=== PATIENT | male | born 1970 | race Caucasian/White ===

== ENCOUNTER 2017-01-27 09:44 | Emergency (ER) | payer SELFPAY ==
[2017-01-27] MEDS ORDERED: NORMAL SALINE 1000 ML 1,000 ML IV ONE (10:25)
[2017-01-27 10:26] LABS: ABSOLUTE EOSINOPHILS # (AUTO) 0.2 10^3/uL (0.0-0.6); ABSOLUTE LYMPHOCYTES (AUTO) 1.7 10^3/uL (0.5-4.7); ABSOLUTE MONOCYTES (AUTO) 0.5 10^3/uL (0.1-1.4); ABSOLUTE NEUT (AUTO) 4.3 10^3/uL (1.7-8.2); BASOPHILS % (AUTO) 0.5 % (0-2); EOSINOPHILS % (AUTO) 2.8 % (0-6); HEMATOCRIT 45.9 % (37.9-51.0); HGB HCT DIFFERENCE 2.1; LYMPHOCYTES % (AUTO) 25.1 % (13-45); MEAN CORPUSCULAR HGB CONC 34.9 g/dL (32.0-36.0); MEAN CORPUSCULAR VOLUME 86 fl (80-97); MONOCYTES % (AUTO) 7.5 % (3-13); RED BLOOD COUNT 5.34 10^6/uL (4.35-5.55); RED CELL DISTRIBUTION WIDTH 13.7 % (11.5-14.0); SEGMENTED NEUTROPHILS % (AUTO) 64.1 % (42-78); WHITE BLOOD COUNT 6.6 10^3/uL (4.0-10.5)
[2017-01-27 10:30] LABS: APPEARANCE,URINE CLEAR; BILIRUBIN,URINE NEGATIVE (NEGATIVE); GLUCOSE, URINE >=500 mg/dL (NEGATIVE); KETONES,URINE NEGATIVE (NEGATIVE); LEUKOCYTE ESTERASE,URINE NEGATIVE (NEGATIVE); NITRITE,URINE NEGATIVE (NEGATIVE); PROTEIN,URINE NEGATIVE (NEGATIVE); URINE SPECIFIC GRAVITY 1.032; UROBILINOGEN,URINE NEGATIVE mg/dL (<2.0)
--- NOTE | 2017-01-27 10:31 | ER Document Report ---
ED Blood Sugar Problem - General Chief Complaint: High Blood Sugar Stated Complaint: BLOOD SUGAR PROBLEM Mode of Arrival: Ambulatory Information source: Patient TRAVEL OUTSIDE OF THE [place] IN LAST 30 DAYS: No - HPI Onset: This morning Onset/Duration: Gradual, Persistent Quality of pain: No pain - FEELS ODD Severity: Mild Insulin taken: No Glucose taken: No Associated symptoms: Dry mucous membranes, Increased thirst, Frequent urination , Weakness Similar symptoms previously: Yes Recently seen / treated by doctor: No - RECENTLY BECAME EMPLOYED, NO LONGER ELIGIBLE FOR [facility]. - Related Data Allergies/Adverse Reactions: No Known Allergies Allergy (Verified 01/27/17 09:59) Past Medical History - General Information source: Patient - Social History Smoking Status: Current Every Day Smoker Cigarette use (# per day): Yes Chew tobacco use (# tins/day): No Smoking Education Provided: No Frequency of alcohol use: None Drug Abuse: None Lives with: Spouse/Significant other Family History: DM Patient has suicidal ideation: No Patient has homicidal ideation: No - Past Medical History Cardiac Medical History: Reports: Hx Congestive Heart Failure Pulmonary Medical History: Reports: Hx COPD EENT Medical History: Reports: None Neurological Medical History: Reports: None Endocrine Medical History: Reports: Hx Diabetes Mellitus Type 2 Renal/ Medical History: Reports: None. Denies: Hx Peritoneal Dialysis Malignancy Medical History: Reports None Musculoskeltal Medical History: Reports None Psychiatric Medical History: Reports: None Past Surgical History: Reports: Hx Appendectomy, Hx Orthopedic Surgery, Hx Tonsillectomy - Immunizations Hx Diphtheria, Pertussis, Tetanus Vaccination: Yes Review of Systems - Review of Systems Constitutional: Weakness EENT: See HPI Cardiovascular: No symptoms reported Respiratory: No symptoms reported Gastrointestinal: No symptoms reported Genitourinary: No symptoms reported Musculoskeletal: No symptoms reported Skin: No symptoms reported Neurological/Psychological: No symptoms reported Physical Exam - Vital signs Vitals: Temp Pulse Resp BP Pulse Ox 98.2 F 73 18 112/71 93 01/27/17 09:51 01/27/17 09:51 01/27/17 09:51 01/27/17 09:51 01/27/17 09:51 Interpretation: Normal - General General appearance: Appears well, Alert In distress: None - HEENT Head: Normocephalic Eyes: Normal Conjunctiva: Normal Ears: Normal Nasal: Normal Mouth/Lips: Normal Mucous membranes: Dry Pharynx: Normal Neck: Normal - Respiratory Respiratory status: No respiratory distress Chest status: Nontender - Cardiovascular Rhythm: Regular Heart sounds: Normal auscultation Murmur: No - Abdominal Inspection: Obese - Extremities General upper extremity: Normal inspection General lower extremity: Normal inspection - Neurological Neuro grossly intact: Yes Cognition: Normal Orientation: AAOx4 - Psychological Associated symptoms: Normal affect, Normal mood - Skin Skin Temperature: Warm Skin Moisture: Dry Skin Color: Normal Skin Turgor: Elastic Course - Vital Signs Vital signs: Temp Pulse Resp BP Pulse Ox 98.2 F 73 18 112/71 99 01/27/17 09:51 01/27/17 09:51 01/27/17 09:51 01/27/17 09:51 01/27/17 13:00 - Laboratory Result Diagrams: 01/27/17 10:15 01/27/17 10:15 Laboratory results interpreted by me: 01/27/17 01/27/17 01/27/17 10:15 10:15 10:41 Sodium 136.6 L Glucose 434 H* POC Glucose 446 H* Urine Glucose (UA) >=500 H 01/27/17 01/27/17 01/27/17 11:36 12:32 13:37 Sodium Glucose POC Glucose 400 H 319 H 282 H Urine Glucose (UA) Discharge - Discharge Clinical Impression: Hyperglycemia without ketosis Diabetes type 2, uncontrolled Qualifiers: Diabetes mellitus complication status: without complication Diabetes mellitus care home insulin use: unspecified buttermaker insulin use status Qualified Code(s ): E11.65 - Type 2 diabetes mellitus with hyperglycemia Condition: Stable Disposition: HOME, SELF-CARE Instructions: Diabetes ([facility]), Glucophage (OM), Oral Hypoglycemic Medication ( OM) Additional Instructions: REDUCE YOUR METFORMIN TO 1000 mg TWICE A DAY. BEGIN TAKING GLIPIZIDE, 10 mg EACH MORNING. TAKE INSULIN 70/30, 20 UNITS EACH MORNING AND 20 UNITS EACH EVENING. FOLLOW THE RECOMMENDED DIABETIC DIET. [facility]LLOW UP WITH [facility], OR WITH THE [facility] CLINIC AT [facility]. Prescriptions: Glipizide [Glucotrol 10 mg Tablet] 10 mg PO QAM #30 tablet Forms: Smoking Cessation Education
[2017-01-27 10:51] LABS: ALANINE AMINOTRANSFERASE 40 U/L (21-72); ALKALINE PHOSPHATASE 103 U/L (38-126); ANION GAP 13 (5-19); ASPARTATE AMINO TRANSFERASE 20 U/L (17-59); BILIRUBIN,DIRECT 0.3 mg/dL (0.0-0.4); BLOOD UREA NITROGEN 12 mg/dL (7-20); CALCIUM 9.3 mg/dL (8.4-10.2); CARBON DIOXIDE 26 mmol/L (22-30); CHLORIDE 98 mmol/L (98-107); CREATININE RESULT 0.76 mg/dL (0.52-1.25); POTASSIUM 4.6 mmol/L (3.6-5.0); SODIUM 136.6 mmol/L (137-145); TOTAL PROTEIN 6.8 g/dL (6.3-8.2)
[2017-01-27] MEDS ORDERED: INSULIN REG, HUMAN 100 UNIT/ML 3 ML VIAL (PYX) IV ONE (11:04)
[2017-01-27] MEDS ORDERED: NORMAL SALINE 100 ML with INSULIN REGULAR, HUMAN 100 UNIT IV PRN ×2 (11:05)
[2017-01-27] MEDS ORDERED: NORMAL SALINE 1000 ML 1,000 ML IV PRN (11:05)
[2017-01-27 11:14] LABS: GLUCOSE 434 mg/dL (75-110)
[2017-01-27] MEDS ORDERED: INSULIN REG, HUMAN 100 UNIT/ML 3 ML VIAL (PYX) ONE (11:34)
[2017-01-27 14:39] VITALS: BP 116/79
--- NOTE | 2017-01-27 15:07 | EKG REPORT ---
SEVERITY:- BORDERLINE ECG - SINUS RHYTHM PROBABLE LEFT ATRIAL ABNORMALITY : Confirmed by: Dustin Pantoja 27-Jan-2017 15:05:49
== END 2017-01-27 14:38 | disposition home or self-care (01) ==
LOC: ER 09:44
DX: E11.65 Type 2 diabetes mellitus with hyperglycemia (principal); J44.9 Chronic obstructive pulmonary disease, unspecified; R53.1 Weakness; R35.0 Frequency of micturition; R63.1 Polydipsia; F17.210 Nicotine dependence, cigarettes, uncomplicated; Z83.3 Family history of diabetes mellitus
CPT/HCPCS: 93005; 99285; 96360; 36415; 82962; 85025; 80053; 81001; 93010; J1815; J7030

== ENCOUNTER 2017-01-28 10:57 | Emergency (ER) | payer SELFPAY ==
--- NOTE | 2017-01-28 11:13 | ER Document Report ---
ED Medical Screen (RME) - General Stated Complaint: BLOOD SUGAR PROBLEM Time seen by provider: 11:12 Mode of Arrival: Ambulatory Information source: Patient Notes: 47-year-old male presents to ED for lightheadedness slightly dizzy blood sugar of 328 before he ate and 358 and hour ago. He states he is a type II diabetic. He states he uses metformin and insulin. States his normal blood sugar is around 200. I have greeted and performed a rapid initial assessment of this patient. A comprehensive ED assessment and evaluation of the patient, analysis of test results and completion of medical decision making process will be conducted by an additional ED providers. TRAVEL OUTSIDE OF THE [place] IN LAST 30 DAYS: No - Related Data Allergies/Adverse Reactions: No Known Allergies Allergy (Verified 01/28/17 11:11) Past Medical History - Past Medical History Cardiac Medical History: Reports: Hx Congestive Heart Failure Pulmonary Medical History: Reports: Hx COPD Endocrine Medical History: Reports: Hx Diabetes Mellitus Type 2 Renal/ Medical History: Denies: Hx Peritoneal Dialysis Past Surgical History: Reports: Hx Appendectomy, Hx Orthopedic Surgery, Hx Tonsillectomy - Immunizations Hx Diphtheria, Pertussis, Tetanus Vaccination: Yes Physical Exam - Vital signs Vitals: Temp Pulse Resp BP Pulse Ox 98.2 F 71 17 125/69 98 01/28/17 11:09 01/28/17 11:01/28/17 11:01/28/17 11:09 01/28/17 11:09 Course - Vital Signs Vital signs: Temp Pulse Resp BP Pulse Ox 98.2 F 71 17 125/69 98 01/28/17 11:09 01/28/17 11:09 01/28/17 11:09 01/28/17 11:09 01/28/17 11:09
[2017-01-28 11:58] LABS: ABSOLUTE EOSINOPHILS # (AUTO) 0.1 10^3/uL (0.0-0.6); ABSOLUTE LYMPHOCYTES (AUTO) 1.8 10^3/uL (0.5-4.7); ABSOLUTE MONOCYTES (AUTO) 0.4 10^3/uL (0.1-1.4); ABSOLUTE NEUT (AUTO) 3.6 10^3/uL (1.7-8.2); BASOPHILS % (AUTO) 0.5 % (0-2); EOSINOPHILS % (AUTO) 2.5 % (0-6); HEMATOCRIT 42.3 % (37.9-51.0); HEMOGLOBIN 14.7 g/dL (13.5-17.0); HGB HCT DIFFERENCE 1.8; LYMPHOCYTES % (AUTO) 29.7 % (13-45); MEAN CORPUSCULAR HGB CONC 34.9 g/dL (32.0-36.0); MEAN CORPUSCULAR VOLUME 86 fl (80-97); MONOCYTES % (AUTO) 7.3 % (3-13); RED BLOOD COUNT 4.92 10^6/uL (4.35-5.55); RED CELL DISTRIBUTION WIDTH 13.5 % (11.5-14.0)
[2017-01-28 12:05] LABS: APPEARANCE,URINE CLEAR; BILIRUBIN,URINE NEGATIVE (NEGATIVE); GLUCOSE, URINE >=500 mg/dL (NEGATIVE); KETONES,URINE NEGATIVE (NEGATIVE); LEUKOCYTE ESTERASE,URINE NEGATIVE (NEGATIVE); NITRITE,URINE NEGATIVE (NEGATIVE); PROTEIN,URINE NEGATIVE (NEGATIVE); URINE SPECIFIC GRAVITY 1.032; UROBILINOGEN,URINE NEGATIVE mg/dL (<2.0)
[2017-01-28 12:25] LABS: ALANINE AMINOTRANSFERASE 39 U/L (21-72); ALBUMIN 3.7 g/dL (3.5-5.0); ALKALINE PHOSPHATASE 102 U/L (38-126); ANION GAP 9 (5-19); ASPARTATE AMINO TRANSFERASE 20 U/L (17-59); BILIRUBIN,DIRECT 0.3 mg/dL (0.0-0.4); BILIRUBIN,TOTAL 0.7 mg/dL (0.2-1.3); BLOOD UREA NITROGEN 9 mg/dL (7-20); CALCIUM 9.2 mg/dL (8.4-10.2); CARBON DIOXIDE 26 mmol/L (22-30); CHLORIDE 103 mmol/L (98-107); CREATININE RESULT 0.72 mg/dL (0.52-1.25); GLUCOSE 327 mg/dL (75-110); POTASSIUM 4.3 mmol/L (3.6-5.0); SODIUM 138.3 mmol/L (137-145); TOTAL PROTEIN 6.5 g/dL (6.3-8.2)
--- NOTE | 2017-01-28 13:49 | ER Document Report ---
ED Blood Sugar Problem - General Mode of Arrival: Ambulatory Information source: Patient TRAVEL OUTSIDE OF THE [place] IN LAST 30 DAYS: No - HPI Patient complains to provider of: Hyperglycemia Onset: This morning Associated symptoms: Other - see notes above <BECKY MAC - Last Filed: 01/28/17 13:42> <BENY ALVAREZ - Last Filed: 02/02/17 21:16> - General Chief Complaint: High Blood Sugar Stated Complaint: BLOOD SUGAR PROBLEM Notes: 47 year old male with history of diabetes (insulin dependent) presents to the ED complaining of dizziness and hyperglycemia that started this morning. Patient states that his blood sugar was 328 this morning and medicated with 70/ 30 insulin. Patient states that he isn't prescribed the insulin, but is approved by the [facility] to use his friend's insulin. Patient additionally takes metformin that is prescribed by the [facility]. Patient explains that he went a period of time in between jobs without insurance , but will reestablish insurance in 45 days. Patient was recently seen in the ED with similar complaints and states he was given a prescription for Glucotrol. Patient last saw the [facility] over 3 months ago. ( BECKY MAC) - Related Data Allergies/Adverse Reactions: No Known Allergies Allergy (Verified 01/28/17 11:11) Past Medical History - General Information source: Patient - Social History Smoking Status: Current Every Day Smoker Chew tobacco use (# tins/day): No Frequency of alcohol use: None Drug Abuse: None Family History: DM Patient has suicidal ideation: No Patient has homicidal ideation: No - Past Medical History Cardiac Medical History: Reports: Hx Congestive Heart Failure Pulmonary Medical History: Reports: Hx COPD Endocrine Medical History: Reports: Hx Diabetes Mellitus Type 2 Renal/ Medical History: Denies: Hx Peritoneal Dialysis Past Surgical History: Reports: Hx Appendectomy, Hx Orthopedic Surgery, Hx Tonsillectomy - Immunizations Hx Diphtheria, Pertussis, Tetanus Vaccination: Yes <BECKY MAC - Last Filed: 01/28/17 13:42> Review of Systems - Review of Systems Constitutional: No symptoms reported EENT: No symptoms reported Cardiovascular: See HPI, Dizziness, Other - hyperglycemia Respiratory: No symptoms reported Gastrointestinal: No symptoms reported Genitourinary: No symptoms reported Male Genitourinary: No symptoms reported Musculoskeletal: No symptoms reported Skin: No symptoms reported Hematologic/Lymphatic: No symptoms reported Neurological/Psychological: No symptoms reported -: Yes All other systems reviewed and negative <BECKY MAC - Last Filed: 01/28/17 13:42> Physical Exam - General General appearance: Alert In distress: None - HEENT Head: Normocephalic, Atraumatic Eyes: Normal Extraocular movements intact: Yes Pupils: PERRL - Respiratory Respiratory status: No respiratory distress Breath sounds: Normal - Cardiovascular Rhythm: Regular Heart sounds: Normal auscultation - Abdominal Inspection: Normal Distension: No distension Tenderness: Nontender - Back Back: Normal - Extremities General upper extremity: Normal inspection, Normal ROM General lower extremity: Normal inspection, Normal ROM - Neurological Neuro grossly intact: Yes Cognition: Normal Orientation: AAOx4 [place] Coma Scale Eye Opening: Spontaneous [place] Coma Scale Verbal: Oriented [place] Coma Scale Motor: Obeys Commands [place] Coma Scale Total: 15 Speech: Normal - Psychological Associated symptoms: Normal affect, Normal mood - Skin Skin Temperature: Warm Skin Moisture: Dry Skin Color: Normal <MAC,BECKY - Last Filed: 01/28/17 13:42> Course - Laboratory Result Diagrams: 01/28/17 11:25 01/28/17 11:25 <BECKY MAC - Last Filed: 01/28/17 13:42> - Laboratory Result Diagrams: 01/28/17 11:25 01/28/17 11:25 <BENY ALVAREZ - Last Filed: 02/02/17 21:16> - Re-evaluation Re-evalutation: 01/28/17 14:07 I personally performed the services described in the documentation, reviewed and edited the documentation which was dictated to my scribe in my presence, and it accurately records my words and actions. Patient presents emergency Department with elevated blood sugar it's been elevated for quite some time they're unable to afford it. He is not in DKA as an appointment has meds but he can't afford them. He is not symptomatic no chest pain or shortness of breath. Talked to the major case detective she actually is aware of a free clinic for diabetes in [facility] he's been given the information says is going to follow up with her tomorrow discussed follow-up locally and help with prescription medications and reasons for ED return sooner (BENY ALVAREZ) - Vital Signs Vital signs: Temp Pulse Resp BP Pulse Ox 98.2 F 69 17 128/69 H 96 01/28/17 11:09 01/28/17 14:30 01/28/17 11:09 01/28/17 14:30 01/28/17 14:30 - Laboratory Laboratory results interpreted by me: 01/28/17 01/28/17 01/28/17 11:17 11:25 11:25 Glucose 327 H POC Glucose 321 H Urine Glucose (UA) >=500 H Discharge <BECKY MAC - Last Filed: 01/28/17 13:42> <BENY ALVAREZ - Last Filed: 02/02/17 21:16> - Discharge Clinical Impression: Hyperglycemia Condition: Stable Disposition: HOME, SELF-CARE Additional Instructions: Hyperglycemia (High Blood Sugar) You have an abnormally high blood sugar. Not all high blood sugar requires long-term treatment. High blood sugar can be due to medications, , or the stress of illness. (These cases are "borderline diabetes.") If the doctor feels your high blood sugar might resolve with time, you may not require treatment now. You will be scheduled for further evaluation. It's very important that you follow through, to see if the blood sugar returns to normal levels. Uncontrolled high blood sugar leads to early heart disease, strokes, nerve damage, eye damage, and kidney damage. Call the physician if there is faintness, excess sleepiness, or very rapid breathing. You have been given information for the diabetic clinic in [facility] follow -up with them in 1-2 days and discussed reasons Fredia return sooner Forms: Return to Work Scribe Documentation - Scribe Written by Hector:: Hector Steve, 01/28/2017 1351 acting as scribe for :: Jeet <BECKY MAC - Last Filed: 01/28/17 13:42>
[2017-01-28 20:21] VITALS: BP 128/69
== END 2017-01-28 14:30 | disposition home or self-care (01) ==
LOC: ER 10:57
DX: E11.65 Type 2 diabetes mellitus with hyperglycemia (principal); F17.200 Nicotine dependence, unspecified, uncomplicated
CPT/HCPCS: 36415; 80053; 81001; 82962; 85025; 99284

== ENCOUNTER 2017-06-28 19:08 | Emergency (ER) | payer SELFPAY ==
[2017-06-28] MEDS ORDERED: LIDOCAINE 1% INJ-PF (10 MG/ML) 30 ML SDV INJ ONE (19:58)
[2017-06-28] MEDS ORDERED: OXYCODONE-ACETAMINOPHEN 5-325 MG TABLET PO ONE (19:58)
[2017-06-28] MEDS ORDERED: SULFAMETHOXAZOLE/TRIMETHOPRIM 800-160 MG TABLET PO ONE (19:58)
--- NOTE | 2017-06-28 20:00 | ER Document Report ---
ED Skin Rash/Insect Bite/Abscs - General Chief Complaint: Abscess Stated Complaint: ABSCESS Time Seen by Provider: 06/28/17 19:43 TRAVEL OUTSIDE OF THE [place] IN LAST 30 DAYS: No - HPI Patient complains to provider of: Tender/swollen area Onset: Other - 4-5 days ago Onset/Duration: Gradual, Worse Quality of pain: Achy, Pressure Severity: Severe Pain Level: 5 Skin Character: Abscess - left side of the gluteal fold below the anus Skin Temperature: Hot Quality of rash: Painful Identify cause: No Similar symptoms previously: Yes - h/o abscess and MRSA Notes: Denies any fevers, chills, active drainage from the site. Patient with a history of diabetes, high blood pressure and congestive heart failure. [facility] - Related Data Allergies/Adverse Reactions: No Known Allergies Allergy (Verified 06/28/17 19:12) Past Medical History - Social History Smoking Status: Current Every Day Smoker Family History: DM - Past Medical History Cardiac Medical History: Reports: Hx Congestive Heart Failure Pulmonary Medical History: Reports: Hx COPD Endocrine Medical History: Reports: Hx Diabetes Mellitus Type 2 Renal/ Medical History: Reports: Hx Kidney Stones. Denies: Hx Peritoneal Dialysis Past Surgical History: Reports: Hx Appendectomy, Hx Orthopedic Surgery, Hx Tonsillectomy - Immunizations Hx Diphtheria, Pertussis, Tetanus Vaccination: Yes Review of Systems - Review of Systems Constitutional: No symptoms reported Skin: See HPI -: Yes All other systems reviewed and negative Physical Exam - Vital signs Vitals: Temp Pulse Resp BP Pulse Ox 99.3 F 99 20 121/67 97 06/28/17 19:13 06/28/17 19:13 06/28/17 19:13 06/28/17 19:13 06/28/17 19:13 - General General appearance: Appears well, Alert In distress: Mild - Respiratory Respiratory status: No respiratory distress Chest status: Nontender Breath sounds: Normal Chest palpation: Normal - Cardiovascular Rhythm: Regular Heart sounds: Normal auscultation, S1 appreciated, S2 appreciated Murmur: No Pulses: Normal: Radial Normal capillary refill: Yes - Rectal Tenderness: Yes Hemorrhoids: None - Neurological Neuro grossly intact: Yes Cognition: Normal Orientation: AAOx4 [place] Coma Scale Eye Opening: Spontaneous [place] Coma Scale Verbal: Oriented [place] Coma Scale Motor: Obeys Commands [place] Coma Scale Total: 15 - Skin Notes: Abscess within the gluteal fold on the left side measuring approximately 10 cm of indurated tissue with an abscess pocket of approximately 4 cm in diameter. Erythema approximately 5 cm in diameter. Tender to touch with central fluctuance. No active drainage. Course - Re-evaluation Re-evalutation: 06/28/17 21:50 Patient is a 47-year-old male who is hemodynamic stable, no acute distress afebrile. I&D performed at the bedside for approximately 12-15 cc of purulent material. Site was irrigated and packed using iodoform gauze. Patient to follow-up in 2-3 days for wound check. Patient initiated on Bactrim given history of MRSA. Wound culture sent. Patient given strict return precautions otherwise stable for discharge home can follow-up with us as scheduled. - Vital Signs Vital signs: Temp Pulse Resp BP Pulse Ox 98.2 F 98 18 113/68 99 06/28/17 21:35 06/28/17 21:35 06/28/17 21:35 06/28/17 21:35 06/28/17 21:35 Procedures - Incision and Drainage Left Buttock Type: Simple Anesthetic type: 1% Lidocaine mL's of anesthetic: 15 Blade size: 11 I&D procedure: Betadine prep applied, Iodoform packing placed Incision Method: Incision made by scalpel Amount/type of drainage: 15cc purulent material Discharge - Discharge Clinical Impression: Abscess Condition: Good Disposition: HOME, SELF-CARE Additional Instructions: Please return for a wound check in 2-3 days ABSCESS: You have an abscess (boil). This a pus-forming infection, usually due to staph. Some boils may be left to drain on their own, but most require lancing. From the time the tender lump first appears, it may be three or four days before the abscess is ready to wendy. Local heat and rest help at this stage of treatment. An antibiotic may prevent spread of the infection. Once the abscess is opened, packing may be placed into it. This is done so pus is not sealed inside by premature closure of the cavity. The packing will be removed at your follow-up visit or you may be advised to remove it yourself at home. Sometimes this packing must be replaced a few times during healing. The wound will heal with surprisingly little scar. Depending on the size and location of an abscess, healing can take one to four weeks. You may shower and wash the area around the incision site two or three times a day. Antibiotics may be prescribed, but are usually not necessary after an abscess has been drained. If you develop fever, chills, worsening pain, or increasing swelling in the area, call the doctor or return immediately. POST INCISION AND DRAINAGE: You have had an incision made to allow drainage of an abscess. The incision must remain open so that pus and debris can drain from the wound. If the abscess cavity is large, packing is placed. This keeps the tissues from collapsing and trapping pus inside, while the body shrinks the cavity. The packing may need to be replaced every day or two. The physician will instruct you on the packing. Keep a bulky dressing over the area. Replace it if it becomes saturated with blood or pus. Do not disturb the packing (if present). You may shower and cleanse the area with gentle soap and warm water two or three times a day. Local warmth may be soothing, and may promote faster healing. Return if you develop high fever or chills, or if you note spreading redness, increasing swelling, or increasing tenderness. MRSA CELLULITIS: You have an infection of your skin and underlying soft tissues called cellulitis. This is due to bacteria, which can enter through any break in the skin, or even through an irritated hair follicle. Untreated, cellulitis will usually worsen and may form an abscess which requires draining. Although many bacterial organisms can cause cellulitis and abscess formations, the most likely bacteria is Methicillin-Resistant Staph Aureus, or MRSA for short. Antibiotics are required. Usually, warm packs or warm soaks, and elevation of the infected area are recommended. You should start getting better within 24 to 36 hours. Most infections respond quickly to the right medication. Follow-up care is important, however, to check for abscess (boil) formation, unsuspected foreign body, or resistant infection. If you develop fever, chills, or if the area of infection is becoming rapidly more swollen or painful, call the doctor at once. ORAL NARCOTIC MEDICATION: You have been given a prescription for pain control. This medication is a narcotic. It's best taken with food, as nausea can result if taken on an empty stomach. Don't operate machinery or drive within six hours of taking this medication. Do not combine this medicine with alcohol, or with any medication which can cause sedation (such as cold tablets or sleeping pills) unless you get permission from the physician. Narcotics tend to cause constipation. If possible, drink plenty of fluids and eat a diet high in fiber and fruits. TRIMETHOPRIM-SULFA: You have been given a prescription for trimethoprim-sulfa (TMS, Septra, Bactrim). This is a combination antibiotic of the sulfa class, often used for urinary tract infections, middle ear infections, bronchitis, shigella intestinal infection, and Pneumocystis pneumonia. TMS is usually well-tolerated. Occasional side effects include nausea and decreased appetite. Septra is not recommended for infants less than two months of age. Do not take this medication if you have experienced severe side effects or allergy to sulfa medicine. You should stop this medicine at once and contact your physician if you develop any rash, joint pain, shortness of breath, bruising, or jaundice ( yellow color in the skin), or if you develop any other new or unusual symptoms. FOLLOW-UP CARE: Most simple abscesses will not require a follow up visit. If you had packing placed in the abscess, remove it as instructed by the physician. If you have been referred to a physician for follow-up care, call the physicians office for an appointment as you were instructed or within the next two days. If you experience worsening or a significant change in your symptoms, return to the Emergency Department at any time for re-evaluation. Prescriptions: Oxycodone HCl/Acetaminophen [Percocet 5-325 mg Tablet] 1 tab PO ASDIR PRN #15 tab PRN Reason: Sulfamethoxazole/Trimethoprim [Bactrim Ds Tablet] 2 each PO BID 7 Days tablet Referrals: [facility] [Primary [facility] Provider] - Follow up as needed
[2017-06-28 21:37] VITALS: BP 113/68
== END 2017-06-28 21:35 | disposition home or self-care (01) ==
LOC: ER 19:08
PROC: 0H98XZZ Drainage of Buttock Skin, External Approach (ICD-10-PCS; principal; 2017-06-28)
DX: L02.31 Cutaneous abscess of buttock (principal); E11.9 Type 2 diabetes mellitus without complications; I10 Essential (primary) hypertension; J44.9 Chronic obstructive pulmonary disease, unspecified; F17.200 Nicotine dependence, unspecified, uncomplicated; Z86.14 Personal history of Methicillin resistant Staphylococcus aureus infection
CPT/HCPCS: 99283; 87070; 87205; 87075; 87077; 87186; 10060; A6266; J3490

== ENCOUNTER 2017-07-03 16:43 | Inpatient (IN) | payer SELFPAY ==
[~2017-07-03 16:43] MED LIST: DEXAMETHASONE SOD PHOSPHATE INJ 4 MG/1 ML VIAL ONE; SUCCINYLCHOLINE CHLORIDE INJ 200 MG/10 ML VIAL ONE
[2017-07-03] MEDS ORDERED: CLINDAMYCIN 300 MG/D5W RTU 300 MG/50 ML RTUPB IV ONE (17:42)
--- NOTE | 2017-07-03 17:42 | ER Document Report ---
ED Medical Screen (RME) - General Chief Complaint: Abscess Stated Complaint: POST SURGICAL PAIN Time Seen by Provider: 07/03/17 17:35 Mode of Arrival: Ambulatory Information source: Patient Notes: 47-year-old male who had an abscess drained 2 days prior placed on Bactrim presents with worsening symptoms I have greeted and performed a rapid initial assessment of this patient. A comprehensive ED assessment and evaluation of the patient, analysis of test results and completion of the medical decision making process will be conducted by additional ED providers. PHYSICAL EXAMINATION: GENERAL: Well-appearing, well-nourished and in no acute distress. HEAD: Atraumatic, normocephalic. EYES: Pupils equal round extraocular movements intact, conjunctiva are normal. ENT: Nares patent NECK: Normal range of motion LUNGS: No respiratory distress Musculoskeletal: Normal range of motion NEUROLOGICAL: Normal speech, normal gait. PSYCH: Normal mood, normal affect. SKIN: Extensive abscess of the buttocks TRAVEL OUTSIDE OF THE [place] IN LAST 30 DAYS: No - Related Data Allergies/Adverse Reactions: No Known Allergies Allergy (Verified 07/03/17 17:35) Past Medical History - Social History Chew tobacco use (# tins/day): No Frequency of alcohol use: Occasional Drug Abuse: None - Past Medical History Cardiac Medical History: Reports: Hx Congestive Heart Failure Pulmonary Medical History: Reports: Hx COPD Endocrine Medical History: Reports: Hx Diabetes Mellitus Type 2 Renal/ Medical History: Reports: Hx Kidney Stones. Denies: Hx Peritoneal Dialysis Past Surgical History: Reports: Hx Appendectomy, Hx Orthopedic Surgery, Hx Tonsillectomy - Immunizations Hx Diphtheria, Pertussis, Tetanus Vaccination: Yes Physical Exam - Vital signs Vitals: Temp Pulse Resp BP Pulse Ox 99.7 F 95 23 H 140/67 H 97 07/03/17 16:51 07/03/17 16:51 07/03/17 16:51 07/03/17 16:51 07/03/17 16:51 Course - Vital Signs Vital signs: Temp Pulse Resp BP Pulse Ox 99.7 F 95 23 H 140/67 H 97 07/03/17 16:51 07/03/17 16:51 07/03/17 16:51 07/03/17 16:51 07/03/17 16:51
[2017-07-03] MEDS ORDERED: HYDROMORPHONE HCL INJ/PF 2 MG/ML AMPULE IV ONE (17:44)
[2017-07-03 18:41] LABS: ABSOLUTE BASOPHILS # (AUTO) 0.1 10^3/uL (0.0-0.2); ABSOLUTE EOSINOPHILS # (AUTO) 0.3 10^3/uL (0.0-0.6); ABSOLUTE LYMPHOCYTES (AUTO) 1.6 10^3/uL (0.5-4.7); ABSOLUTE MONOCYTES (AUTO) 0.9 10^3/uL (0.1-1.4); ABSOLUTE NEUT (AUTO) 10.7 10^3/uL (1.7-8.2); BASOPHILS % (AUTO) 0.4 % (0-2); EOSINOPHILS % (AUTO) 2.1 % (0-6); HEMOGLOBIN 14.2 g/dL (13.5-17.0); HGB HCT DIFFERENCE -0.4; MEAN CORPUSCULAR HEMOGLOBIN 28.7 pg (27.0-33.4); MEAN CORPUSCULAR HGB CONC 33.1 g/dL (32.0-36.0); MEAN CORPUSCULAR VOLUME 87 fl (80-97); MONOCYTES % (AUTO) 6.7 % (3-13); RED BLOOD COUNT 4.96 10^6/uL (4.35-5.55); RED CELL DISTRIBUTION WIDTH 13.2 % (11.5-14.0); SEGMENTED NEUTROPHILS % (AUTO) 78.8 % (42-78); WHITE BLOOD COUNT 13.6 10^3/uL (4.0-10.5)
[2017-07-03] MEDS ORDERED: HYDROMORPHONE HCL INJ/PF 2 MG/ML AMPULE IV PRN (18:53)
[2017-07-03] MEDS ORDERED: VANCOMYCIN HCL INJ 1000 MG VIAL IV ONE (18:54)
[2017-07-03] MEDS ORDERED: CEFTRIAXONE 1 GM/D5W RTU 1 GM/50 ML RTUPB IV ONE (18:56)
[2017-07-03] MEDS ORDERED: NORMAL SALINE 1000 ML 1,000 ML IV ONE (18:57)
--- NOTE | 2017-07-03 18:58 | ER Document Report ---
ED General - General Chief Complaint: Abscess Stated Complaint: POST SURGICAL PAIN Time Seen by Provider: 07/03/17 17:35 Mode of Arrival: Ambulatory Notes: Patient is a 47-year-old male with past medical history of insulin-dependent diabetes, morbid obesity, hypertension who presents with worsening of a left gluteal abscess. Patient did have an incision and drainage performed at the bedside 3 days prior and was placed on TMP-SMX at that time. He states that his symptoms however have not improved and actually of dramatically worsened. He describes spreading of the area of induration and erythema. He also notes a dramatically worsening pain that he does describe as a severe, constant, throbbing pain to the left buttock radiating into his groin. He has been taking Percocet without any improvement of the pain. Touching area worsens the pain. He has had fever at home up to 101.1. He denies any vomiting or constitutional symptoms. No history of similar symptoms in the past. TRAVEL OUTSIDE OF THE [place] IN LAST 30 DAYS: No - Related Data Allergies/Adverse Reactions: No Known Allergies Allergy (Verified 07/03/17 17:35) Past Medical History - General Information source: Patient - Social History Smoking Status: Current Every Day Smoker Chew tobacco use (# tins/day): No Frequency of alcohol use: Occasional Drug Abuse: None Lives with: Spouse/Significant other Family History: Reviewed & Not Pertinent, DM - Past Medical History Cardiac Medical History: Reports: Hx Congestive Heart Failure Pulmonary Medical History: Reports: Hx COPD Endocrine Medical History: Reports: Hx Diabetes Mellitus Type 2 Renal/ Medical History: Reports: Hx Kidney Stones. Denies: Hx Peritoneal Dialysis Past Surgical History: Reports: Hx Appendectomy, Hx Orthopedic Surgery, Hx Tonsillectomy - Immunizations Hx Diphtheria, Pertussis, Tetanus Vaccination: Yes Review of Systems - Review of Systems Notes: Constitutional: Positive for fever. HENT: Negative for sore throat. Eyes: Negative for visual changes. Cardiovascular: Negative for chest pain. Respiratory: Negative for shortness of breath. Gastrointestinal: Negative for abdominal pain, vomiting or diarrhea. Genitourinary: Negative for dysuria. Musculoskeletal: Positive for buttock pain Skin: Positive for rash. Neurological: Negative for headaches, weakness or numbness. 10 point ROS negative except as marked above and in HPI. Physical Exam - Vital signs Vitals: Temp Pulse Resp BP Pulse Ox 99.7 F 95 23 H 140/67 H 97 07/03/17 16:51 07/03/17 16:51 07/03/17 16:51 07/03/17 16:51 07/03/17 16:51 Interpretation: Hypertensive Notes: PHYSICAL EXAMINATION: GENERAL: Appears uncomfortable but in no acute distress HEAD: Atraumatic, normocephalic. EYES: Pupils equal round and reactive to light, extraocular movements intact, sclera anicteric, conjunctiva are normal. ENT: nares patent, oropharynx clear without exudates. Moist mucous membranes. NECK: Normal range of motion, supple without lymphadenopathy LUNGS: Breath sounds clear to auscultation bilaterally and equal. No wheezes rales or rhonchi. HEART: Regular rate and rhythm without murmurs ABDOMEN: Soft, nontender, normoactive bowel sounds. No guarding, no rebound. No masses appreciated. : There is a 7 x 5 cm abscess on the left buttock extending from the most medial alvina-anal area toward most the entire area of the left buttock. There is extensive surrounding erythema on the buttock extending to the perineal region. EXTREMITIES: Normal range of motion, no pitting or edema. No cyanosis. NEUROLOGICAL: No focal neurological deficits. Moves all extremities spontaneously and on command. PSYCH: Normal mood, normal affect. SKIN: Warm, Dry, normal turgor, see above Course - Re-evaluation Re-evalutation: 07/03/17 18:56 Patient presents with a very large left buttock abscess with surrounding erythema, significant worsened since he was seen here the for incision and drainage. Rectal examination does not show any evidence of an acute rectal abscess. However given the overall appearance on examination this appears to be at least a 7 x 5 cm area of an abscess I do not believe this would be appropriate for a bedside incision and drainage. I have contacted our surgeon immigration services officer for assessment as I believe patient should go to the operating room for definitive surgical management. He was started on vancomycin and ceftriaxone. IV fluids have been initiated. 07/03/17 19:42 I have discussed this case with Dr. Mistry who has accepted for admission. - Vital Signs Vital signs: Temp Pulse Resp BP Pulse Ox 99.2 F 91 18 136/61 H 94 07/03/17 20:55 07/03/17 20:55 07/03/17 20:55 07/03/17 20:55 07/03/17 20:55 - Laboratory Result Diagrams: 07/03/17 18:10 07/03/17 18:10 Laboratory results interpreted by me: 07/03/17 18:10 WBC 13.6 H Seg Neutrophils % 78.8 H Lymphocytes % 12.0 L Absolute Neutrophils 10.7 H Discharge - Discharge Clinical Impression: Abscess, gluteal, left, Cellulitis, perineum Sepsis Qualifiers: Sepsis type: sepsis due to unspecified organism Qualified Code(s): A41.9 - Sepsis, unspecified organism Condition: Fair Disposition: ADMITTED INPATIENT Admitting Provider: Surgicalist - [facility] Admitted: Surgical Floor
[2017-07-03] MEDS ORDERED: MIDAZOLAM 2 MG/2 ML INJ ONE (21:08)
[2017-07-03] MEDS ORDERED: PROPOFOL INJ 200 MG/20 ML VIAL IV ONE (21:08)
[2017-07-03] MEDS ORDERED: FENTANYL CITRATE INJ/PF 100 MCG/2 ML AMPUL ONE (21:08)
[2017-07-03] MEDS ORDERED: ONDANSETRON HCL INJ/PF 4 MG/2 ML SDV ONE (21:08)
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
[2017-07-03] MEDS ORDERED: IPRATROPIUM/ALBUTEROL 0.5-2.5 MG/3 ML AMPUL NEB ONE (22:16)
[2017-07-03] MEDS ORDERED: MORPHINE SULFATE 10 MG/ML INJ ONE (22:16)
[2017-07-03 22:21] LABS: ALANINE AMINOTRANSFERASE 25 U/L (21-72); ALBUMIN 3.1 g/dL (3.5-5.0); ALKALINE PHOSPHATASE 139 U/L (38-126); ANION GAP 10 (5-19); ASPARTATE AMINO TRANSFERASE 16 U/L (17-59); BILIRUBIN,DIRECT 0.5 mg/dL (0.0-0.4); BILIRUBIN,TOTAL 0.5 mg/dL (0.2-1.3); BLOOD UREA NITROGEN 10 mg/dL (7-20); CALCIUM 9.1 mg/dL (8.4-10.2); CARBON DIOXIDE 27 mmol/L (22-30); CHLORIDE 96 mmol/L (98-107); CREATININE RESULT 0.73 mg/dL (0.52-1.25); GLUCOSE 346 mg/dL (75-110); POTASSIUM 4.4 mmol/L (3.6-5.0); SODIUM 133.3 mmol/L (137-145); TOTAL PROTEIN 6.3 g/dL (6.3-8.2)
[2017-07-03] MEDS ORDERED: DIPHENHYDRAMINE HCL 50 MG/ML VIAL IV PRN (23:02)
[2017-07-03] MEDS ORDERED: MEPERIDINE HCL/PF INJ 25 MG/1 ML DISP.SYRIN IV PRN (23:02)
[2017-07-03] MEDS ORDERED: PROMETHAZINE HCL INJ 25 MG/1 ML VIAL IV PRN ×2 (23:02)
[2017-07-03] MEDS ORDERED: MORPHINE SULFATE 10 MG/ML INJ IV PRN (23:02)
[2017-07-03] MEDS ORDERED: FENTANYL CITRATE INJ/PF 100 MCG/2 ML AMPUL IV PRN ×3 (23:02)
[2017-07-03] MEDS ORDERED: HYDROMORPHONE HCL INJ/PF 2 MG/ML AMPULE ONE (23:04)
--- NOTE | 2017-07-03 23:17 | EKG REPORT ---
SEVERITY:- NORMAL ECG - SINUS RHYTHM : Confirmed by: Dustin Pantoja 03-Jul-2017 23:17:41
[2017-07-04] MEDS ORDERED: PIPERACILLIN/TAZOBACTAM 3.375 GM VIAL IV PRN (00:02)
[2017-07-04] MEDS ORDERED: HYDROMORPHONE HCL INJ/PF 2 MG/ML AMPULE INJ PRN ×2 (00:03)
[2017-07-04] MEDS ORDERED: NORMAL SALINE 1000 ML 1,000 ML IV PRN ×2 (00:09→08:53)
[2017-07-04] MEDS ORDERED: HYDROMORPHONE HCL INJ/PF 2 MG/ML AMPULE ONE (00:14)
--- NOTE | 2017-07-04 00:18 | OPERATIVE REPORT E ---
Operative Report NAME: GARY JARAMILLO : 1970 AGE: 47Y DATE OF SURGERY: 07/03/2017 ROOM: ED70 PREOPERATIVE DIAGNOSIS: ABSCESS OF THE LEFT PERIANAL AREA WITH CELLULITIS OF THE PERINEAL AREA. POSTOPERATIVE DIAGNOSIS: ABSCESS OF PERIANAL AREA WITH STARTING RONNIE ABSCESS/GANGRENE. OPERATION: Incision and drainage and debridement of left perianal abscess and starting Ronnie gangrene. SURGEON: VELIA TROY M.D. ANESTHESIA: General. INDICATION: This is a 47-year-old male who had an abscess, left perineal area, for the past 6 days. About 4 days ago he came to the emergency room, where it was drained in the ER. However, patient continued to have increasing pains on the left perianal area and came back to the emergency room today. DESCRIPTION OF PROCEDURE: After adequate general anesthesia, the patient was placed in the prone position in a ekoh-yvvl-[id number] position. Perianal area was then prepped 1.5 cm in diameter was subsequently probed and a lot of pus extruded out. Cultures were then obtained. This incision was then extended proximally with the use of cautery. It was extended just enough to be able to put my finger in the digital palpation of at least 2 areas of tunneling, one going to the area close to the rectum, and the other one a little bit more lateral. The excision was then extended laterally. Next, the incision was then extended distally towards the area of the perineum. There was a lot of pus extruded out, and there was a lot of necrotic tissue around the perianal area that was debrided, and also towards the area of the perineum. The necrotic area in the perineal area appears to have stopped between the area of the anus and the scrotal area. The blood supply appears to be reasonable in this site. There was some necrotic tissue that was excised. The length of the incision about 6.5 cm long and about 4 cm deep. The right gluteal muscle was partially exposed, since the abscess cavity was quite deep. The abscess cavity was subsequently pulse irrigated with 4 liters of saline. Hemostasis was then obtained with the use of cautery. It appears the patient may be starting Ronnie gangrene. He will most likely need a reevaluation of the abscess cavity in 24-48 hours, and I will ask the urologist to be with us also. In the meantime, after adequate hemostasis noted, the area was then packed with 2 bottles of half-inch iodoform gauze and another bottle of quarter-inch gauze. Sterile dressings placed over the operative site. Needle, instrument, and sponge count were all correct. The patient tolerated the procedure well. Estimated blood loss about 150 mL. Patient then brought to the recovery room in satisfactory condition. DICTATING PHYSICIAN: VELIA TROY M.D. [id number] PHY#: [id number] ID: [id number] JOB#: [id number] ACCT: [id number] cc:VELIA TROY M.D. >
[2017-07-04] MEDS: HYDROMORPHONE HCL INJ/PF 2 MG/ML AMPULE IV PRN ×8 (00:39→23:31)
--- NOTE | 2017-07-04 00:52 | RADIOLOGY REPORT (SQ) ---
EXAM DESCRIPTION: CHEST SINGLE VIEW COMPLETED DATE/TIME: 07/04/2017 12:36 am REASON FOR STUDY: pre-op history copd COMPARISON: None. EXAM PARAMETERS: NUMBER OF VIEWS: One view. TECHNIQUE: Single frontal radiographic view of the chest acquired. RADIATION DOSE: NA LIMITATIONS: None. FINDINGS: LUNGS AND PLEURA: No consolidation, pneumothorax or pleural effusion. MEDIASTINUM AND HILAR STRUCTURES: No masses. Contour normal. HEART AND VASCULAR STRUCTURES: Heart normal in size. No overt vascular congestion. BONES: No acute findings. HARDWARE: None in the chest. IMPRESSION: No acute radiographic finding in the chest. TECHNICAL DOCUMENTATION: JOB ID: [id number]
[2017-07-04] MEDS ORDERED: PIPERACILLIN/TAZOBACTAM 3.375 GM VIAL IV ONE (04:35)
[2017-07-04 05:07] LABS: ABSOLUTE LYMPHOCYTES (AUTO) 0.8 10^3/uL (0.5-4.7); ABSOLUTE MONOCYTES (AUTO) 0.6 10^3/uL (0.1-1.4); ABSOLUTE NEUT (AUTO) 11.6 10^3/uL (1.7-8.2); BASOPHILS % (AUTO) 0.2 % (0-2); EOSINOPHILS % (AUTO) 0.2 % (0-6); HEMATOCRIT 38.3 % (37.9-51.0); HEMOGLOBIN 13.1 g/dL (13.5-17.0); LYMPHOCYTES % (AUTO) 6.3 % (13-45); MEAN CORPUSCULAR HEMOGLOBIN 29.7 pg (27.0-33.4); MEAN CORPUSCULAR HGB CONC 34.2 g/dL (32.0-36.0); MEAN CORPUSCULAR VOLUME 87 fl (80-97); MONOCYTES % (AUTO) 4.9 % (3-13); RED BLOOD COUNT 4.42 10^6/uL (4.35-5.55); RED CELL DISTRIBUTION WIDTH 13.2 % (11.5-14.0); SEGMENTED NEUTROPHILS % (AUTO) 88.4 % (42-78); WHITE BLOOD COUNT 13.1 10^3/uL (4.0-10.5)
[2017-07-04 05:25] LABS: ANION GAP 9 (5-19); BLOOD UREA NITROGEN 10 mg/dL (7-20); CALCIUM 8.8 mg/dL (8.4-10.2); CARBON DIOXIDE 25 mmol/L (22-30); CHLORIDE 99 mmol/L (98-107); CREATININE RESULT 0.74 mg/dL (0.52-1.25); POTASSIUM 5.2 mmol/L (3.6-5.0); SODIUM 133.2 mmol/L (137-145)
[2017-07-04 05:33] LABS: GLUCOSE 602 mg/dL (75-110)
[2017-07-04] MEDS ORDERED: DEXTROSE 50%-WATER SYRINGE 25 GM/50 ML DOSE IV PRN (05:48)
[2017-07-04] MEDS ORDERED: DEXTROSE 40% GEL 15 GM TUBE X 2 PO PRN (05:48)
[2017-07-04] MEDS ORDERED: GLUCAGON,HUMAN RECOMB 1 MG INJ IM PRN (05:48)
[2017-07-04] MEDS ORDERED: DEXTROSE 40% GEL 15 GM TUBE PO PRN (05:48)
[2017-07-04] MEDS ORDERED: DEXTROSE 50%-WATER SYRINGE 12.5 GM/25 ML DOSE IV PRN (05:48)
[2017-07-04] MEDS: INSULIN LISPRO 100 UNIT/ML 3 ML VIAL SUBCUT PRN ×3 (06:28→21:54)
[2017-07-04] MEDS: PIPERACILLIN SODIUM/TAZOBACTAM 3.375 GM in NORMAL SALINE 100 ML IV SCH ×4 (06:28→23:32)
[2017-07-04] MEDS ORDERED: ENOXAPARIN SODIUM INJ 40 MG/0.4 ML DISP.SYRIN SUBCUT SCH (08:00)
[2017-07-04] MEDS ORDERED: INSULIN REG, HUMAN 100 UNIT/ML 3 ML VIAL (PYX) ONE (08:00)
--- NOTE | 2017-07-04 09:11 | PDOC CONSULTATION ---
Consultation Consult Date: 07/04/17 Consult reason:: abscess History of Present Illness Admission Date/PCP: 07/03/17 23:55 [facility] History of Present Illness: GARY JARAMILLO JR is a 47 year old male Past Medical History Cardiac Medical History: Reports: Congestive Heart Failure Pulmonary Medical History: Reports: Chronic Obstructive Pulmonary Disease (COPD) Endocrine Medical History: Reports: Diabetes Mellitus Type 2 Renal/ Medical History: Reports: Nephrolithiasis Psychiatric Medical History: Denies: Depression Past Surgical History Past Surgical History: Reports: Appendectomy, Orthopedic Surgery, Tonsillectomy Social History Lives with: Spouse/Significant other Smoking Status: Current Every Day Smoker Cigarettes Packs Per Day: 1 Frequency of Alcohol Use: Rare Hx Recreational Drug Use: No Drugs: None Hx Prescription Drug Abuse: No - Advance Directive Resuscitation Status: Full Code Family History Family History: Reviewed & Not Pertinent, DM Parental Family History Reviewed: No Children Family History Reviewed: NA Sibling(s) Family History Reviewed.: NA Medication/Allergy Home Medications: Metformin HCl [Glucophage] 1,000 mg PO BID 09/29/16 Sulfamethoxazole/Trimethoprim [Bactrim Ds Tablet] 1 each PO BID #20 tablet 09/29 Insulin Glargine,Hum.rec.anlog [Lantus] 60 units SQ QHS 07/03/17 Allergies/Adverse Reactions: No Known Allergies Allergy (Verified 07/03/17 17:35) Review of Systems Constitutional: ABSENT: chills, fever(s), headache(s), weight gain, weight loss Eyes: ABSENT: visual disturbances Ears: ABSENT: hearing changes Cardiovascular: ABSENT: chest pain, dyspnea on exertion, edema, orthropnea, palpitations Respiratory: ABSENT: cough, hemoptysis Gastrointestinal: ABSENT: abdominal pain, constipation, diarrhea, hematemesis, hematochezia, nausea, vomiting Genitourinary: ABSENT: dysuria, hematuria Musculoskeletal: ABSENT: joint swelling Integumentary: ABSENT: rash, wounds Neurological: ABSENT: abnormal gait, abnormal speech, confusion, dizziness, focal weakness, syncope Psychiatric: ABSENT: anxiety, depression, homidical ideation, suicidal ideation Endocrine: ABSENT: cold intolerance, heat intolerance, polydipsia, polyuria Hematologic/Lymphatic: ABSENT: easy bleeding, easy bruising Physical Exam Vital Signs: Temp Pulse Resp BP Pulse Ox 98.3 F 93 18 130/79 H 91 L 07/04/17 07:09 07/04/17 07:09 07/04/17 07:09 07/04/17 07:09 07/04/17 07:09 Intake & Output 07/03/17 07/04/17 07/05/17 06:59 06:59 06:59 Intake Total 1400 Balance 1400 Weight 123.3 kg General appearance: PRESENT: no acute distress, well-developed, well-nourished Head exam: PRESENT: atraumatic, normocephalic Eye exam: PRESENT: conjunctiva pink, EOMI, PERRLA. ABSENT: scleral icterus Ear exam: PRESENT: normal external ear exam Mouth exam: PRESENT: moist, tongue midline Neck exam: ABSENT: carotid bruit, JVD, lymphadenopathy, thyromegaly Respiratory exam: PRESENT: clear to auscultation juancho. ABSENT: rales, rhonchi, wheezes Cardiovascular exam: PRESENT: RRR. ABSENT: diastolic murmur, rubs, systolic murmur Pulses: PRESENT: normal dorsalis pedis pul Vascular exam: PRESENT: normal capillary refill GI/Abdominal exam: PRESENT: normal bowel sounds, soft. ABSENT: distended, guarding, mass, organolmegaly, rebound, tenderness Rectal exam: PRESENT: deferred Gentrourinary exam: PRESENT: testicular tenderness. ABSENT: scrotal swelling Extremities exam: PRESENT: full ROM. ABSENT: calf tenderness, clubbing, pedal edema Neurological exam: PRESENT: alert, awake, oriented to person, oriented to place , oriented to time, oriented to situation, CN II-XII grossly intact. ABSENT: motor sensory deficit Psychiatric exam: PRESENT: appropriate affect, normal mood. ABSENT: homicidal ideation, suicidal ideation Skin exam: PRESENT: dry, intact, warm. ABSENT: cyanosis, rash Additional comments: Examination of the perineum reveals some induration present. This induration is present for approximately 2 cm anterior to the surgical drainage incision. It stops before the base of the scrotum. The scrotum is not involved at this time. I see no necrotic tissue or ischemic areas presently. The surgical site and areas of induration are mildly tender but these have markedly improved since prior to surgery according to the patient. Results Laboratory Results: 07/04/17 04:55 07/04/17 04:55 07/04/17 07/04/17 07/04/17 04:55 04:55 04:55 WBC 13.1 H RBC 4.42 Hgb 13.1 L Hct 38.3 MCV 87 MCH 29.7 MCHC 34.2 RDW 13.2 Plt Count 308 Seg Neutrophils % 88.4 H Lymphocytes % 6.3 L Monocytes % 4.9 Eosinophils % 0.2 Basophils % 0.2 Absolute Neutrophils 11.6 H Absolute Lymphocytes 0.8 Absolute Monocytes 0.6 Absolute Eosinophils 0.0 Absolute Basophils 0.0 Sodium 133.2 L Potassium 5.2 H Chloride 99 Carbon Dioxide 25 Anion Gap 9 BUN 10 Creatinine 0.74 Est GFR ( Amer) > 60 Est GFR (Non-Af Amer) > 60 Glucose 602 H* Lactic Acid 1.0 Calcium 8.8 Impressions: Chest X-Ray 07/03/17 00:00 IMPRESSION: No acute radiographic finding in the chest. Assessment & Plan - Plan Summary Plan Summary: Plan: I will continue to monitor this patient's progress with Dr. Mistry. Reexploration or a dressing change in the operating room may be necessary in the future.
[2017-07-04] MEDS ORDERED: NORMAL SALINE 1000 ML 1,000 ML IV ONE ×2 (09:15→13:15)
[2017-07-04] MEDS ORDERED: INSULIN LISPRO 100 UNIT/ML 3 ML VIAL ONE (09:52)
[2017-07-04] MEDS: LACTOBACILLUS ACIDOPHILUS 250 MG TAB PO SCH ×2 (09:53→17:11)
[2017-07-04] MEDS: METFORMIN HCL 500 MG TABLET PO SCH ×2 (09:53→17:11)
[2017-07-04] MEDS: INSULIN GLARGINE,HUM.REC.ANLOG 1,000 UNIT/10 ML UNIT SUBCUT SCH ×2 (09:54→17:11)
[2017-07-04] MEDS: ENOXAPARIN SODIUM INJ 40 MG/0.4 ML DISP.SYRIN SUBCUT SCH (10:05)
[2017-07-04] MEDS: NICOTINE 21 MG/24 HR PATCH.TD24 TD SCH (12:45)
--- NOTE | 2017-07-04 15:10 | PDOC CONSULTATION ---
Consultation Consult Date: 07/04/17 Attending physician:: VELIA TROY Consult reason:: Diabetes History of Present Illness Admission Date/PCP: 07/03/17 23:55 CARING COUNTS INCLUDE 234 BEDS AT THE [facility] History of Present Illness: GARY JARAMILLO JR is a 47 year old male with a past medical history of COPD, diabetes mellitus, congestive heart failure, obstructive sleep apnea who presented to the hospital with an approximate week of left perianal pain. Patient apparently presented to the ED approximately 4 days ago and had a perianal abscess drained in the emergency department. Patient began having fever at home and increasing pain. Patient was found to have a worsening abscess and was seen by surgery. This apparently has already undergone I&D. According to nursing staff, when found to be n.p.o. patient apparently requested his to bring him breakfast. And when I examined patient he has brought a second breakfast. Patient tells me that his sugars have been poorly controlled because his family brings sweets and bread into the home. We are asked to see this patient for diabetic management. Past Medical History Cardiac Medical History: Reports: Congestive Heart Failure Pulmonary Medical History: Reports: Chronic Obstructive Pulmonary Disease (COPD) Endocrine Medical History: Reports: Diabetes Mellitus Type 2 Renal/ Medical History: Reports: Nephrolithiasis Psychiatric Medical History: Reports: Tobacco Dependency Denies: Depression Past Surgical History Past Surgical History: Reports: Appendectomy, Orthopedic Surgery, Tonsillectomy Social History Lives with: Spouse/Significant other Smoking Status: Current Every Day Smoker Cigarettes Packs Per Day: 1 Frequency of Alcohol Use: Rare Hx Recreational Drug Use: No Drugs: None Hx Prescription Drug Abuse: No - Advance Directive Resuscitation Status: Full Code Surrogate healthcare decision maker:: , Family History Family History: CAD, CVA, DM, Other - bright's disease (mom)--eventually on HD for this Parental Family History Reviewed: Yes Children Family History Reviewed: Yes Sibling(s) Family History Reviewed.: Yes Medication/Allergy Home Medications: Metformin HCl [Glucophage] 1,000 mg PO BID 09/29/16 Sulfamethoxazole/Trimethoprim [Bactrim Ds Tablet] 1 each PO BID #20 tablet 09/29 Insulin Glargine,Hum.rec.anlog [Lantus] 60 units SQ QHS 07/03/17 Allergies/Adverse Reactions: No Known Allergies Allergy (Verified 07/03/17 17:35) Review of Systems Constitutional: PRESENT: chills, fatigue, fever(s). ABSENT: headache(s), weight gain, weight loss Eyes: ABSENT: visual disturbances Ears: ABSENT: hearing changes Nose, Mouth, and Throat: PRESENT: headache(s) Cardiovascular: ABSENT: chest pain, dyspnea on exertion, edema, orthropnea, palpitations Respiratory: ABSENT: cough, dyspnea, hemoptysis, sputum Gastrointestinal: PRESENT: abdominal pain, nausea. ABSENT: constipation, diarrhea, hematemesis, hematochezia, melena, vomiting Genitourinary: PRESENT: other - perianal pain. ABSENT: dysuria, hematuria Musculoskeletal: ABSENT: joint swelling Integumentary: ABSENT: rash, wounds Neurological: ABSENT: abnormal gait, abnormal speech, confusion, dizziness, focal weakness, syncope Psychiatric: ABSENT: anxiety, depression, homidical ideation, suicidal ideation Endocrine: ABSENT: cold intolerance, heat intolerance, polydipsia, polyuria Hematologic/Lymphatic: ABSENT: easy bleeding, easy bruising Physical Exam Vital Signs: Temp Pulse Resp BP Pulse Ox 98.3 F 69 18 96/63 L 97 07/04/17 11:00 07/04/17 11:00 07/04/17 11:00 07/04/17 11:00 07/04/17 11:00 Intake & Output 07/03/17 07/04/17 07/05/17 06:59 06:59 06:59 Intake Total 1400 733 Balance 1400 733 Weight 123.3 kg General appearance: PRESENT: morbidly obese, well-developed, well-nourished Head exam: PRESENT: atraumatic, normocephalic Eye exam: PRESENT: conjunctiva pink, EOMI, PERRLA. ABSENT: scleral icterus Ear exam: PRESENT: normal external ear exam Mouth exam: PRESENT: dry mucosa, tongue midline Neck exam: ABSENT: JVD, lymphadenopathy, thyromegaly, tracheal deviation Respiratory exam: PRESENT: clear to auscultation juancho, prolonged expiratory phas , symmetrical. ABSENT: accessory muscle use, crackles, rales, rhonchi, wheezes Cardiovascular exam: PRESENT: RRR, +S1, +S2. ABSENT: diastolic murmur, gallop, rubs, systolic murmur Pulses: PRESENT: normal dorsalis pedis pul Vascular exam: PRESENT: normal capillary refill GI/Abdominal exam: PRESENT: hypoactive bowel sounds, soft. ABSENT: distended, guarding, mass, Swain's sign, organolmegaly, rebound, rigid, tenderness Rectal exam: PRESENT: deferred Gentrourinary exam: PRESENT: other - deferred Extremities exam: PRESENT: full ROM. ABSENT: calf tenderness, clubbing, pedal edema Neurological exam: PRESENT: alert, awake, oriented to person, oriented to place , oriented to time, oriented to situation, CN II-XII grossly intact. ABSENT: motor sensory deficit Psychiatric exam: PRESENT: appropriate affect, normal mood. ABSENT: homicidal ideation, suicidal ideation Skin exam: PRESENT: dry, intact, warm. ABSENT: cyanosis, rash Results Laboratory Results: 07/04/17 04:55 07/04/17 04:55 07/04/17 07/04/17 07/04/17 04:55 04:55 04:55 WBC 13.1 H RBC 4.42 Hgb 13.1 L Hct 38.3 MCV 87 MCH 29.7 MCHC 34.2 RDW 13.2 Plt Count 308 Seg Neutrophils % 88.4 H Lymphocytes % 6.3 L Monocytes % 4.9 Eosinophils % 0.2 Basophils % 0.2 Absolute Neutrophils 11.6 H Absolute Lymphocytes 0.8 Absolute Monocytes 0.6 Absolute Eosinophils 0.0 Absolute Basophils 0.0 Sodium 133.2 L Potassium 5.2 H Chloride 99 Carbon Dioxide 25 Anion Gap 9 BUN 10 Creatinine 0.74 Est GFR ( Amer) > 60 Est GFR (Non-Af Amer) > 60 Glucose 602 H* Lactic Acid 1.0 Calcium 8.8 Free T4 07/04/17 04:55 WBC RBC Hgb Hct MCV MCH MCHC RDW Plt Count Seg Neutrophils % Lymphocytes % Monocytes % Eosinophils % Basophils % Absolute Neutrophils Absolute Lymphocytes Absolute Monocytes Absolute Eosinophils Absolute Basophils Sodium Potassium Chloride Carbon Dioxide Anion Gap BUN Creatinine Est GFR ( Amer) Est GFR (Non-Af Amer) Glucose Lactic Acid Calcium Free T4 1.21 Impressions: Chest X-Ray 07/03/17 00:00 IMPRESSION: No acute radiographic finding in the chest. Status: Imported from PACS Assessment & Plan - Diagnosis (1) Diabetes 1.5, managed as type 1 Is this a current diagnosis for this admission?: Yes Plan: We will resume patient's home Lantus as a divided dose. Continue before meals insulin. Continue metformin Anticipate that this will improve as his infection is under better control. 07/04/17 07/04/17 07/04/17 04:55 07:18 09:40 Glucose 602 H* POC Glucose 506 H* 318 H 07/04/17 11:09 Glucose POC Glucose 197 H 10/07/16 09:40 Hemoglobin A1c % 12.9 H Last A1c was 12.9. Patient reports that his family does not provide diabetic friendly foods for the home. I have encouraged him to be compliant with this and will consult the certified executive chef and dietitian for him. Follow along with patient's blood sugar (2) Sepsis Qualifiers: Sepsis type: sepsis due to unspecified organism Qualified Code(s): A41.9 - Sepsis, unspecified organism Is this a current diagnosis for this admission?: Yes Plan: Patient with sepsis secondary to scrotal cellulitis/perianal abscess. 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 Defer to urology and surgical service for definitive management of this including antibiotic selection. Patient currently on Zosyn and has received 1 dose of vancomycin, 1 dose of Rocephin, and 1 dose of clindamycin. Would recommend ongoing coverage with vancomycin until culture results. (3) Umesh gangrene Is this a current diagnosis for this admission?: Yes Plan: Patient with sepsis secondary to scrotal cellulitis/perianal abscess. 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 Defer to urology and surgical service for definitive management of this including antibiotic selection. Patient currently on Zosyn and has received 1 dose of vancomycin, 1 dose of Rocephin, and 1 dose of clindamycin. Would recommend ongoing coverage with vancomycin until culture results. (4) THAD (obstructive sleep apnea) Is this a current diagnosis for this admission?: Yes Plan: Patient may use his home CPAP (5) Abscess, gluteal, left Is this a current diagnosis for this admission?: Yes (6) Cellulitis, perineum Is this a current diagnosis for this admission?: Yes (7) Tobacco abuse Is this a current diagnosis for this admission?: Yes Plan: Encourage cessation. Offered nicotine patch (8) Severe obesity (BMI 35.0-35.9 with comorbidity) Is this a current diagnosis for this admission?: Yes Plan: consult dietary - Time Time Spent: 30 to 50 Minutes Medications reviewed and adjusted accordingly: Yes
--- NOTE | 2017-07-04 18:02 | PROGRESS NOTE E ---
Progress Note NAME: GARY JARAMILLO : 1970 AGE: 47Y DATE: 07/04/2017 ROOM: 414 SUBJECTIVE: This is his first postop day post debridement and drainage of right perirectal abscess and starting Umesh gangrene. Patient was seen by urologist, Dr. Hein, and the plan is to hold off reexploration today since he is quite stable and there is no involvement of the scrotal area. However, patient may need reexploration or dressing change in the OR together with Dr. Hein. Patient feels a lot better today. He is able to sit down on his buttock this morning. LABORATORY DATA: His glucose was elevated to 602 this morning and given IV insulin by the hospitalist. His white count is 13.1. His hemoglobin is 13.1. OBJECTIVE: He has a little drainage on the dressing. PLAN: The plan is to continue IV antibiotics. To remove the packing tomorrow and reevaluate the wound. DICTATING PHYSICIAN: VELIA TROY M.D. [id number] PHY#: [id number] ID: [id number] JOB#: [id number] ACCT: [id number] cc: >
[2017-07-04] MEDS ORDERED: INSULIN GLARGINE,HUM.REC.ANLOG 1,000 UNIT/10 ML UNIT SUBCUT SCH (22:00)
[2017-07-05] MEDS: HYDROMORPHONE HCL INJ/PF 2 MG/ML AMPULE IV PRN ×3 (05:54→18:32)
[2017-07-05] MEDS: PIPERACILLIN SODIUM/TAZOBACTAM 3.375 GM in NORMAL SALINE 100 ML IV SCH ×3 (05:54→18:25)
[2017-07-05 07:07] LABS: ABSOLUTE BASOPHILS # (AUTO) 0.1 10^3/uL (0.0-0.2); ABSOLUTE EOSINOPHILS # (AUTO) 0.4 10^3/uL (0.0-0.6); ABSOLUTE LYMPHOCYTES (AUTO) 2.1 10^3/uL (0.5-4.7); ABSOLUTE MONOCYTES (AUTO) 0.7 10^3/uL (0.1-1.4); ABSOLUTE NEUT (AUTO) 5.9 10^3/uL (1.7-8.2); BASOPHILS % (AUTO) 0.9 % (0-2); EOSINOPHILS % (AUTO) 4.3 % (0-6); HEMATOCRIT 35.3 % (37.9-51.0); HEMOGLOBIN 12.2 g/dL (13.5-17.0); HGB HCT DIFFERENCE 1.3; LYMPHOCYTES % (AUTO) 22.9 % (13-45); MEAN CORPUSCULAR HEMOGLOBIN 29.7 pg (27.0-33.4); MEAN CORPUSCULAR HGB CONC 34.6 g/dL (32.0-36.0); MEAN CORPUSCULAR VOLUME 86 fl (80-97); MONOCYTES % (AUTO) 7.6 % (3-13); SEGMENTED NEUTROPHILS % (AUTO) 64.3 % (42-78); WHITE BLOOD COUNT 9.1 10^3/uL (4.0-10.5)
[2017-07-05] MEDS ORDERED: DEXTROSE 40% GEL 15 GM TUBE PO PRN ×2 (07:21)
[2017-07-05] MEDS ORDERED: GLUCAGON,HUMAN RECOMB 1 MG INJ SUBCUT PRN (07:21)
[2017-07-05] MEDS ORDERED: DEXTROSE 50%-WATER 25 GM/50 ML DISP.SYRIN IV PRN ×2 (07:21)
[2017-07-05 07:24] LABS: ANION GAP 7 (5-19); BLOOD UREA NITROGEN 10 mg/dL (7-20); CALCIUM 8.8 mg/dL (8.4-10.2); CARBON DIOXIDE 27 mmol/L (22-30); CHLORIDE 102 mmol/L (98-107); CREATININE RESULT 0.64 mg/dL (0.52-1.25); GLUCOSE 206 mg/dL (75-110); MAGNESIUM 1.7 mg/dL (1.6-2.3); SODIUM 135.8 mmol/L (137-145)
[2017-07-05] MEDS: INSULIN LISPRO 100 UNIT/ML 3 ML VIAL SUBCUT PRN ×2 (07:50→22:35)
[2017-07-05] MEDS ORDERED: INSULIN GLARGINE,HUM.REC.ANLOG 1,000 UNIT/10 ML UNIT SUBCUT SCH ×2 (08:00→18:00)
[2017-07-05] MEDS: MAGNESIUM SULFATE/D5W 1 GM/100 ML RTUPB IV SCH ×2 (08:03→13:10)
[2017-07-05] MEDS: ENOXAPARIN SODIUM INJ 40 MG/0.4 ML DISP.SYRIN SUBCUT SCH (09:40)
[2017-07-05] MEDS: METFORMIN HCL 500 MG TABLET PO SCH ×2 (09:40→17:17)
[2017-07-05] MEDS ORDERED: MIDAZOLAM 2 MG/2 ML INJ ONE (10:11)
[2017-07-05] MEDS ORDERED: HYDROMORPHONE HCL INJ/PF 2 MG/ML AMPULE ONE (10:11)
[2017-07-05] MEDS ORDERED: IBUPROFEN INJ 800 MG/8 ML VIAL IV ONE (10:12)
[2017-07-05] MEDS ORDERED: EPHEDRINE SULFATE INJ 50 MG/1 ML AMPULE ONE (10:12)
[2017-07-05] MEDS ORDERED: PROPOFOL INJ 200 MG/20 ML VIAL IV ONE (10:12)
[2017-07-05] MEDS ORDERED: ACETAMINOPHEN 100 ML IV ONE (10:12)
[2017-07-05] MEDS ORDERED: MORPHINE SULFATE 10 MG/ML INJ IV PRN (11:13)
[2017-07-05] MEDS ORDERED: FENTANYL CITRATE INJ/PF 100 MCG/2 ML AMPUL IV PRN ×3 (11:13)
[2017-07-05] MEDS ORDERED: MEPERIDINE HCL/PF INJ 25 MG/1 ML DISP.SYRIN IV PRN (11:13)
[2017-07-05] MEDS ORDERED: ONDANSETRON HCL INJ/PF 4 MG/2 ML SDV IV PRN (11:13)
[2017-07-05] MEDS ORDERED: DIPHENHYDRAMINE HCL 50 MG/ML VIAL IV PRN (11:13)
[2017-07-05] MEDS ORDERED: OXYCODONE-ACETAMINOPHEN 5-325 MG TABLET PO PRN ×2 (11:13)
[2017-07-05] MEDS ORDERED: PROMETHAZINE HCL INJ 25 MG/1 ML VIAL IV PRN ×2 (11:13)
--- NOTE | 2017-07-05 11:53 | Operative Report ---
Operative Report DATE OF SURGERY: 07/05/17 PREOPERATIVE DIAGNOSIS: Deep soft tissue infection of the perineum with persisting sepsis left base of scrotum POSTOPERATIVE DIAGNOSIS: Same with limited internal septic focus base of left scrotum; no evidence of fasciitis Mark no evidence of gangrene. OPERATION: 1. Baumann catheter insertion. 2. Left subclavian triple-lumen central venous access catheter insertion. 3. Irrigation washed out with Pulsavac previous perineal wound; additional excisional debridement of left base of scrotum wound, irrigation and packing of all wounds. SURGEON: DERRICK CORONEL 1ST PRINTED CIRCUIT BOARD DESIGNER: BOB DOWNEY II ANESTHESIA: GA TISSUE REMOVED OR ALTERED: see below COMPLICATIONS: none ESTIMATED BLOOD LOSS: minimal INTRAOPERATIVE FINDINGS: see below PROCEDURE: Patient was taken to the preop holding area the main operating room where general anesthesia was induced. Left neck chest wall were shaved of hair, prepped and draped sterile fashion. Surgical plan surgical timeout were conducted. Using Seldinger technique, a triple-lumen central venous access catheter study in the left subclavian vein without difficulty. There is excellent blood flow through all 3 lm. Catheter was flushed with heparinized saline secured to the skin with 2-0 silk suture Biopatch sterile dressing applied Patient was then placed in stirrups with a deep lithotomy. A Baumann catheter was inserted uneventfully. Clear yellow urine return. Previous packing from the large excisional debridement site from the perianal tissue to the lower perineal area was removed. The area was prepped and draped in a sterile fashion. Another timeout was conducted. Findings were significant for the previous open wound which is beginning to granulate in. There was no foul smell tissue gas or very much. Discharge. However cephalad to this area at the base of the left scrotum was an area of purulent discharge. This was opened in excisional fashion with #10 blade ellipsing a 2 x 2" section of tissue. It did not dissected very far under the skin flaps. This pocket of septic pus did not communicate with the large, initial operative site. We now pulse lavaged all this area with 4 L of saline. Present at this operation was Dr. Downey, urologist, who explore the areas digitally with Dr. Coronel and found no evidence of tracking of infection into the scrotum per se. Only minimal bogginess to the scrotum. No tracking traction into the thighs. Again there was no evidence of fasciitis so therefore this did not appear to be consistent with necrotizing fasciitis. Furthermore there was no evidence of young gangrene of the tissues and the fact that the tissue side of the initial debridement wound was starting to granulate so therefore the definition of Umesh's gangrene was not met. After irrigating of these 2 wounds out thoroughly, there are packed with iodoform soaked Kerlix, the patient was taken out of lithotomy position, extubated and taken to recovery room in stable condition. Plans would be for wound check tomorrow possible take back to the OR possible consideration for hyperbaric oxygen therapy. Portable upright chest x-ray pending time dictation.
[2017-07-05] MEDS: FENTANYL CITRATE INJ/PF 100 MCG/2 ML AMPUL ONE ×2 (12:00→12:05)
--- NOTE | 2017-07-05 12:36 | RADIOLOGY REPORT (SQ) ---
EXAM DESCRIPTION: CHEST SINGLE VIEW COMPLETED DATE/TIME: 07/05/2017 12:15 pm REASON FOR STUDY: s/p left SC line COMPARISON: 07/04/2017 EXAM PARAMETERS: NUMBER OF VIEWS: One view. TECHNIQUE: Single frontal radiographic view of the chest acquired. RADIATION DOSE: NA LIMITATIONS: None. FINDINGS: LUNGS AND PLEURA: No opacities, masses or pneumothorax. No pleural effusion. MEDIASTINUM AND HILAR STRUCTURES: No masses. Contour normal. HEART AND VASCULAR STRUCTURES: Heart normal in size. Normal vasculature. BONES: No acute findings. HARDWARE: Low central venous catheter terminates within the lower SVC. OTHER: No other significant finding. IMPRESSION: SATISFACTORY PLACEMENT LEFT CENTRAL VENOUS CATHETER WITHOUT COMPLICATION. OTHERWISE STA BLE APPEARANCE OF THE CHEST. TECHNICAL DOCUMENTATION: JOB ID: [id number]
[2017-07-05] MEDS ORDERED: SUCCINYLCHOLINE CHLORIDE INJ 200 MG/10 ML VIAL ONE (13:35)
[2017-07-05] MEDS ORDERED: ONDANSETRON HCL INJ/PF 4 MG/2 ML SDV ONE (13:35)
[2017-07-05] MEDS ORDERED: LIDOCAINE 2% INJ-PF (20 MG/ML) 10 ML AMPUL ONE (13:35)
[2017-07-05] MEDS ORDERED: METOCLOPRAMIDE HCL INJ/PF 10 MG/2 ML SDV ONE (13:35)
[2017-07-05] MEDS ORDERED: DEXAMETHASONE SOD PHOSPHATE INJ 4 MG/1 ML VIAL ONE (13:35)
[2017-07-05] MEDS: LACTOBACILLUS ACIDOPHILUS 250 MG TAB PO SCH ×2 (14:01→17:17)
[2017-07-05] MEDS: NICOTINE 21 MG/24 HR PATCH.TD24 TD SCH (14:02)
[2017-07-05] MEDS ORDERED: VANCOMYCIN HCL 0 MG in DEXTROSE 5%-WATER 250 ML IV NR (14:15)
[2017-07-05] MEDS ORDERED: VANCOMYCIN HCL 1,500 MG in DEXTROSE 5%-WATER 250 ML IV ONE (15:00)
--- NOTE | 2017-07-05 16:05 | PDOC PROGRESS REPORT ---
Subjective Progress Note for:: 07/05/17 Subjective:: Patient seen later today on rounds. present at bedside. Patient reports he is feeling improved from this morning, "like someone flipped a switch". Patient denies chest pain, shortness of breath, abdominal pain, nausea, vomiting , fevers, chills, diarrhea, constipation, headache, new onset weakness. Physical Exam Vital Signs: Temp Pulse Resp BP Pulse Ox 98.3 F 78 17 126/69 H 96 07/04/17 19:00 07/04/17 19:00 07/04/17 19:00 07/04/17 19:00 07/04/17 19:00 Intake & Output 07/04/17 07/05/17 07/06/17 06:59 06:59 06:59 Intake Total 1400 2713 Output Total 400 Balance 1400 2313 Weight 123.3 kg Exam: General: Awake alert and oriented x3, no acute respiratory distress HEENT: AT/NC, PERRL, EOMI, oropharynx is moist, pink, no scleral icterus, no conjunctival injection Neck: No JVD, trachea midline Chest: Clear to auscultation bilaterally, no wheezes rhonchi or rales CV: Regular rate and rhythm, normal S1 and S2, no murmur, rub, or gallop Abdomen: Soft, nontender to palpation, nondistended, active bowel sounds; no rebound, rigidity, or guarding ; deferred to primary team Extremities: No cyanosis, clubbing or edema Neuro: Cranial nerves II through XII are grossly intact without focal deficits; awake alert and oriented x3 Psych: Normal mood and affect Results Laboratory Results: 07/05/17 06:58 07/05/17 06:58 07/04/17 07/05/17 07/05/17 04:55 06:58 06:58 WBC 9.1 RBC 4.10 L Hgb 12.2 L Hct 35.3 L MCV 86 MCH 29.7 MCHC 34.6 RDW 13.0 Plt Count 310 Seg Neutrophils % 64.3 Lymphocytes % 22.9 Monocytes % 7.6 Eosinophils % 4.3 Basophils % 0.9 Absolute Neutrophils 5.9 Absolute Lymphocytes 2.1 Absolute Monocytes 0.7 Absolute Eosinophils 0.4 Absolute Basophils 0.1 Sodium 135.8 L Potassium 4.0 Chloride 102 Carbon Dioxide 27 Anion Gap 7 BUN 10 Creatinine 0.64 Est GFR ( Amer) > 60 Est GFR (Non-Af Amer) > 60 Glucose 206 H Calcium 8.8 Magnesium 1.7 Free T4 1.21 Impressions: Chest X-Ray 07/03/17 00:00 IMPRESSION: No acute radiographic finding in the chest. Assessment & Plan - Diagnosis (1) Diabetes 1.5, managed as type 1 Is this a current diagnosis for this admission?: Yes Plan: Increase lantus to 35units SQ bid. Continue before meals insulin. Continue metformin. Add glipizide bid. Anticipate that this will improve as his infection is under better control. 07/04/17 07/04/17 07/04/17 07:18 09:40 11:09 Glucose POC Glucose 506 H* 318 H 197 H 07/04/17 07/04/17 07/05/17 16:32 21:04 06:32 Glucose POC Glucose 124 H 225 H 223 H 07/05/17 06:58 Glucose 206 H POC Glucose 10/07/16 09:40 Hemoglobin A1c % 12.9 H Last A1c was 12.9. Patient reports that his family does not provide diabetic friendly foods for the home. I have discussed diet and risks with both him and his . I have encouraged him to be compliant with this and will consult the veneer sample maker and dietitian for him. Follow along with patient's blood sugar (2) Necrotizing fasciitis Is this a current diagnosis for this admission?: Yes Plan: Have added both vancomycin and clindamycin as patient is growing a gram- positive cocci in addition to group B Streptococcus. Continue with Zosyn. Patient is improved significantly after repeat debridement and surgery by the primary team. For this problem, we defer to the primary team and all aspects. (3) Sepsis Qualifiers: Sepsis type: Streptococcus group B Qualified Code(s): A40.1 - Sepsis due to streptococcus, group B Is this a current diagnosis for this admission?: Yes Plan: Secondary to above (4) THAD (obstructive sleep apnea) Is this a current diagnosis for this admission?: Yes Plan: Patient may use his home CPAP (5) Abscess, gluteal, left Is this a current diagnosis for this admission?: Yes (6) Cellulitis, perineum Is this a current diagnosis for this admission?: Yes (7) Tobacco abuse Is this a current diagnosis for this admission?: Yes Plan: Encourage cessation. Offered nicotine patch (8) Severe obesity (BMI 35.0-35.9 with comorbidity) Is this a current diagnosis for this admission?: Yes Plan: consult dietary - Time Time Spent with patient: 25-34 minutes Medications reviewed and adjusted accordingly: Yes
[2017-07-05] MEDS ORDERED: INSULIN LISPRO 100 UNIT/ML 3 ML VIAL SUBCUT ONE (17:00)
[2017-07-05] MEDS: INSULIN GLARGINE,HUM.REC.ANLOG 1,000 UNIT/10 ML UNIT SUBCUT SCH (17:14)
[2017-07-05] MEDS: DOCUSATE SODIUM 100 MG CAPSULE PO SCH (17:16)
[2017-07-05] MEDS: CLINDAMYCIN 900 MG/D5W RTU 50 ML IV SCH (17:19)
[2017-07-05] MEDS: OXYCODONE-ACETAMINOPHEN 5-325 MG TABLET PO PRN (19:33)
[2017-07-05] MEDS ORDERED: VANCOMYCIN HCL INJ 500 MG VIAL ONE (21:41)
[2017-07-05] MEDS ORDERED: VANCOMYCIN HCL INJ 1000 MG VIAL ONE (21:41)
[2017-07-05] MEDS ORDERED: VANCOMYCIN HCL INJ 1000 MG VIAL IV PRN (22:17)
[2017-07-05] MEDS: NORMAL SALINE INJ/PF 0.9% 10 ML SDV IV PRN (22:35)
[2017-07-05] MEDS: VANCOMYCIN HCL INJ 1000 MG VIAL IV PRN (22:35)
[2017-07-05] MEDS: VANCOMYCIN HCL 1,500 MG in DEXTROSE 5%-WATER 250 ML IV SCH (22:49)
[2017-07-06] MEDS: PIPERACILLIN SODIUM/TAZOBACTAM 3.375 GM in NORMAL SALINE 100 ML IV SCH ×5 (00:09→23:54)
[2017-07-06] MEDS: CLINDAMYCIN 900 MG/D5W RTU 50 ML IV SCH ×3 (01:31→17:34)
[2017-07-06] MEDS: VANCOMYCIN HCL INJ 1000 MG VIAL IV PRN (05:05)
[2017-07-06] MEDS: VANCOMYCIN HCL 1,500 MG in DEXTROSE 5%-WATER 250 ML IV SCH ×3 (05:06→22:16)
[2017-07-06] MEDS: HYDROMORPHONE HCL INJ/PF 2 MG/ML AMPULE IV PRN ×4 (05:07→20:10)
[2017-07-06] MEDS: NORMAL SALINE INJ/PF 0.9% 10 ML SDV IV PRN ×2 (06:27→22:16)
[2017-07-06] MEDS: METFORMIN HCL 500 MG TABLET PO SCH ×2 (09:13→17:35)
[2017-07-06] MEDS: LACTOBACILLUS ACIDOPHILUS 250 MG TAB PO SCH ×2 (09:13→17:35)
[2017-07-06] MEDS: INSULIN GLARGINE,HUM.REC.ANLOG 1,000 UNIT/10 ML UNIT SUBCUT SCH ×2 (09:13→22:16)
[2017-07-06] MEDS: DOCUSATE SODIUM 100 MG CAPSULE PO SCH ×2 (09:13→17:35)
[2017-07-06] MEDS: ENOXAPARIN SODIUM INJ 40 MG/0.4 ML DISP.SYRIN SUBCUT SCH (09:14)
--- NOTE | 2017-07-06 12:40 | PDOC PROGRESS REPORT ---
Subjective Progress Note for:: 07/06/17 Subjective:: Pt states that he is doing ok. Nursing states that pt did not get insulin prior to surgery and blood glucose was 400. Nursing states that pt is scheduled for surgery today. Physical Exam Vital Signs: Temp Pulse Resp BP Pulse Ox 98.3 F 83 18 132/67 H 98 07/06/17 10:45 07/06/17 10:45 07/06/17 10:45 07/06/17 10:45 07/06/17 10:45 Intake & Output 07/05/17 07/06/17 07/07/17 06:59 06:59 06:59 Intake Total 2713 27036 50 Output Total 400 6210 Balance 2313 4742 50 Weight 129.7 kg General appearance: PRESENT: no acute distress, well-developed, well-nourished Head exam: PRESENT: atraumatic, normocephalic Eye exam: PRESENT: conjunctiva pink, EOMI, PERRLA. ABSENT: scleral icterus Ear exam: PRESENT: normal external ear exam Mouth exam: PRESENT: moist, tongue midline Neck exam: ABSENT: carotid bruit, JVD, lymphadenopathy, thyromegaly Respiratory exam: PRESENT: clear to auscultation juancho. ABSENT: rales, rhonchi, wheezes Cardiovascular exam: PRESENT: RRR. ABSENT: diastolic murmur, rubs, systolic murmur Pulses: PRESENT: normal dorsalis pedis pul Vascular exam: PRESENT: normal capillary refill GI/Abdominal exam: PRESENT: normal bowel sounds, soft. ABSENT: distended, guarding, mass, organolmegaly, rebound, tenderness Rectal exam: PRESENT: deferred Extremities exam: PRESENT: full ROM. ABSENT: calf tenderness, clubbing, pedal edema Neurological exam: PRESENT: alert, awake, oriented to person, oriented to place , oriented to time, oriented to situation, CN II-XII grossly intact. ABSENT: motor sensory deficit Psychiatric exam: PRESENT: appropriate affect, normal mood. ABSENT: homicidal ideation, suicidal ideation Skin exam: PRESENT: dry, intact, warm. ABSENT: cyanosis, rash Results Laboratory Results: 07/05/17 06:58 07/05/17 06:58 Impressions: Chest X-Ray 07/05/17 11:33 IMPRESSION: SATISFACTORY PLACEMENT LEFT CENTRAL VENOUS CATHETER WITHOUT COMPLICATION. OTHERWISE STABLE APPEARANCE OF THE CHEST. Assessment & Plan - Diagnosis (1) DM type 2 (diabetes mellitus, type 2) Qualifiers: Diabetes mellitus complication status: with skin complications Diabetes mellitus complication detail: with other skin ulcer Diabetes mellitus intermediate frame tender insulin use: with assisted use Qualified Code(s): E11.622 - Type 2 diabetes mellitus with other skin ulcer; Z79.4 - rat exterminator (current) use of insulin Is this a current diagnosis for this admission?: Yes Plan: Will continue treatment. Will make adjustments tomorrow. (2) Abscess, gluteal, left Is this a current diagnosis for this admission?: Yes Plan: Surgery planning to do I and D today. Will continue antibiotic. (3) Sepsis Qualifiers: Sepsis type: Streptococcus group B Qualified Code(s): A40.1 - Sepsis due to streptococcus, group B Is this a current diagnosis for this admission?: Yes (4) Cellulitis, perineum Is this a current diagnosis for this admission?: Yes Plan: S/P Excisional Debridement of Left base of Scrotum: Wound cultures Group B Strep and Gram Positive Cocci in Clusters. Will continue current antibiotics. (5) Necrotizing fasciitis Is this a current diagnosis for this admission?: Yes Plan: Per Surgery. Will continue Antibiotics. (6) THAD (obstructive sleep apnea) Is this a current diagnosis for this admission?: Yes Plan: CPAP (7) Severe obesity (BMI 35.0-35.9 with comorbidity) Is this a current diagnosis for this admission?: Yes Plan: Encouraged dietary changes. (8) Tobacco abuse Is this a current diagnosis for this admission?: Yes Plan: Encouraged pt to stop smoking.
[2017-07-06] MEDS ORDERED: ONDANSETRON HCL INJ/PF 4 MG/2 ML SDV ONE (12:54)
[2017-07-06] MEDS ORDERED: FENTANYL CITRATE INJ/PF 250 MCG/5 ML AMPULE ONE (12:54)
[2017-07-06] MEDS ORDERED: MIDAZOLAM 2 MG/2 ML INJ ONE (12:54)
[2017-07-06] MEDS ORDERED: PROPOFOL INJ 200 MG/20 ML VIAL IV ONE (12:55)
[2017-07-06] MEDS ORDERED: DIPHENHYDRAMINE HCL 50 MG/ML VIAL IV PRN (13:31)
[2017-07-06] MEDS ORDERED: PROMETHAZINE HCL INJ 25 MG/1 ML VIAL IV PRN (13:31)
[2017-07-06] MEDS ORDERED: FENTANYL CITRATE INJ/PF 100 MCG/2 ML AMPUL IV PRN ×3 (13:31)
[2017-07-06] MEDS ORDERED: MEPERIDINE HCL/PF INJ 25 MG/1 ML DISP.SYRIN IV PRN (13:31)
[2017-07-06] MEDS ORDERED: MORPHINE SULFATE 10 MG/ML INJ IV PRN (13:31)
[2017-07-06] MEDS ORDERED: SUCCINYLCHOLINE CHLORIDE INJ 200 MG/10 ML VIAL ONE (13:39)
[2017-07-06] MEDS: FENTANYL CITRATE INJ/PF 100 MCG/2 ML AMPUL ONE ×2 (14:33→14:39)
[2017-07-06] MEDS ORDERED: MORPHINE SULFATE 10 MG/ML INJ ONE (14:49)
[2017-07-06] MEDS: NICOTINE 21 MG/24 HR PATCH.TD24 TD SCH (16:16)
[2017-07-06 16:27] LABS: CREATININE RESULT 0.68 mg/dL (0.52-1.25)
--- NOTE | 2017-07-06 18:22 | OPERATIVE REPORT E ---
Operative Report NAME: GARY JARAMILLO : 1970 AGE: 47Y DATE OF SURGERY: 07/06/2017 ROOM: 414 PREOPERATIVE DIAGNOSIS: POST INCISION AND DRAINAGE AND DEBRIDEMENT OF LEFT PERIANAL AND LEFT PERISCROTAL ABSCESSES. POSTOPERATIVE DIAGNOSES: 1. POST INCISION AND DRAINAGE AND DEBRIDEMENT OF LEFT PERIANAL AND LEFT PERISCROTAL ABSCESSES. 2. SOME NECROTIC TISSUE ON FOUR AREAS OF THE INCISION AND DRAINAGE SITE. OPERATION: Debridement of left perirectal ulcerations and left periscrotal areas. SURGEON: VELIA TROY MD and BOB DOWNEY MD. ANESTHESIA: General. TISSUE REMOVED OR ALTERED: INDICATIONS: This is a 47-year-old diabetic with an abscess initially drained in the emergency room about a week ago. Patient was then admitted four days ago and subsequently drained further in the OR. Third exploration and debridement and I and D done by Dr. Coronel on 07/05/17. Today, patient for second look and further debridement of necrotic areas. PROCEDURE: After adequate general anesthesia, patient was placed in lithotomy position and the perianal and perineal areas were then prepped and draped in the usual sterile fashion. An appropriate timeout was performed. Next, Dr. Downey palpated the two areas towards the scrotum and one from the left periscrotal area and noted them to be no pus. Following this, these areas were then pulse lavaged for at least a liter of saline. Following this, further evaluation of the areas was then performed with the help of Dr. Downey. There was some necrotic tissue in the two areas towards the left and right scrotum but did not really go up into the scrotal area. There was some necrotic tissue that was debrided sharply. Next, further exploration towards the left lateral side towards the gluteal areas was then performed with the use of [employer] retractors. Again, there was a considerable amount of necrotic tissue which was all sharply debrided. Next, a couple of bands were then divided with the use of electrocautery and this brought us further to sort of a tunneling towards the distal part and inferior to the initial incision. Again, there was a considerable amount of necrotic tissue that, again, was sharply debrided. Following this, the wounds were then irrigated with pulse lavage using 3 L of saline. Following this, all the areas were then packed with two bottles of half-inch Iodoform gauze and a half-bottle of 1/4-inch gauze on the left separate periscrotal incision. Sterile dressings placed over the operative site. Needle, instrument, and sponge counts were all correct and estimated blood loss about 20 mL. Patient tolerated the procedure well. Patient was then brought to the recovery room in satisfactory condition after Dr. Downey pulled out the Baumann catheter just before waking him up in the OR. DICTATING PHYSICIAN: VELIA TROY M.D. [id number] PHY#: [id number] ID: [id number] JOB#: [id number] ACCT: [id number] cc:VELIA TROY M.D. >
[2017-07-07] MEDS: CLINDAMYCIN 900 MG/D5W RTU 50 ML IV SCH ×3 (01:27→17:36)
[2017-07-07] MEDS: HYDROMORPHONE HCL INJ/PF 2 MG/ML AMPULE IV PRN ×6 (02:32→21:32)
[2017-07-07] MEDS: OXYCODONE-ACETAMINOPHEN 5-325 MG TABLET PO PRN (04:30)
[2017-07-07] MEDS: VANCOMYCIN HCL 1,500 MG in DEXTROSE 5%-WATER 250 ML IV SCH ×3 (05:08→21:32)
[2017-07-07] MEDS: NORMAL SALINE INJ/PF 0.9% 10 ML SDV IV PRN ×2 (06:31→17:37)
[2017-07-07] MEDS: PIPERACILLIN SODIUM/TAZOBACTAM 3.375 GM in NORMAL SALINE 100 ML IV SCH ×4 (06:31→23:21)
[2017-07-07] MEDS: INSULIN GLARGINE,HUM.REC.ANLOG 1,000 UNIT/10 ML UNIT SUBCUT SCH ×2 (10:34→23:21)
[2017-07-07] MEDS: ENOXAPARIN SODIUM INJ 40 MG/0.4 ML DISP.SYRIN SUBCUT SCH (10:38)
[2017-07-07] MEDS: INSULIN LISPRO 100 UNIT/ML 3 ML VIAL SUBCUT PRN ×3 (10:39→23:21)
[2017-07-07] MEDS: METFORMIN HCL 500 MG TABLET PO SCH ×2 (10:40→17:37)
[2017-07-07] MEDS: LACTOBACILLUS ACIDOPHILUS 250 MG TAB PO SCH ×2 (10:40→17:39)
[2017-07-07] MEDS: DOCUSATE SODIUM 100 MG CAPSULE PO SCH (10:48)
[2017-07-07] MEDS ORDERED: NICOTINE 21 MG/24 HR PATCH.TD24 TD SCH (12:00)
--- NOTE | 2017-07-07 12:17 | PROGRESS NOTE E ---
Progress Note NAME: GARY JARAMILLO : 1970 AGE: 47Y DATE: 07/07/2017 ROOM: 414 SUBJECTIVE: Patient has much less pains in the perirectal area. He had a good bowel movement. OBJECTIVE: He is afebrile with a blood pressure 113/57, heart rate of 82 per minute, respiratory rate of 18 per minute, and O2 saturation of 97% on room air. PLAN: He will probably need a final third look for his perianal and perineal abscesses tomorrow. If everything is okay by tomorrow, he could probably be discharged on Wednesday for [facility]up [facility] with possible hyperbaric treatments and also sitz baths. Arrangements will be made for hyperbaric treatment [facility]. Meantime, continue him on IV antibiotic therapy and hydration as he is going to be n.p.o. for midnight. DICTATING PHYSICIAN: VELIA TROY M.D. [id number] PHY#: [id number] ID: [id number] JOB#: [id number] ACCT: [id number] cc: >
--- NOTE | 2017-07-07 12:20 | PDOC PROGRESS REPORT ---
Subjective Progress Note for:: 07/07/17 Subjective:: Pt states that he is having diarrhea. Nursing states that he has scheduled colace. Pt states that he is going home tomorrow. Physical Exam Vital Signs: Temp Pulse Resp BP Pulse Ox 98.0 F 82 18 113/57 L 97 07/07/17 07:44 07/07/17 07:44 07/07/17 07:44 07/07/17 07:44 07/07/17 07:44 Intake & Output 07/06/17 07/07/17 07/08/17 06:59 06:59 06:59 Intake Total 24248 6290 Output Total 6210 4365 Balance 4742 1925 Weight 129.7 kg 129.8 kg General appearance: PRESENT: no acute distress, well-developed, well-nourished Head exam: PRESENT: atraumatic, normocephalic Eye exam: PRESENT: conjunctiva pink, EOMI. ABSENT: scleral icterus Ear exam: PRESENT: normal external ear exam Mouth exam: PRESENT: moist, tongue midline Neck exam: ABSENT: carotid bruit, JVD, lymphadenopathy, thyromegaly Respiratory exam: PRESENT: clear to auscultation juancho. ABSENT: rales, rhonchi, wheezes Cardiovascular exam: PRESENT: RRR. ABSENT: diastolic murmur, rubs, systolic murmur Pulses: PRESENT: normal dorsalis pedis pul Vascular exam: PRESENT: normal capillary refill GI/Abdominal exam: PRESENT: normal bowel sounds, soft. ABSENT: distended, guarding, mass, organolmegaly, rebound, tenderness Rectal exam: PRESENT: deferred Extremities exam: PRESENT: full ROM. ABSENT: calf tenderness, clubbing, pedal edema Musculoskeletal exam: PRESENT: full ROM Neurological exam: PRESENT: alert, awake, oriented to person, oriented to place , oriented to time, oriented to situation, CN II-XII grossly intact. ABSENT: motor sensory deficit Skin exam: PRESENT: dry, warm Results Laboratory Results: 07/05/17 06:58 07/06/17 15:27 07/06/17 15:27 Creatinine 0.68 Est GFR ( Amer) > 60 Est GFR (Non-Af Amer) > 60 Impressions: Chest X-Ray 07/05/17 11:33 IMPRESSION: SATISFACTORY PLACEMENT LEFT CENTRAL VENOUS CATHETER WITHOUT COMPLICATION. OTHERWISE STABLE APPEARANCE OF THE CHEST. Assessment & Plan - Diagnosis (1) DM type 2 (diabetes mellitus, type 2) Qualifiers: Diabetes mellitus complication status: with skin complications Diabetes mellitus complication detail: with other skin ulcer Diabetes mellitus penitentiary insulin use: with termination clerk use Qualified Code(s): E11.622 - Type 2 diabetes mellitus with other skin ulcer; Z79.4 - predatory animal exterminator (current) use of insulin Is this a current diagnosis for this admission?: Yes Plan: Will continue treatment. (2) Abscess, gluteal, left Is this a current diagnosis for this admission?: Yes Plan: Will continue current ABX. (3) Sepsis Qualifiers: Sepsis type: Streptococcus group B Qualified Code(s): A40.1 - Sepsis due to streptococcus, group B Is this a current diagnosis for this admission?: Yes Plan: Secondary to Persistent left base of Scrotum Cellulitis and Left Perianal Abscess S/P Incision and drainage: Will continue current abx. (4) Cellulitis, perineum Is this a current diagnosis for this admission?: Yes Plan: S/P Excisional Debridement of Left base of Scrotum and left Perianal Abscess : Wound cultures Group B Strep, Strep Anginosus, and Gram Positive Cocci in Clusters. Will continue current antibiotics. (5) Necrotizing fasciitis Is this a current diagnosis for this admission?: Yes Plan: Per Surgery. Will continue Antibiotics. (6) THAD (obstructive sleep apnea) Is this a current diagnosis for this admission?: Yes Plan: CPAP (7) Severe obesity (BMI 35.0-35.9 with comorbidity) Is this a current diagnosis for this admission?: Yes Plan: Recommend dietary changes. (8) Tobacco abuse Is this a current diagnosis for this admission?: Yes Plan: Encouraged pt to stop smoking. - Time Time Spent with patient: 15-24 minutes
[2017-07-07 16:07] LABS: CREATININE RESULT 1.22 mg/dL (0.52-1.25)
[2017-07-07] MEDS: NICOTINE 21 MG/24 HR PATCH.TD24 TD SCH (17:40)
[2017-07-08] MEDS: HYDROMORPHONE HCL INJ/PF 2 MG/ML AMPULE IV PRN ×6 (00:46→21:48)
[2017-07-08] MEDS: CLINDAMYCIN 900 MG/D5W RTU 50 ML IV SCH ×3 (00:46→17:35)
[2017-07-08] MEDS: PIPERACILLIN SODIUM/TAZOBACTAM 3.375 GM in NORMAL SALINE 100 ML IV SCH ×4 (05:22→23:44)
[2017-07-08] MEDS: VANCOMYCIN HCL 1,500 MG in DEXTROSE 5%-WATER 250 ML IV SCH (05:22)
[2017-07-08 06:05] LABS: ABSOLUTE EOSINOPHILS # (AUTO) 0.3 10^3/uL (0.0-0.6); ABSOLUTE LYMPHOCYTES (AUTO) 1.3 10^3/uL (0.5-4.7); ABSOLUTE MONOCYTES (AUTO) 0.8 10^3/uL (0.1-1.4); ABSOLUTE NEUT (AUTO) 5.6 10^3/uL (1.7-8.2); BASOPHILS % (AUTO) 0.4 % (0-2); EOSINOPHILS % (AUTO) 3.6 % (0-6); HEMATOCRIT 35.9 % (37.9-51.0); HEMOGLOBIN 12.1 g/dL (13.5-17.0); HGB HCT DIFFERENCE 0.4; LYMPHOCYTES % (AUTO) 16.6 % (13-45); MEAN CORPUSCULAR HEMOGLOBIN 29.2 pg (27.0-33.4); MEAN CORPUSCULAR HGB CONC 33.7 g/dL (32.0-36.0); MEAN CORPUSCULAR VOLUME 87 fl (80-97); MONOCYTES % (AUTO) 10.3 % (3-13); RED BLOOD COUNT 4.14 10^6/uL (4.35-5.55); SEGMENTED NEUTROPHILS % (AUTO) 69.1 % (42-78); WHITE BLOOD COUNT 8.1 10^3/uL (4.0-10.5)
[2017-07-08 06:13] LABS: ANION GAP 7 (5-19); BLOOD UREA NITROGEN 9 mg/dL (7-20); CALCIUM 9.5 mg/dL (8.4-10.2); CARBON DIOXIDE 30 mmol/L (22-30); CHLORIDE 106 mmol/L (98-107); CREATININE RESULT 1.32 mg/dL (0.52-1.25); GLUCOSE 100 mg/dL (75-110); POTASSIUM 4.3 mmol/L (3.6-5.0); SODIUM 143.2 mmol/L (137-145)
[2017-07-08] MEDS ORDERED: LIDOCAINE 0.5% INJ-PF (5 MG/ML) 50 ML SDV ONE (07:55)
[2017-07-08] MEDS ORDERED: MIDAZOLAM 2 MG/2 ML INJ ONE ×2 (10:47)
[2017-07-08] MEDS ORDERED: FENTANYL CITRATE INJ/PF 100 MCG/2 ML AMPUL ONE (10:47)
[2017-07-08] MEDS ORDERED: PROPOFOL INJ 200 MG/20 ML VIAL IV ONE (10:48)
--- NOTE | 2017-07-08 11:11 | PDOC PROGRESS REPORT ---
Subjective Progress Note for:: 07/08/17 Subjective:: Pt states that he is doing ok this morning. Pt states that he is having some pain but pain medication is helping. Physical Exam Vital Signs: Temp Pulse Resp BP Pulse Ox 97.9 F 83 18 123/75 97 07/08/17 08:56 07/08/17 08:56 07/08/17 08:56 07/08/17 08:56 07/08/17 08:56 Intake & Output 07/07/17 07/08/17 07/09/17 06:59 06:59 06:59 Intake Total 6290 3231 Output Total 4365 Balance 1925 3231 Weight 129.8 kg 129.8 kg General appearance: PRESENT: no acute distress, well-developed, well-nourished Head exam: PRESENT: atraumatic, normocephalic Eye exam: PRESENT: conjunctiva pink, EOMI, PERRLA. ABSENT: scleral icterus Ear exam: PRESENT: normal external ear exam Mouth exam: PRESENT: moist, tongue midline Neck exam: ABSENT: carotid bruit, JVD, lymphadenopathy, thyromegaly Respiratory exam: PRESENT: clear to auscultation juancho. ABSENT: rales, rhonchi, wheezes Cardiovascular exam: PRESENT: RRR. ABSENT: diastolic murmur, rubs, systolic murmur Pulses: PRESENT: normal dorsalis pedis pul GI/Abdominal exam: PRESENT: normal bowel sounds, soft, other - Obese. ABSENT: distended, guarding, mass, organolmegaly, rebound, tenderness Rectal exam: PRESENT: deferred Extremities exam: PRESENT: full ROM. ABSENT: calf tenderness, clubbing, pedal edema Neurological exam: PRESENT: alert, awake, oriented to person, oriented to place , oriented to time, oriented to situation, CN II-XII grossly intact. ABSENT: motor sensory deficit Psychiatric exam: PRESENT: appropriate affect, normal mood. ABSENT: homicidal ideation, suicidal ideation Skin exam: PRESENT: other - upper and lower ext warm and Results Laboratory Results: 07/08/17 05:15 07/08/17 05:15 07/07/17 07/08/17 07/08/17 14:55 05:15 05:15 WBC 8.1 RBC 4.14 L Hgb 12.1 L Hct 35.9 L MCV 87 MCH 29.2 MCHC 33.7 RDW 13.0 Plt Count 357 Seg Neutrophils % 69.1 Lymphocytes % 16.6 Monocytes % 10.3 Eosinophils % 3.6 Basophils % 0.4 Absolute Neutrophils 5.6 Absolute Lymphocytes 1.3 Absolute Monocytes 0.8 Absolute Eosinophils 0.3 Absolute Basophils 0.0 Sodium 143.2 Potassium 4.3 Chloride 106 Carbon Dioxide 30 Anion Gap 7 BUN 9 Creatinine 1.22 1.32 H Est GFR ( Amer) > 60 > 60 Est GFR (Non-Af Amer) > 60 58 L Glucose 100 Calcium 9.5 Impressions: Chest X-Ray 07/05/17 11:33 IMPRESSION: SATISFACTORY PLACEMENT LEFT CENTRAL VENOUS CATHETER WITHOUT COMPLICATION. OTHERWISE STABLE APPEARANCE OF THE CHEST. Assessment & Plan - Diagnosis (1) DM type 2 (diabetes mellitus, type 2) Qualifiers: Diabetes mellitus complication status: with skin complications Diabetes mellitus complication detail: with other skin ulcer Diabetes mellitus longitudinal float operator insulin use: with alf use Qualified Code(s): E11.622 - Type 2 diabetes mellitus with other skin ulcer; Z79.4 - exterminator helper termite (current) use of insulin Is this a current diagnosis for this admission?: Yes Plan: Will continue treatment. Will continue Zosyin and Clindamycin. (2) Acute renal injury Is this a current diagnosis for this admission?: Yes Plan: in setting of DM Type 2 Most likely Secondary to Medication: Will discontinue Vancomycin. Will continue Zosyn and Clindamycin. Will check labs in am. Will check Renal U/S. (3) Abscess, gluteal, left Is this a current diagnosis for this admission?: Yes Plan: Will continue current ABX. (4) Sepsis Qualifiers: Sepsis type: Streptococcus group B Qualified Code(s): A40.1 - Sepsis due to streptococcus, group B Is this a current diagnosis for this admission?: Yes Plan: Secondary to Persistent left base of Scrotum Cellulitis and Left Perianal Abscess S/P Incision and drainage: Will discontinue Vanco. Will continue Clindamycin and Zosyn. (5) Cellulitis, perineum Is this a current diagnosis for this admission?: Yes Plan: S/P Excisional Debridement of Left base of Scrotum and left Perianal Abscess : Wound cultures Group B Strep, Strep Anginosus, and Staphyloccus Lugdunensis. Will continue Zosyn and Clindamycin. (6) Necrotizing fasciitis Is this a current diagnosis for this admission?: Yes Plan: Per Surgery. Will continue Antibiotics. (7) THAD (obstructive sleep apnea) Is this a current diagnosis for this admission?: Yes Plan: CPAP (8) Severe obesity (BMI 35.0-35.9 with comorbidity) Is this a current diagnosis for this admission?: Yes Plan: Recommend dietary changes. (9) Tobacco abuse Is this a current diagnosis for this admission?: Yes Plan: Encouraged pt to stop smoking. - Time Time Spent with patient: 15-24 minutes
[2017-07-08] MEDS ORDERED: MEPERIDINE HCL/PF INJ 25 MG/1 ML DISP.SYRIN IV PRN (11:29)
[2017-07-08] MEDS ORDERED: PROMETHAZINE HCL INJ 25 MG/1 ML VIAL IV PRN (11:29)
[2017-07-08] MEDS ORDERED: FENTANYL CITRATE INJ/PF 100 MCG/2 ML AMPUL IV PRN ×3 (11:29)
[2017-07-08] MEDS ORDERED: MORPHINE SULFATE 10 MG/ML INJ IV PRN (11:29)
[2017-07-08] MEDS ORDERED: DIPHENHYDRAMINE HCL 50 MG/ML VIAL IV PRN (11:29)
[2017-07-08] MEDS ORDERED: HYDROMORPHONE HCL INJ/PF 2 MG/ML AMPULE ONE (11:50)
--- NOTE | 2017-07-08 12:12 | OPERATIVE REPORT E ---
Operative Report NAME: GARY JARAMILLO : 1970 AGE: 47Y DATE OF SURGERY: 07/08/2017 ROOM: 414 PREOPERATIVE DIAGNOSIS: Post I and D and debridement of left perirectal and perineal abscesses. POSTOPERATIVE DIAGNOSIS: Post I and D and debridement of left perirectal and perineal abscesses. PROCEDURE: Debridement and pulse lavage of large left perirectal and perineal abscess cavity sites, packing of abscess site with Iodoform gauze. SURGEON: VELIA TROY M.D. ANESTHESIA: General. INDICATIONS: This is the fourth trip for this patient to the OR for debridement and repacking. This is his fifth postop day from the original operation. DESCRIPTION OF PROCEDURE: After adequate IV sedation, patient was placed in lithotomy position. The perineal and perianal abscess sites were then prepped and draped in the usual sterile fashion. Exploration of the cavity abscess site showed some superficial necrosis of tissue. No definite area of collection of abscess or significant necrotic areas. The superficial necrotic or dried exudates were then shaved with scissors. The cavity was subsequently pulse irrigated with 3 L of saline solution. They were then packed with 2 bottles of half-inch Iodoform gauze and half a bottle of quarter-inch Iodoform gauze. The separate abscess cavity site in the left periscrotal area was then also packed with half a bottle of quarter-inch Iodoform gauze. Sterile dressings were then placed over the operative sites. The patient tolerated the procedure well. Estimated blood loss was about 10 mL. Patient was brought to the recovery room in satisfactory condition. DICTATING PHYSICIAN: VELIA TROY M.D. [id number] PHY#: [id number] ID: [id number] JOB#: [id number] ACCT: [id number] cc:VELIA TROY M.D. >
[2017-07-08] MEDS: ENOXAPARIN SODIUM INJ 40 MG/0.4 ML DISP.SYRIN SUBCUT SCH (12:53)
[2017-07-08] MEDS: INSULIN GLARGINE,HUM.REC.ANLOG 1,000 UNIT/10 ML UNIT SUBCUT SCH ×2 (12:53→22:46)
[2017-07-08] MEDS: LACTOBACILLUS ACIDOPHILUS 250 MG TAB PO SCH ×2 (12:53→17:37)
[2017-07-08] MEDS: METFORMIN HCL 500 MG TABLET PO SCH ×2 (12:53→17:37)
[2017-07-08] MEDS: NORMAL SALINE INJ/PF 0.9% 10 ML SDV IV PRN (14:29)
[2017-07-08] MEDS: INSULIN LISPRO 100 UNIT/ML 3 ML VIAL SUBCUT PRN (17:36)
[2017-07-08] MEDS: NICOTINE 21 MG/24 HR PATCH.TD24 TD SCH (17:36)
--- NOTE | 2017-07-09 01:09 | RADIOLOGY REPORT (SQ) ---
EXAM DESCRIPTION: U/S RETROPERITON LTD COMPLETED DATE/TIME: 07/09/2017 12:46 am REASON FOR STUDY: Acute Renal Injury COMPARISON: None. TECHNIQUE: Grayscale images acquired of the kidneys and bladder and recorded on PACS. Additional stormy ected color Doppler images recorded. LIMITATIONS: Portable technique. Patient's body habitus. FINDINGS: RIGHT KIDNEY: Measures 13.4 cm. Normal echogenicity. No hydronephrosis. No calcifica tions. LEFT KIDNEY: The left kidney was poorly visualized. Measures 12.7 cm. Normal echogenicity. No hyd ronephrosis. No calcifications. BLADDER: Distended urinary bladder. The left ureteral jet was visualized. IMPRESSION: No hydronephrosis. TECHNICAL DOCUMENTATION: JOB ID: [id number] [employer]- All Rights Reserved
[2017-07-09] MEDS: CLINDAMYCIN 900 MG/D5W RTU 50 ML IV SCH ×3 (01:23→17:37)
[2017-07-09] MEDS: HYDROMORPHONE HCL INJ/PF 2 MG/ML AMPULE IV PRN ×6 (02:11→22:49)
[2017-07-09] MEDS: PIPERACILLIN SODIUM/TAZOBACTAM 3.375 GM in NORMAL SALINE 100 ML IV SCH ×2 (05:36→13:12)
[2017-07-09 06:37] LABS: ABSOLUTE EOSINOPHILS # (AUTO) 0.3 10^3/uL (0.0-0.6); ABSOLUTE LYMPHOCYTES (AUTO) 1.1 10^3/uL (0.5-4.7); ABSOLUTE MONOCYTES (AUTO) 0.8 10^3/uL (0.1-1.4); ABSOLUTE NEUT (AUTO) 5.8 10^3/uL (1.7-8.2); BASOPHILS % (AUTO) 0.5 % (0-2); EOSINOPHILS % (AUTO) 3.7 % (0-6); HEMOGLOBIN 11.2 g/dL (13.5-17.0); HGB HCT DIFFERENCE 1.6; LYMPHOCYTES % (AUTO) 13.4 % (13-45); MEAN CORPUSCULAR HEMOGLOBIN 30.5 pg (27.0-33.4); MEAN CORPUSCULAR VOLUME 87 fl (80-97); MONOCYTES % (AUTO) 9.4 % (3-13); RED BLOOD COUNT 3.67 10^6/uL (4.35-5.55); RED CELL DISTRIBUTION WIDTH 13.1 % (11.5-14.0)
[2017-07-09 06:57] LABS: ALANINE AMINOTRANSFERASE 32 U/L (21-72); ALBUMIN 2.8 g/dL (3.5-5.0); ALKALINE PHOSPHATASE 153 U/L (38-126); ANION GAP 11 (5-19); ASPARTATE AMINO TRANSFERASE 17 U/L (17-59); BILIRUBIN,DIRECT 0.2 mg/dL (0.0-0.4); BILIRUBIN,TOTAL 0.2 mg/dL (0.2-1.3); BLOOD UREA NITROGEN 8 mg/dL (7-20); CALCIUM 9.1 mg/dL (8.4-10.2); CARBON DIOXIDE 28 mmol/L (22-30); CHLORIDE 104 mmol/L (98-107); GLUCOSE 166 mg/dL (75-110); POTASSIUM 4.1 mmol/L (3.6-5.0); SODIUM 142.6 mmol/L (137-145); TOTAL PROTEIN 5.5 g/dL (6.3-8.2)
--- NOTE | 2017-07-09 08:35 | PDOC PROGRESS REPORT ---
Subjective Progress Note for:: 07/09/17 Subjective:: Patient has no complaints other than his anxiety about going home with a large wound. Physical Exam Vital Signs: Temp Pulse Resp BP Pulse Ox 98.0 F 80 18 141/67 H 96 07/09/17 08:00 07/09/17 08:00 07/09/17 08:00 07/09/17 08:00 07/09/17 08:00 Intake & Output 07/08/17 07/09/17 07/10/17 06:59 06:59 06:59 Intake Total 3231 6170 Output Total 3010 Balance 3231 3160 Weight 129.8 kg General appearance: PRESENT: mild distress Gentrourinary exam: PRESENT: other - Patient examined while standing up. We approached the wound from the posterior side. All packing removed. No foul smell. Some seropurulent discharge minimal. There was no significant bleeding. This was poorly tolerated by the patient. Results Laboratory Results: 07/09/17 05:45 07/09/17 05:45 07/09/17 07/09/17 05:45 05:45 WBC 8.0 RBC 3.67 L Hgb 11.2 L Hct 32.0 L MCV 87 MCH 30.5 MCHC 35.0 RDW 13.1 Plt Count 334 Seg Neutrophils % 73.0 Lymphocytes % 13.4 Monocytes % 9.4 Eosinophils % 3.7 Basophils % 0.5 Absolute Neutrophils 5.8 Absolute Lymphocytes 1.1 Absolute Monocytes 0.8 Absolute Eosinophils 0.3 Absolute Basophils 0.0 Sodium 142.6 Potassium 4.1 Chloride 104 Carbon Dioxide 28 Anion Gap 11 BUN 8 Creatinine 1.30 H Est GFR ( Amer) > 60 Est GFR (Non-Af Amer) 59 L Glucose 166 H Calcium 9.1 Total Bilirubin 0.2 AST 17 ALT 32 Alkaline Phosphatase 153 H Total Protein 5.5 L Albumin 2.8 L Impressions: Chest X-Ray 07/05/17 11:33 IMPRESSION: SATISFACTORY PLACEMENT LEFT CENTRAL VENOUS CATHETER WITHOUT COMPLICATION. OTHERWISE STABLE APPEARANCE OF THE CHEST. Renal Ultrasound 07/08/17 00:00 IMPRESSION: No hydronephrosis. Assessment & Plan - Diagnosis (1) Abscess, gluteal, left Is this a current diagnosis for this admission?: Yes Plan: This is a large perineal wound now status post sequential debridements and packing with acceptable septic source control. Polymicrobial infection being treated with Zosyn and clindamycin with favorable improvement Plan: 1. Recognizing this is a large wound, with marginal pain control for the patient, I think he will need to stay with us a few more days. 2. We will get patient into the shower, washing with Hibiclens scrub brush and then repacking the wound with 1 inch iodoform packing. Orders written. 3. While hospitalized with central line, will continue IV antibiotics for another day or 2, then convert to p.o. antibiotics. 4. We will start stool softener. 5. Patient's home situation is optimal for the management of a large wound of this nature. None the less we will make sure we have discharge planning involved.
[2017-07-09] MEDS: METFORMIN HCL 500 MG TABLET PO SCH ×2 (10:20→17:30)
[2017-07-09] MEDS: DOCUSATE SODIUM 100 MG CAPSULE PO SCH ×2 (10:20→17:29)
[2017-07-09] MEDS: LACTOBACILLUS ACIDOPHILUS 250 MG TAB PO SCH ×2 (10:21→17:29)
[2017-07-09] MEDS: INSULIN GLARGINE,HUM.REC.ANLOG 1,000 UNIT/10 ML UNIT SUBCUT SCH ×2 (10:30→22:53)
[2017-07-09] MEDS: INSULIN LISPRO 100 UNIT/ML 3 ML VIAL SUBCUT PRN ×2 (13:14→17:17)
[2017-07-09] MEDS: NORMAL SALINE INJ/PF 0.9% 10 ML SDV IV PRN ×2 (13:14→14:28)
--- NOTE | 2017-07-09 15:27 | PDOC PROGRESS REPORT ---
Subjective Progress Note for:: 07/09/17 Subjective:: Pt states that he is concerned about going home. Pt states that he wound is very large. Nursing states that pt is otherwise doing well. Physical Exam Vital Signs: Temp Pulse Resp BP Pulse Ox 99.2 F 82 18 126/63 H 94 07/09/17 11:53 07/09/17 11:53 07/09/17 11:53 07/09/17 11:53 07/09/17 11:53 Intake & Output 07/08/17 07/09/17 07/10/17 06:59 06:59 06:59 Intake Total 3231 6170 Output Total 3010 Balance 3231 3160 Weight 129.8 kg General appearance: PRESENT: no acute distress, well-developed, well-nourished Head exam: PRESENT: atraumatic, normocephalic Eye exam: PRESENT: conjunctiva pink, EOMI, PERRLA. ABSENT: scleral icterus Ear exam: PRESENT: normal external ear exam Mouth exam: PRESENT: moist, tongue midline Neck exam: ABSENT: carotid bruit, JVD, lymphadenopathy, thyromegaly Respiratory exam: PRESENT: clear to auscultation juancho. ABSENT: rales, rhonchi, wheezes Cardiovascular exam: PRESENT: RRR. ABSENT: diastolic murmur, rubs, systolic murmur Pulses: PRESENT: normal dorsalis pedis pul Vascular exam: PRESENT: normal capillary refill GI/Abdominal exam: PRESENT: normal bowel sounds, soft. ABSENT: distended, guarding, mass, organolmegaly, rebound, tenderness Rectal exam: PRESENT: deferred Extremities exam: PRESENT: full ROM. ABSENT: calf tenderness, clubbing, pedal edema Neurological exam: PRESENT: alert, awake, oriented to person, oriented to place , oriented to time, oriented to situation, CN II-XII grossly intact. ABSENT: motor sensory deficit Psychiatric exam: PRESENT: appropriate affect, normal mood. ABSENT: homicidal ideation, suicidal ideation Results Laboratory Results: 07/09/17 05:45 07/09/17 05:45 07/09/17 07/09/17 05:45 05:45 WBC 8.0 RBC 3.67 L Hgb 11.2 L Hct 32.0 L MCV 87 MCH 30.5 MCHC 35.0 RDW 13.1 Plt Count 334 Seg Neutrophils % 73.0 Lymphocytes % 13.4 Monocytes % 9.4 Eosinophils % 3.7 Basophils % 0.5 Absolute Neutrophils 5.8 Absolute Lymphocytes 1.1 Absolute Monocytes 0.8 Absolute Eosinophils 0.3 Absolute Basophils 0.0 Sodium 142.6 Potassium 4.1 Chloride 104 Carbon Dioxide 28 Anion Gap 11 BUN 8 Creatinine 1.30 H Est GFR ( Amer) > 60 Est GFR (Non-Af Amer) 59 L Glucose 166 H Calcium 9.1 Total Bilirubin 0.2 AST 17 ALT 32 Alkaline Phosphatase 153 H Total Protein 5.5 L Albumin 2.8 L Impressions: Chest X-Ray 07/05/17 11:33 IMPRESSION: SATISFACTORY PLACEMENT LEFT CENTRAL VENOUS CATHETER WITHOUT COMPLICATION. OTHERWISE STABLE APPEARANCE OF THE CHEST. Renal Ultrasound 07/08/17 00:00 IMPRESSION: No hydronephrosis. Assessment & Plan - Diagnosis (1) DM type 2 (diabetes mellitus, type 2) Qualifiers: Diabetes mellitus complication status: with skin complications Diabetes mellitus complication detail: with other skin ulcer Diabetes mellitus senior living insulin use: with senior living use Qualified Code(s): E11.622 - Type 2 diabetes mellitus with other skin ulcer; Z79.4 - residential (current) use of insulin Is this a current diagnosis for this admission?: Yes Plan: Will continue treatment. Will continue Zosyin and Clindamycin. (2) Acute renal injury Is this a current diagnosis for this admission?: Yes Plan: in setting of DM Type 2 Most likely Secondary to Medication: Vancomycin discontinued. Will continue Zosyn and Clindamycin. . Renal U/S within normal limits. Will continue to monitor. (3) Abscess, gluteal, left Is this a current diagnosis for this admission?: Yes Plan: Will continue current ABX. (4) Sepsis Qualifiers: Sepsis type: Streptococcus group B Qualified Code(s): A40.1 - Sepsis due to streptococcus, group B Is this a current diagnosis for this admission?: Yes Plan: Secondary to Persistent left base of Scrotum Cellulitis and Left Perianal Abscess S/P Incision and drainage: Vanco discontinued. Will continue Clindamycin and Zosyn. (5) Cellulitis, perineum Is this a current diagnosis for this admission?: Yes Plan: S/P Excisional Debridement of Left base of Scrotum and left Perianal Abscess : Wound cultures Group B Strep, Strep Anginosus, and Staphyloccus Lugdunensis. Will continue Zosyn and Clindamycin. (6) Necrotizing fasciitis Is this a current diagnosis for this admission?: Yes Plan: Per Surgery. Will continue Antibiotics. (7) THAD (obstructive sleep apnea) Is this a current diagnosis for this admission?: Yes Plan: CPAP (8) Severe obesity (BMI 35.0-35.9 with comorbidity) Is this a current diagnosis for this admission?: Yes Plan: Recommend dietary changes. (9) Tobacco abuse Is this a current diagnosis for this admission?: Yes Plan: Encouraged pt to stop smoking. - Time Time Spent with patient: 15-24 minutes - No new changes.
[2017-07-09] MEDS: PIPERACILLIN SODIUM/TAZOBACTAM 3.375 GM in DEXTROSE 5%-WATER 100 ML IV SCH ×2 (17:28→23:51)
[2017-07-09] MEDS: NICOTINE 21 MG/24 HR PATCH.TD24 TD SCH (17:36)
[2017-07-09] MEDS: ONDANSETRON HCL INJ/PF 4 MG/2 ML SDV IV PRN (23:50)
[2017-07-10] MEDS: CLINDAMYCIN 900 MG/D5W RTU 50 ML IV SCH ×3 (03:06→18:06)
[2017-07-10] MEDS: HYDROMORPHONE HCL INJ/PF 2 MG/ML AMPULE IV PRN ×3 (03:10→15:24)
[2017-07-10] MEDS: OXYCODONE-ACETAMINOPHEN 5-325 MG TABLET PO PRN ×3 (05:08→13:22)
[2017-07-10] MEDS: PIPERACILLIN SODIUM/TAZOBACTAM 3.375 GM in DEXTROSE 5%-WATER 100 ML IV SCH (05:09)
[2017-07-10 05:50] LABS: ANION GAP 10 (5-19); BLOOD UREA NITROGEN 10 mg/dL (7-20); CALCIUM 10.1 mg/dL (8.4-10.2); CARBON DIOXIDE 29 mmol/L (22-30); CHLORIDE 103 mmol/L (98-107); CREATININE RESULT 1.43 mg/dL (0.52-1.25); GLUCOSE 182 mg/dL (75-110); POTASSIUM 4.3 mmol/L (3.6-5.0)
[2017-07-10] MEDS: METFORMIN HCL 500 MG TABLET PO SCH ×2 (09:00→18:06)
[2017-07-10] MEDS: LACTOBACILLUS ACIDOPHILUS 250 MG TAB PO SCH ×2 (09:00→18:05)
[2017-07-10] MEDS: DOCUSATE SODIUM 100 MG CAPSULE PO SCH ×2 (09:02→18:07)
[2017-07-10] MEDS: INSULIN GLARGINE,HUM.REC.ANLOG 1,000 UNIT/10 ML UNIT SUBCUT SCH (09:04)
[2017-07-10] MEDS: INSULIN LISPRO 100 UNIT/ML 3 ML VIAL SUBCUT PRN ×2 (09:05→13:26)
--- NOTE | 2017-07-10 11:33 | PDOC PROGRESS REPORT ---
Subjective Progress Note for:: 07/10/17 Subjective:: Pt states that he is doing ok today. Physical Exam Vital Signs: Temp Pulse Resp BP Pulse Ox 98.5 F 70 12 105/61 97 07/10/17 07:33 07/10/17 07:33 07/10/17 07:33 07/10/17 07:33 07/10/17 07:33 Intake & Output 07/09/17 07/10/17 07/11/17 06:59 06:59 06:59 Intake Total 6170 3000 Output Total 3010 1600 Balance 3160 1400 Weight 129.9 kg General appearance: PRESENT: no acute distress, well-developed, well-nourished, other - obese Head exam: PRESENT: atraumatic Eye exam: PRESENT: conjunctiva pink, EOMI, PERRLA. ABSENT: scleral icterus Ear exam: PRESENT: normal external ear exam Mouth exam: PRESENT: moist, tongue midline Neck exam: ABSENT: carotid bruit, JVD, lymphadenopathy, thyromegaly Respiratory exam: PRESENT: clear to auscultation juancho. ABSENT: rales, rhonchi, wheezes Pulses: PRESENT: normal dorsalis pedis pul Vascular exam: PRESENT: normal capillary refill GI/Abdominal exam: PRESENT: normal bowel sounds, soft. ABSENT: distended, guarding, mass, organolmegaly, rebound, tenderness Rectal exam: PRESENT: deferred Extremities exam: PRESENT: full ROM. ABSENT: calf tenderness, clubbing, pedal edema Neurological exam: PRESENT: alert, awake, oriented to person, oriented to place , oriented to time, oriented to situation, CN II-XII grossly intact. ABSENT: motor sensory deficit Psychiatric exam: PRESENT: appropriate affect, normal mood. ABSENT: homicidal ideation, suicidal ideation Skin exam: PRESENT: dry, warm. ABSENT: cyanosis, rash Results Laboratory Results: 07/09/17 05:45 07/10/17 05:10 07/10/17 05:10 Sodium 142.0 Potassium 4.3 Chloride 103 Carbon Dioxide 29 Anion Gap 10 BUN 10 Creatinine 1.43 H Est GFR ( Amer) > 60 Est GFR (Non-Af Amer) 53 L Glucose 182 H Calcium 10.1 Impressions: Chest X-Ray 07/05/17 11:33 IMPRESSION: SATISFACTORY PLACEMENT LEFT CENTRAL VENOUS CATHETER WITHOUT COMPLICATION. OTHERWISE STABLE APPEARANCE OF THE CHEST. Renal Ultrasound 07/08/17 00:00 IMPRESSION: No hydronephrosis. Assessment & Plan - Diagnosis (1) DM type 2 (diabetes mellitus, type 2) Qualifiers: Diabetes mellitus complication status: with skin complications Diabetes mellitus complication detail: with other skin ulcer Diabetes mellitus exterminator insulin use: with exterminator use Qualified Code(s): E11.622 - Type 2 diabetes mellitus with other skin ulcer; Z79.4 - jail (current) use of insulin Is this a current diagnosis for this admission?: Yes Plan: Will continue current regimen. If Cr 1.5 will discontinue Metformin. (2) Acute renal injury Is this a current diagnosis for this admission?: Yes Plan: in setting of DM Type 2 Most likely Secondary to Medication: Will place pt on IVF to see if renal function will improve. (3) Abscess, gluteal, left Is this a current diagnosis for this admission?: Yes Plan: Will continue current ABX. (4) Sepsis Qualifiers: Sepsis type: Streptococcus group B Qualified Code(s): A40.1 - Sepsis due to streptococcus, group B Is this a current diagnosis for this admission?: Yes Plan: Secondary to Persistent left base of Scrotum Cellulitis and Left Perianal Abscess S/P Incision and drainage: Vanco discontinued. Will continue Clindamycin and Zosyn. (5) Cellulitis, perineum Is this a current diagnosis for this admission?: Yes Plan: S/P Excisional Debridement of Left base of Scrotum and left Perianal Abscess : Wound cultures Group B Strep, Strep Anginosus, and Staphyloccus Lugdunensis. Will continue Zosyn and Clindamycin. (6) Necrotizing fasciitis Is this a current diagnosis for this admission?: Yes Plan: Per Surgery. Will continue Antibiotics. (7) THAD (obstructive sleep apnea) Is this a current diagnosis for this admission?: Yes Plan: CPAP (8) Severe obesity (BMI 35.0-35.9 with comorbidity) Is this a current diagnosis for this admission?: Yes Plan: Recommend dietary changes. (9) Tobacco abuse Is this a current diagnosis for this admission?: Yes Plan: Encouraged pt to stop smoking. - Time Time Spent with patient: 15-24 minutes
--- NOTE | 2017-07-10 12:34 | PDOC PROGRESS REPORT ---
Subjective Progress Note for:: 07/10/17 Subjective:: Patient getting about much better today. He did get in the shower after refusing to have his wound repacked after packing removed this morning Physical Exam Vital Signs: Temp Pulse Resp BP Pulse Ox 98.5 F 70 12 105/61 97 07/10/17 07:33 07/10/17 07:33 07/10/17 07:33 07/10/17 07:33 07/10/17 07:33 Intake & Output 07/09/17 07/10/17 07/11/17 06:59 06:59 06:59 Intake Total 6170 3000 Output Total 3010 1600 Balance 3160 1400 Weight 129.9 kg Results Laboratory Results: 07/09/17 05:45 07/10/17 05:10 07/10/17 05:10 Sodium 142.0 Potassium 4.3 Chloride 103 Carbon Dioxide 29 Anion Gap 10 BUN 10 Creatinine 1.43 H Est GFR ( Amer) > 60 Est GFR (Non-Af Amer) 53 L Glucose 182 H Calcium 10.1 Impressions: Chest X-Ray 07/05/17 11:33 IMPRESSION: SATISFACTORY PLACEMENT LEFT CENTRAL VENOUS CATHETER WITHOUT COMPLICATION. OTHERWISE STABLE APPEARANCE OF THE CHEST. Renal Ultrasound 07/08/17 00:00 IMPRESSION: No hydronephrosis. Assessment & Plan - Diagnosis (1) Abscess, gluteal, left Is this a current diagnosis for this admission?: Yes Plan: Patient is doing better more active and inserting self-care by getting in the shower and washing with Hibiclens scrub brushes. Plan: 1. Continue Hibiclens showers scrubs 2. We will consider transferring him over to p.o. antibiotics tomorrow and getting a with local wound care
[2017-07-10] MEDS: NORMAL SALINE INJ/PF 0.9% 10 ML SDV IV PRN (13:20)
[2017-07-10] MEDS: NORMAL SALINE 1000 ML 1,000 ML IV PRN (13:21)
[2017-07-10] MEDS: PIPERACILLIN SODIUM/TAZOBACTAM 3.375 GM in NORMAL SALINE 100 ML IV SCH (15:23)
[2017-07-10] MEDS: ONDANSETRON HCL INJ/PF 4 MG/2 ML SDV IV PRN (15:28)
[2017-07-10] MEDS: NICOTINE 21 MG/24 HR PATCH.TD24 TD SCH (18:06)
[2017-07-11] MEDS: PIPERACILLIN SODIUM/TAZOBACTAM 3.375 GM in NORMAL SALINE 100 ML IV SCH ×2 (02:30→03:44)
[2017-07-11] MEDS: CLINDAMYCIN 900 MG/D5W RTU 50 ML IV SCH (02:33)
[2017-07-11] MEDS: INSULIN GLARGINE,HUM.REC.ANLOG 1,000 UNIT/10 ML UNIT SUBCUT SCH ×3 (02:34→23:27)
[2017-07-11] MEDS ORDERED: HYDROMORPHONE HCL INJ/PF 2 MG/ML AMPULE IV PRN (03:10)
[2017-07-11] MEDS: HYDROMORPHONE HCL INJ/PF 2 MG/ML AMPULE IV PRN ×3 (03:45→18:05)
[2017-07-11 07:16] LABS: ANION GAP 9 (5-19); BLOOD UREA NITROGEN 12 mg/dL (7-20); CALCIUM 10.4 mg/dL (8.4-10.2); CARBON DIOXIDE 29 mmol/L (22-30); CHLORIDE 106 mmol/L (98-107); GLUCOSE 100 mg/dL (75-110); POTASSIUM 4.2 mmol/L (3.6-5.0); SODIUM 144.3 mmol/L (137-145)
[2017-07-11] MEDS ORDERED: PIPERACILLIN SODIUM/TAZOBACTAM 3.375 GM in DEXTROSE 5%-WATER 100 ML IV SCH (09:00)
--- NOTE | 2017-07-11 10:08 | PDOC PROGRESS REPORT ---
Subjective Progress Note for:: 07/11/17 Subjective:: No complaints. Patient remains recalcitrant about getting into the shower, and having his wound packed. Physical Exam Vital Signs: Temp Pulse Resp BP Pulse Ox 98.5 F 74 20 150/73 H 94 07/11/17 07:21 07/11/17 07:21 07/11/17 07:21 07/11/17 07:21 07/11/17 07:21 Intake & Output 07/10/17 07/11/17 07/12/17 06:59 06:59 06:59 Intake Total 3000 3913 Output Total 1600 825 Balance 1400 3088 Weight 129.9 kg 126.1 kg General appearance: PRESENT: no acute distress GI/Abdominal exam: PRESENT: other - Perineum examined. The majority of the wound is beginning to granulate in nicely. There is some fibrinous exudate but all very superficial. Surrounding skin without erythema drainage or foul smell. Results Laboratory Results: 07/09/17 05:45 07/11/17 06:40 07/11/17 06:40 Sodium 144.3 Potassium 4.2 Chloride 106 Carbon Dioxide 29 Anion Gap 9 BUN 12 Creatinine 1.50 H Est GFR ( Amer) > 60 Est GFR (Non-Af Amer) 50 L Glucose 100 Calcium 10.4 H Impressions: Chest X-Ray 07/05/17 11:33 IMPRESSION: SATISFACTORY PLACEMENT LEFT CENTRAL VENOUS CATHETER WITHOUT COMPLICATION. OTHERWISE STABLE APPEARANCE OF THE CHEST. Renal Ultrasound 07/08/17 00:00 IMPRESSION: No hydronephrosis. Assessment & Plan - Diagnosis (1) Abscess, gluteal, left Is this a current diagnosis for this admission?: Yes Plan: Status post multiple perineal debridements, making satisfactory progress, afebrile no leukocytosis and wound cleaning up satisfactorily. Plan: 1. Patient has slight rising creatinine; being followed by hospitalist service- felt secondary to nephro toxic antibiotics which have been discontinued 2. Patient can be managed from a wound standpoint on an outpatient basis, [facility]; in the interim he can go home with Hibiclens scrubs to the area. 3. Suggested we discontinue all antibiotics. He has been on IV antibiotics for 8 days, the wound is drained, sepsis source controlled and we may be putting him at risk for C. difficile infection. 4. We will transfer to the care of Dr. Hendrix, hospitalist service
[2017-07-11] MEDS: DOCUSATE SODIUM 100 MG CAPSULE PO SCH ×2 (10:50→17:48)
[2017-07-11] MEDS: LACTOBACILLUS ACIDOPHILUS 250 MG TAB PO SCH ×2 (10:51→17:51)
--- NOTE | 2017-07-11 10:52 | PDOC PROGRESS REPORT ---
Subjective Progress Note for:: 07/11/17 Subjective:: Patient states that he is doing okay. Spoke to patient's surgeon who states that wound looks good. Physical Exam Vital Signs: Temp Pulse Resp BP Pulse Ox 98.5 F 74 20 150/73 H 94 07/11/17 07:21 07/11/17 07:21 07/11/17 07:21 07/11/17 07:21 07/11/17 07:21 Intake & Output 07/10/17 07/11/17 07/12/17 06:59 06:59 06:59 Intake Total 3000 3913 Output Total 1600 825 Balance 1400 3088 Weight 129.9 kg 126.1 kg General appearance: PRESENT: no acute distress, well-developed, well-nourished Head exam: PRESENT: atraumatic, normocephalic Eye exam: PRESENT: conjunctiva pink, EOMI. ABSENT: scleral icterus Ear exam: PRESENT: normal external ear exam Mouth exam: PRESENT: moist, tongue midline Neck exam: ABSENT: carotid bruit, JVD, lymphadenopathy, thyromegaly Respiratory exam: PRESENT: clear to auscultation juancho. ABSENT: rales, rhonchi, wheezes Cardiovascular exam: PRESENT: RRR. ABSENT: diastolic murmur, rubs, systolic murmur Pulses: PRESENT: normal dorsalis pedis pul Vascular exam: PRESENT: normal capillary refill GI/Abdominal exam: PRESENT: normal bowel sounds, soft. ABSENT: distended, guarding, mass, organolmegaly, rebound, tenderness Rectal exam: PRESENT: deferred Extremities exam: PRESENT: full ROM. ABSENT: calf tenderness, clubbing, pedal edema Musculoskeletal exam: PRESENT: full ROM Neurological exam: PRESENT: alert, awake, oriented to person, oriented to place , oriented to time, oriented to situation, CN II-XII grossly intact. ABSENT: motor sensory deficit Psychiatric exam: PRESENT: appropriate affect, normal mood. ABSENT: homicidal ideation, suicidal ideation Skin exam: PRESENT: other - Patient's left gluteal wound was viewed this morning. Demonstrated great granulation tissue with no evidence of active infection. Results Laboratory Results: 07/09/17 05:45 07/11/17 06:40 07/11/17 06:40 Sodium 144.3 Potassium 4.2 Chloride 106 Carbon Dioxide 29 Anion Gap 9 BUN 12 Creatinine 1.50 H Est GFR ( Amer) > 60 Est GFR (Non-Af Amer) 50 L Glucose 100 Calcium 10.4 H Impressions: Chest X-Ray 07/05/17 11:33 IMPRESSION: SATISFACTORY PLACEMENT LEFT CENTRAL VENOUS CATHETER WITHOUT COMPLICATION. OTHERWISE STABLE APPEARANCE OF THE CHEST. Renal Ultrasound 07/08/17 00:00 IMPRESSION: No hydronephrosis. Assessment & Plan - Diagnosis (1) DM type 2 (diabetes mellitus, type 2) Qualifiers: Diabetes mellitus complication status: with skin complications Diabetes mellitus complication detail: with other skin ulcer Diabetes mellitus ad terminal makeup operator insulin use: with ad terminal makeup operator use Qualified Code(s): E11.622 - Type 2 diabetes mellitus with other skin ulcer; Z79.4 - termite exterminator (current) use of insulin Is this a current diagnosis for this admission?: Yes Plan: Will continue current regimen. We will discontinue metformin due to creatinine of 1.5. Patient's baseline creatinine is 0.8. (2) Acute renal injury Is this a current diagnosis for this admission?: Yes Plan: in setting of DM Type 2 Most likely Secondary to component of ATN most likely secondary to antibiotics: Continue IV fluids. Will discontinue metformin due to creatinine of 1.5. Will monitor patient's creatinine to make sure it does not worsen. (3) Abscess, gluteal, left Is this a current diagnosis for this admission?: Yes Plan: Wound appears healthy with good granulation tissue and no signs of active infection. Surgery as well as myself recommend discontinuing antibiotics at this time. Therefore clindamycin has been discontinued. (4) Sepsis Qualifiers: Sepsis type: Streptococcus group B Qualified Code(s): A40.1 - Sepsis due to streptococcus, group B Is this a current diagnosis for this admission?: Yes Plan: Secondary to Persistent left base of Scrotum Cellulitis and Left Perianal Abscess S/P Incision and drainage: Resolved. Patient currently off antibiotics. (5) Cellulitis, perineum Is this a current diagnosis for this admission?: Yes Plan: S/P Excisional Debridement of Left base of Scrotum and left Perianal Abscess : Wound cultures Group B Strep, Strep Anginosus, and Staphyloccus Lugdunensis. Anabiotic treatment completed. Will exercise good wound care and good hygiene. (6) Necrotizing fasciitis Is this a current diagnosis for this admission?: Yes Plan: Per Surgery. Status post debridement. Patient has completed antibiotic treatment. (7) THAD (obstructive sleep apnea) Is this a current diagnosis for this admission?: Yes Plan: CPAP (8) Severe obesity (BMI 35.0-35.9 with comorbidity) Is this a current diagnosis for this admission?: Yes Plan: Recommend dietary changes. (9) Tobacco abuse Is this a current diagnosis for this admission?: Yes Plan: Encouraged pt to stop smoking. - Time Time Spent with patient: 15-24 minutes
[2017-07-11] MEDS: ONDANSETRON HCL INJ/PF 4 MG/2 ML SDV IV PRN (11:04)
[2017-07-11 13:15] LABS: APPEARANCE,URINE CLEAR; BILIRUBIN,URINE NEGATIVE (NEGATIVE); GLUCOSE, URINE NEGATIVE (NEGATIVE); KETONES,URINE NEGATIVE (NEGATIVE); LEUKOCYTE ESTERASE,URINE NEGATIVE (NEGATIVE); NITRITE,URINE NEGATIVE (NEGATIVE); PROTEIN,URINE NEGATIVE (NEGATIVE); URINE SPECIFIC GRAVITY 1.004; UROBILINOGEN,URINE NEGATIVE mg/dL (<2.0)
[2017-07-11] MEDS: NORMAL SALINE INJ/PF 0.9% 10 ML SDV IV PRN (14:25)
[2017-07-11] MEDS: NORMAL SALINE 1000 ML 1,000 ML IV PRN (14:25)
[2017-07-11] MEDS: NICOTINE 21 MG/24 HR PATCH.TD24 TD SCH (17:51)
[2017-07-11] MEDS: INSULIN LISPRO 100 UNIT/ML 3 ML VIAL SUBCUT PRN (17:52)
[2017-07-12] MEDS: NORMAL SALINE 1000 ML 1,000 ML IV PRN ×2 (06:39→17:39)
[2017-07-12] MEDS: HYDROMORPHONE HCL INJ/PF 2 MG/ML AMPULE IV PRN ×5 (06:39→23:37)
[2017-07-12 07:02] LABS: ABSOLUTE EOSINOPHILS # (AUTO) 0.3 10^3/uL (0.0-0.6); ABSOLUTE LYMPHOCYTES (AUTO) 1.6 10^3/uL (0.5-4.7); ABSOLUTE MONOCYTES (AUTO) 0.7 10^3/uL (0.1-1.4); ABSOLUTE NEUT (AUTO) 5.3 10^3/uL (1.7-8.2); BASOPHILS % (AUTO) 0.4 % (0-2); EOSINOPHILS % (AUTO) 3.7 % (0-6); HEMATOCRIT 32.9 % (37.9-51.0); HGB HCT DIFFERENCE 0.1; LYMPHOCYTES % (AUTO) 20.2 % (13-45); MEAN CORPUSCULAR HEMOGLOBIN 29.1 pg (27.0-33.4); MEAN CORPUSCULAR HGB CONC 33.4 g/dL (32.0-36.0); MEAN CORPUSCULAR VOLUME 87 fl (80-97); MONOCYTES % (AUTO) 8.8 % (3-13); RED BLOOD COUNT 3.78 10^6/uL (4.35-5.55); RED CELL DISTRIBUTION WIDTH 13.3 % (11.5-14.0); SEGMENTED NEUTROPHILS % (AUTO) 66.9 % (42-78)
[2017-07-12 07:22] LABS: ANION GAP 10 (5-19); BLOOD UREA NITROGEN 13 mg/dL (7-20); CALCIUM 10.1 mg/dL (8.4-10.2); CARBON DIOXIDE 28 mmol/L (22-30); CHLORIDE 105 mmol/L (98-107); CREATININE RESULT 1.45 mg/dL (0.52-1.25); GLUCOSE 100 mg/dL (75-110); SODIUM 143.4 mmol/L (137-145)
[2017-07-12] MEDS: DOCUSATE SODIUM 100 MG CAPSULE PO SCH ×2 (10:25→17:35)
[2017-07-12] MEDS: INSULIN GLARGINE,HUM.REC.ANLOG 1,000 UNIT/10 ML UNIT SUBCUT SCH ×2 (10:31→22:05)
[2017-07-12] MEDS: LACTOBACILLUS ACIDOPHILUS 250 MG TAB PO SCH ×2 (10:34→17:39)
[2017-07-12] MEDS: NORMAL SALINE INJ/PF 0.9% 10 ML SDV IV PRN (14:42)
[2017-07-12] MEDS: NICOTINE 21 MG/24 HR PATCH.TD24 TD SCH (17:39)
--- NOTE | 2017-07-12 17:52 | PDOC PROGRESS REPORT ---
Subjective Progress Note for:: 07/12/17 Subjective:: Pt states that he is feeling better. Pt states that he is urinating a lot. Pt states that he is having pain with dressing changes. Physical Exam Vital Signs: Temp Pulse Resp BP Pulse Ox 98.4 F 69 18 155/81 H 100 07/12/17 15:10 07/12/17 15:10 07/12/17 15:10 07/12/17 15:10 07/12/17 15:10 Intake & Output 07/11/17 07/12/17 07/13/17 06:59 06:59 06:59 Intake Total 4693 2558 630 Output Total 825 600 Balance 3868 2558 30 Weight 126.1 kg General appearance: PRESENT: no acute distress, well-developed, well-nourished Head exam: PRESENT: atraumatic, normocephalic Eye exam: PRESENT: conjunctiva pink, EOMI. ABSENT: scleral icterus Ear exam: PRESENT: normal external ear exam Mouth exam: PRESENT: moist, tongue midline Neck exam: ABSENT: carotid bruit, JVD, lymphadenopathy, thyromegaly Respiratory exam: PRESENT: clear to auscultation juancho. ABSENT: rales, rhonchi, wheezes Cardiovascular exam: PRESENT: RRR. ABSENT: diastolic murmur, rubs, systolic murmur Pulses: PRESENT: normal dorsalis pedis pul Vascular exam: PRESENT: normal capillary refill GI/Abdominal exam: PRESENT: normal bowel sounds, soft. ABSENT: distended, guarding, mass, organolmegaly, rebound, tenderness Rectal exam: PRESENT: deferred Extremities exam: PRESENT: full ROM. ABSENT: calf tenderness, clubbing, pedal edema Neurological exam: PRESENT: alert, awake, oriented to person, oriented to place , oriented to time, oriented to situation, CN II-XII grossly intact. ABSENT: motor sensory deficit Psychiatric exam: PRESENT: appropriate affect, normal mood. ABSENT: homicidal ideation, suicidal ideation Skin exam: PRESENT: dry, intact, warm. ABSENT: cyanosis, rash Results Laboratory Results: 07/12/17 06:30 07/12/17 06:30 07/12/17 07/12/17 06:30 06:30 WBC 8.0 RBC 3.78 L Hgb 11.0 L Hct 32.9 L MCV 87 MCH 29.1 MCHC 33.4 RDW 13.3 Plt Count 351 Seg Neutrophils % 66.9 Lymphocytes % 20.2 Monocytes % 8.8 Eosinophils % 3.7 Basophils % 0.4 Absolute Neutrophils 5.3 Absolute Lymphocytes 1.6 Absolute Monocytes 0.7 Absolute Eosinophils 0.3 Absolute Basophils 0.0 Sodium 143.4 Potassium 4.0 Chloride 105 Carbon Dioxide 28 Anion Gap 10 BUN 13 Creatinine 1.45 H Est GFR ( Amer) > 60 Est GFR (Non-Af Amer) 52 L Glucose 100 Calcium 10.1 Impressions: Chest X-Ray 07/05/17 11:33 IMPRESSION: SATISFACTORY PLACEMENT LEFT CENTRAL VENOUS CATHETER WITHOUT COMPLICATION. OTHERWISE STABLE APPEARANCE OF THE CHEST. Renal Ultrasound 07/08/17 00:00 IMPRESSION: No hydronephrosis. Assessment & Plan - Diagnosis (1) DM type 2 (diabetes mellitus, type 2) Qualifiers: Diabetes mellitus complication status: with skin complications Diabetes mellitus complication detail: with other skin ulcer Diabetes mellitus alf insulin use: with terminal operations manager use Qualified Code(s): E11.622 - Type 2 diabetes mellitus with other skin ulcer; Z79.4 - senior living (current) use of insulin Is this a current diagnosis for this admission?: Yes Plan: Will continue current regimen. We will discontinue metformin due to creatinine of 1.5. Patient's baseline creatinine is 0.8. (2) Acute renal injury Is this a current diagnosis for this admission?: Yes Plan: in setting of DM Type 2 Most likely Secondary to component of ATN most likely secondary to antibiotics: Continue IV fluids. She is renal function has improved with IV fluids. We will continue IV fluids. If patient's renal function continues to improve patient could possibly be discharged home tomorrow. (3) Abscess, gluteal, left Is this a current diagnosis for this admission?: Yes Plan: Wound appears healthy with good granulation tissue and no signs of active infection. Patient has had a week of antibiotics. Surgery feels that this is sufficient for patient's wound. (4) Sepsis Qualifiers: Sepsis type: Streptococcus group B Qualified Code(s): A40.1 - Sepsis due to streptococcus, group B Is this a current diagnosis for this admission?: Yes Plan: Secondary to Persistent left base of Scrotum Cellulitis and Left Perianal Abscess S/P Incision and drainage: Resolved. Patient currently off antibiotics. (5) Cellulitis, perineum Is this a current diagnosis for this admission?: Yes Plan: S/P Excisional Debridement of Left base of Scrotum and left Perianal Abscess : Wound cultures Group B Strep, Strep Anginosus, and Staphyloccus Lugdunensis. Anabiotic treatment completed. Will exercise good wound care and good hygiene. (6) Necrotizing fasciitis Is this a current diagnosis for this admission?: Yes Plan: Per Surgery. Status post debridement. Patient has completed antibiotic treatment. (7) THAD (obstructive sleep apnea) Is this a current diagnosis for this admission?: Yes Plan: CPAP (8) Severe obesity (BMI 35.0-35.9 with comorbidity) Is this a current diagnosis for this admission?: Yes Plan: Recommend dietary changes. (9) Tobacco abuse Is this a current diagnosis for this admission?: Yes Plan: Encouraged pt to stop smoking. - Time Time Spent with patient: 15-24 minutes - If patient's renal function continues to improve tomorrow patient can be discharged home safely.
[2017-07-13] MEDS: HYDROMORPHONE HCL INJ/PF 2 MG/ML AMPULE IV PRN ×3 (04:46→14:18)
[2017-07-13] MEDS: NORMAL SALINE 1000 ML 1,000 ML IV PRN (04:47)
[2017-07-13 07:21] LABS: ANION GAP 8 (5-19); BLOOD UREA NITROGEN 15 mg/dL (7-20); CALCIUM 9.6 mg/dL (8.4-10.2); CARBON DIOXIDE 28 mmol/L (22-30); CHLORIDE 104 mmol/L (98-107); CREATININE RESULT 1.24 mg/dL (0.52-1.25); GLUCOSE 120 mg/dL (75-110); POTASSIUM 3.8 mmol/L (3.6-5.0); SODIUM 140.3 mmol/L (137-145)
[2017-07-13] MEDS: LACTOBACILLUS ACIDOPHILUS 250 MG TAB PO SCH ×2 (11:04→17:30)
[2017-07-13] MEDS: INSULIN GLARGINE,HUM.REC.ANLOG 1,000 UNIT/10 ML UNIT SUBCUT SCH (11:05)
[2017-07-13] MEDS: DOCUSATE SODIUM 100 MG CAPSULE PO SCH ×2 (11:07→17:30)
[2017-07-13 16:23] VITALS: BP 146/79
[2017-07-13] MEDS: NICOTINE 21 MG/24 HR PATCH.TD24 TD SCH (17:30)
--- NOTE | 2017-07-13 17:49 | PDOC DISCHARGE SUMMARY ---
General - Admit/Disc Date/PCP Admission Date/Primary Care Provider: 07/03/17 23:55 [facility] Discharge Date: 07/20/17 - Discharge Diagnosis (1) Sepsis Is this a current diagnosis for this admission?: Yes Summary: Present on admission manifested by leukocytosis, fever, tachycardia and evidence of infection. Resolving. (2) Abscess, gluteal, left Is this a current diagnosis for this admission?: Yes Summary: Status post debridement. His wound is doing quite well. He will follow-up at the wound care clinic. Hibiclens scrubs daily and packed the wound with iodoform gauze daily. (3) Acute renal injury Is this a current diagnosis for this admission?: Yes Summary: Likely secondary to ATN due to nephrotoxic medications. He will follow-up with the [facility] and will need a repeat chemistry panel next week (4) DM type 2 (diabetes mellitus, type 2) Is this a current diagnosis for this admission?: Yes Summary: Stable. Continue home regimen (5) Cellulitis, perineum Is this a current diagnosis for this admission?: Yes Summary: He has completed a course of antibiotic therapy. (6) Necrotizing fasciitis Is this a current diagnosis for this admission?: Yes Summary: Status post debridement. He has completed a course of antibiotic therapy. He will follow-up at the wound care clinic. (7) THAD (obstructive sleep apnea) Is this a current diagnosis for this admission?: Yes Summary: Stable (8) Severe obesity (BMI 35.0-35.9 with comorbidity) Is this a current diagnosis for this admission?: Yes Summary: Dietary discretion is advised (9) Tobacco abuse Is this a current diagnosis for this admission?: Yes Summary: The recommendation is to quit smoking. - Additional Information Resuscitation Status: Full Code Discharge Diet: As Tolerated, Diabetic Discharge Activity: Activity As Tolerated, Balance Activity w/Rest, No Driving, Slowly Increase Activity, No tub bath Home Medications: Metformin HCl [Glucophage] 1,000 mg PO BID 09/29/16 Docusate Sodium [Colace 100 mg Capsule] 100 mg PO BID #60 capsule 07/13/17 Insulin Glargine,Hum.rec.anlog [Lantus Insulin 100 Unit/1 ml 10 ml] 35 unit SUBCUT Q12 unit 07/13/17 Oxycodone HCl 5 mg PO Q6HP PRN #20 capsule 07/13/17 History of Present Illness History of Present Illness: GARY JARAMILLO JR is a 47 year old male who presented with sepsis due to a buttocks wound on the gluteal cleft Hospital Course Hospital Course: The patient is a 47-year-old male with a past medical history significant for diabetes mellitus. He has a history of congestive heart failure as well as COPD. He smokes 2-1/2 packs of cigarettes a day. He presented to the emergency room with a left perianal abscess which was initially drained in the emergency room and sent home. Unfortunately he continued to worsen and developed severe pain and swelling in the perianal area associated with fevers and he represented to the emergency room for further evaluation. He was evaluated by general surgery who admitted them to the hospital. He went to the operating room for debridement. He was placed on broad-spectrum IV antibiotics. His hospitalization was complicated by the development of acute renal failure. This was felt to be secondary to ATN due to nephrotoxic medications. During the course of this hospitalization he completed a course of IV antibiotics. His wound is doing quite well. The recommendation is to follow-up at the wound care clinic next week. He also will perform Hibiclens scrubs daily and packed the wound with iodoform gauze gauze. At this point it is felt that he can safely be discharged home. His renal function continues to improve and his creatinine on the day of discharge is 1.25. At this point maximum hospital benefits been reached patient will be discharged home today in stable condition. Did not transfer text Physical Exam Vital Signs: Temp Pulse Resp BP Pulse Ox 99.0 F 70 17 146/79 H 99 07/13/17 16:55 07/13/17 16:55 07/13/17 16:55 07/13/17 16:55 07/13/17 16:55 Intake & Output 07/12/17 07/13/17 07/14/17 06:59 06:59 06:59 Intake Total 2558 0689 930 Output Total 600 Balance 2558 9213 930 General appearance: PRESENT: no acute distress, well-developed, well-nourished Head exam: PRESENT: atraumatic, normocephalic Mouth exam: PRESENT: moist, tongue midline Neck exam: ABSENT: carotid bruit, JVD, lymphadenopathy, thyromegaly Respiratory exam: PRESENT: clear to auscultation juancho. ABSENT: rales, rhonchi, wheezes Cardiovascular exam: PRESENT: RRR. ABSENT: diastolic murmur, rubs, systolic murmur GI/Abdominal exam: PRESENT: normal bowel sounds, soft. ABSENT: distended, guarding, mass, organolmegaly, rebound, tenderness Rectal exam: PRESENT: deferred Musculoskeletal exam: PRESENT: ambulatory Neurological exam: PRESENT: alert, awake, oriented to person, oriented to place , oriented to time, oriented to situation, CN II-XII grossly intact. ABSENT: motor sensory deficit Psychiatric exam: PRESENT: appropriate affect, normal mood. ABSENT: homicidal ideation, suicidal ideation Skin exam: PRESENT: other - Hydrocodone 25 to get taken 6 hours as needed patient's wound was examined and looks clean. No evidence of infection. Results Laboratory Results: 07/12/17 06:30 07/13/17 05:45 07/13/17 05:45 Sodium 140.3 Potassium 3.8 Chloride 104 Carbon Dioxide 28 Anion Gap 8 BUN 15 Creatinine 1.24 Est GFR ( Amer) > 60 Est GFR (Non-Af Amer) > 60 Glucose 120 H Calcium 9.6 Impressions: Chest X-Ray 07/05/17 11:33 IMPRESSION: SATISFACTORY PLACEMENT LEFT CENTRAL VENOUS CATHETER WITHOUT COMPLICATION. OTHERWISE STABLE APPEARANCE OF THE CHEST. Renal Ultrasound 07/08/17 00:00 IMPRESSION: No hydronephrosis. Qualifiers P[facility]INT BEING DISCHARGED WITH ANY OF THE FOLLOWING DIAGNOSIS?: No Plan Time Spent: Greater than 30 Minutes - The patient will be discharged home with close outpatient follow-up by the wound care clinic as well as the [facility]. He is in stable condition on the day of discharge.
== END 2017-07-13 18:06 | disposition home or self-care (01) | DRG 853 ==
LOC: ER 16:43 → UNDOADMIN 19:55 → EH 19:55 → 4N 07-04 00:09 → EH 07-04 00:09
PROVIDERS: ATTEND Surgery
PROC: 0D9Q0ZZ Drainage of Anus, Open Approach (ICD-10-PCS; principal; 2017-07-03 21:30)
PROC: 0HB9XZZ Excision of Perineum Skin, External Approach (ICD-10-PCS; 2017-07-05)
PROC: 02HV33Z Insertion of Infusion Device into Superior Vena Cava, Percutaneous Approach (ICD-10-PCS; 2017-07-05)
PROC: 0HB9XZZ Excision of Perineum Skin, External Approach (ICD-10-PCS; 2017-07-06)
PROC: 0HD9XZZ Extraction of Perineum Skin, External Approach (ICD-10-PCS; 2017-07-08)
DX: A40.1 Sepsis due to streptococcus, group B (principal); M72.6 Necrotizing fasciitis; N17.0 Acute kidney failure with tubular necrosis; L02.31 Cutaneous abscess of buttock; L03.315 Cellulitis of perineum; E11.622 Type 2 diabetes mellitus with other skin ulcer; G47.33 Obstructive sleep apnea (adult) (pediatric); E66.9 Obesity, unspecified; J44.9 Chronic obstructive pulmonary disease, unspecified; I50.9 Heart failure, unspecified; Z79.84 Long term (current) use of oral hypoglycemic drugs; Z79.4 Long term (current) use of insulin; Z87.442 Personal history of urinary calculi; F17.210 Nicotine dependence, cigarettes, uncomplicated; Z68.38 Body mass index [BMI] 38.0-38.9, adult
CPT/HCPCS: 36415; 532; 71010; 76775; 80048; 80053; 80202; 81001; 82565; 82962; 83605; 83735; 84439; 85025; 87040; 87070; 87075; 87077; 87186; 87205; 902; 920; 93005; 93010; 99285; A6266; C1751; J0131; J0330; J0696; J1100; J1170; J1642; J1650; J1741; J1815; J2250; J2270; J2405; J2543; J2704; J2765; J3010; J3370; J3475; J3490; J7030; J7060; J7620

== ENCOUNTER → 2017-11-30 | Outpatient (CLI) | payer MEDICAID ==
--- NOTE | 2017-12-01 11:01 | RADIOLOGY REPORT (SQ) ---
EXAM DESCRIPTION: NM 3 PHASE BONE SCAN COMPLETED DATE/TIME: 12/01/2017 10:11 am REASON FOR STUDY: M79.605 PAIN IN LEFT LEG M79.605 PAIN IN LEFT LEG COMPARISON: Outside left tibia and fibula films 11/25/2017 RADIONUCLIDE AND DOSE: 21.3 millicuries Tc99m MDP. The route of agent administration: Intravenous. ADDITIONAL DRUGS AND DOSES: None. TECHNIQUE: Following injection of the radiopharmaceutical, serial blood flow images acquired. Equil ibrium blood pool images then acquired. Routine delayed images at 3 hours and 22 hours acquired of t he areas of clinical concern with additional focused images as needed. AREA OF INTEREST: Bilateral tibia and fibula LIMITATIONS: None. FINDINGS: VASCULAR FLOW IMAGES: On the blood flow images, very subtle asymmetric increased flow on t he right lower extremity is seen throughout the lower leg soft tissues. BLOOD POOL IMAGES: On the blood pool images, very subtle asymmetric increased blood pool activity of the right lower extremity is seen throughout the lower leg soft tissues. BONES: On the 3 hour delay images, there is linear mild increased uptake throughout the proximal 2/3 of the right anterior tibia in a characteristic distribution for haynes splints. On the 3 hour delay images, there is mildly increased uptake at the old left mid 3rd tibial fracture site. On the hour delay images, there is persistent linear mild increased uptake along the proximal 2/3 of the right anterior tibia, in a characteristic distribution 1st haynes splints. On the December 21 hour delay images, there is mildly increased uptake at the old left mid 3rd tibi al fracture site, and along the old healed proximal fibular fracture site. IMPRESSION: Increased uptake along the right proximal 2/3 of the anterior tibia, in a characteristic location for haynes splints. There is mild increased uptake at the old fracture sites along the left mid 3rd tibia and proximal fi bula. This is within range for old fractures. No focal increased uptake on all 3 phases worrisome for bone abscess COMMENT: Quality measure 147: Current bone scan is compared with any available plain radiographs, p rior bone scans, and CT/MRI. TECHNICAL DOCUMENTATION: JOB ID: [id number] [employer]- All Rights Reserved
== END ==
LOC: RAD 11:34
PROVIDERS: ATTEND Physician Assistant Surgical
DX: M79.605 Pain in left leg (principal)
CPT/HCPCS: 78315; A9561; Q9969

== ENCOUNTER 2018-01-30 22:52 | Inpatient (IN) | payer MEDICAID ==
[2018-01-30] MEDS ORDERED: MORPHINE SULFATE 10 MG/ML INJ IV ONE (23:36)
[2018-01-30] MEDS ORDERED: ONDANSETRON HCL INJ/PF 4 MG/2 ML SDV IV ONE (23:36)
[2018-01-30] MEDS ORDERED: VANCOMYCIN HCL INJ 1000 MG VIAL IV ONE (23:37)
[2018-01-30] MEDS ORDERED: PIPERACILLIN/TAZOBACTAM 4.5 GM VIAL IV ONE (23:37)
[2018-01-30] MEDS ORDERED: DIPH/PERTUSS(ACELL)/TETANUS VAC/PF 0.5 ML SYR (>=10YO) IM ONE (23:41)
--- NOTE | 2018-01-30 23:41 | ER Document Report ---
ED General - General Chief Complaint: Abscess Stated Complaint: LEFT CHEEK PAIN Time Seen by Provider: 01/30/18 23:30 Notes: Patient is a 48-year-old diabetic that comes emergency department for chief complaint of an area of infection that started on his left cheek that has spread over the past 3 days causing swelling to his left side of the face extending up to the eye, some causing swelling of the eyelids. He denies visual loss. He denies fever or chills. He is not up-to-date on his tetanus. Only other reported medical history is sleep apnea and appendectomy. TRAVEL OUTSIDE OF THE [place] IN LAST 30 DAYS: No - Related Data Allergies/Adverse Reactions: No Known Allergies Allergy (Verified 07/03/17 17:35) Past Medical History - General Information source: Patient - Social History Smoking Status: Never Smoker Drug Abuse: None Lives with: Family Family History: CAD, CVA, DM, Other - bright's disease (mom)--eventually on HD for this - Past Medical History Cardiac Medical History: Reports: Hx Congestive Heart Failure Pulmonary Medical History: Reports: Hx COPD Endocrine Medical History: Reports: Hx Diabetes Mellitus Type 2 Renal/ Medical History: Reports: Hx Kidney Stones. Denies: Hx Peritoneal Dialysis Psychiatric Medical History: Denies: Hx Depression Past Surgical History: Reports: Hx Appendectomy, Hx Orthopedic Surgery, Hx Tonsillectomy - Immunizations Hx Diphtheria, Pertussis, Tetanus Vaccination: Yes Review of Systems - Review of Systems Constitutional: No symptoms reported EENT: See HPI Cardiovascular: No symptoms reported Respiratory: No symptoms reported Gastrointestinal: No symptoms reported Genitourinary: No symptoms reported Male Genitourinary: No symptoms reported Musculoskeletal: No symptoms reported Skin: See HPI Hematologic/Lymphatic: No symptoms reported Neurological/Psychological: No symptoms reported Physical Exam - Vital signs Vitals: Temp Pulse Resp BP Pulse Ox 99.9 F 108 H 20 163/73 H 95 01/30/18 23:13 01/30/18 23:13 01/30/18 23:13 01/30/18 23:13 01/30/18 23:13 Interpretation: Normal - General General appearance: Alert, Anxious In distress: Mild - Patient alert but appears mildly uncomfortable - HEENT Head: Normocephalic, Atraumatic Eyes: Other - Eye is normal with normal pupil, normal EOMs, no chemosis, not opacified. However patient's eyelids on the left eye are swollen, patient can still open eyelids enough to see but minimally, eyelids are edematous but not indurated or significantly tender Extraocular movements intact: Yes Eyelashes: Normal Pupils: PERRL - Respiratory Respiratory status: No respiratory distress Chest status: Nontender Breath sounds: Normal Chest palpation: Normal - Cardiovascular Rhythm: Regular, Tachycardia Heart sounds: Normal auscultation, S1 appreciated, S2 appreciated Murmur: No Normal capillary refill: Yes - Abdominal Inspection: Normal Distension: No distension Bowel sounds: Normal Tenderness: Nontender Organomegaly: No organomegaly - Back Back: Normal, Nontender - Extremities General upper extremity: Normal inspection, Nontender, Normal color, Normal ROM , Normal temperature General lower extremity: Normal inspection, Nontender, Normal color, Normal ROM , Normal temperature, Normal weight bearing. No: Juanis's sign - Neurological Neuro grossly intact: Yes Cognition: Normal Orientation: AAOx4 Sabina Coma Scale Eye Opening: Spontaneous [place] Coma Scale Verbal: Oriented Sabina Coma Scale Motor: Obeys Commands Sabina Coma Scale Total: 15 Speech: Normal Motor strength normal: LUE, RUE, LLE, RLE Sensory: Normal - Psychological Associated symptoms: Normal affect, Normal mood - Skin Skin Temperature: Warm Skin Moisture: Dry Skin Color: Normal Location of irregularity: Other - There is a tender erythematous and darkened skin area over the left inferior zygomatic area, some crusted and current drainage noted, no significant induration in the area, there is erythema with tenderness that spreads from this area up towards the inferior orbit and to include the eyelids of the left side of the face. Course - Re-evaluation Re-evalutation: Patient with an area of recently drained infection in the face, this was examined and briefly explored, tiny amount of purulent material was expressed, able to see the back of the infected area with no evidence of abscess pocket at this time. Examination is consistent with cellulitis of the face, patient is tachycardic, leukocytosis noted, hyperglycemia without acidosis noted. Beginning vancomycin , Zosyn. Patient is not hypotensive, he does not have a fever, no bandemia. CT of the face with contrast performed to rule out abscess or other acute abnormality, shows facial cellulitis but no other abnormality, does not show orbital cellulitis. Patient reevaluated, he vomited, he is asking for additional medications, he is somewhat ill-appearing but still alert and oriented. He is tachycardic but not hypotensive. Called and spoke with Dr. Phillips, internal medicine, patient will be admitted to telemetry full admission. - Vital Signs Vital signs: Temp Pulse Resp BP Pulse Ox 98.0 F 108 H 18 144/81 H 95 01/31/18 03:01 01/30/18 23:13 01/31/18 04:01 01/31/18 04:01 01/31/18 04:01 - Laboratory Result Diagrams: 01/31/18 00:10 01/31/18 00:10 Laboratory results interpreted by me: 01/31/18 01/31/18 00:10 00:10 WBC 15.9 H Seg Neutrophils % 82.8 H Lymphocytes % 8.2 L Absolute Neutrophils 13.2 H Sodium 132.6 L Chloride 96 L Glucose 544 H* AST 16 L Discharge - Discharge Clinical Impression: Facial cellulitis, Tachycardia, Hyperglycemia Leukocytosis Qualifiers: Leukocytosis type: unspecified Qualified Code(s): D72.829 - Elevated white blood cell count, unspecified Condition: Stable Disposition: ADMITTED INPATIENT Admitting Provider: Hospitalist Unit Admitted: Telemetry
[2018-01-31 00:33] LABS: ABSOLUTE BASOPHILS # (AUTO) 0.1 10^3/uL (0.0-0.2); ABSOLUTE LYMPHOCYTES (AUTO) 1.3 10^3/uL (0.5-4.7); ABSOLUTE MONOCYTES (AUTO) 1.3 10^3/uL (0.1-1.4); ABSOLUTE NEUT (AUTO) 13.2 10^3/uL (1.7-8.2); BASOPHILS % (AUTO) 0.6 % (0-2); EOSINOPHILS % (AUTO) 0.2 % (0-6); HEMATOCRIT 41.5 % (37.9-51.0); HEMOGLOBIN 14.1 g/dL (13.5-17.0); LYMPHOCYTES % (AUTO) 8.2 % (13-45); MEAN CORPUSCULAR HEMOGLOBIN 29.3 pg (27.0-33.4); MEAN CORPUSCULAR HGB CONC 33.9 g/dL (32.0-36.0); MEAN CORPUSCULAR VOLUME 86 fl (80-97); MONOCYTES % (AUTO) 8.2 % (3-13); PLATELET COUNT 225 10^3/uL (150-450); RED BLOOD COUNT 4.81 10^6/uL (4.35-5.55); RED CELL DISTRIBUTION WIDTH 13.1 % (11.5-14.0); SEGMENTED NEUTROPHILS % (AUTO) 82.8 % (42-78); TOTAL CELLS COUNTED % (AUTO) 100 %; WHITE BLOOD COUNT 15.9 10^3/uL (4.0-10.5)
[2018-01-31 00:34] LABS: VENOUS BLOOD BASE EXCESS -0.2 mmol/L; VENOUS BLOOD HCO3 25.5 mmol/L (20-32); VENOUS BLOOD PCO2 44.9 mmHg (35-63); VENOUS BLOOD PH 7.37 (7.30-7.42)
[2018-01-31 00:59] LABS: ALANINE AMINOTRANSFERASE 23 U/L (21-72); ALBUMIN 3.7 g/dL (3.5-5.0); ALKALINE PHOSPHATASE 122 U/L (38-126); ANION GAP 11 (5-19); ASPARTATE AMINO TRANSFERASE 16 U/L (17-59); BILIRUBIN,DIRECT 0.3 mg/dL (0.0-0.4); BILIRUBIN,TOTAL 0.9 mg/dL (0.2-1.3); BLOOD UREA NITROGEN 18 mg/dL (7-20); CALCIUM 9.2 mg/dL (8.4-10.2); CARBON DIOXIDE 26 mmol/L (22-30); CHLORIDE 96 mmol/L (98-107); POTASSIUM 4.6 mmol/L (3.6-5.0); SODIUM 132.6 mmol/L (137-145); TOTAL PROTEIN 6.5 g/dL (6.3-8.2)
[2018-01-31 01:06] LABS: GLUCOSE 544 mg/dL (75-110)
[2018-01-31] MEDS ORDERED: NORMAL SALINE 1000 ML 1,000 ML IV ONE ×2 (01:08→02:26)
[2018-01-31] MEDS ORDERED: INSULIN REG, HUMAN 100 UNIT/ML 3 ML VIAL (PYX) SUBCUT ONE (01:09)
--- NOTE | 2018-01-31 01:53 | RADIOLOGY REPORT (SQ) ---
EXAM DESCRIPTION: CT FACIAL AREA WITH CLINICAL HISTORY: 48 years Male, extent of infection swelling; ? abscess COMPARISON: None. TECHNIQUE: IV contrast. Coronal and sagittal reformat. This exam was performed according to our departmental dose-optimization program, which includes automated exposure control, adjustment of the mA and/or kV according to patient size and/or use of iterative reconstruction technique. FINDINGS: Moderate, extensive soft tissue edema of the left paracentral face involves the left cheek and left periorbital tissues. Moderate bilateral cervical lymphadenopathy. Mild bilateral submandibular and submental lymphadenopathy. No abscess. No drainable fluid collection. Contralateral side: Small 0.3 cm lucency associated with right maxillary premolar roots with lateral cortical disruption of the maxilla. Mild right maxillary mucosal thickening. IMPRESSION: Moderate cellulitis pattern of the left paracentral face.
[2018-01-31] MEDS ORDERED: ONDANSETRON HCL INJ/PF 4 MG/2 ML SDV IV ONE (02:26)
[2018-01-31] MEDS ORDERED: OXYCODONE HCL IR 5 MG TABLET PO PRN (03:21)
[2018-01-31] MEDS ORDERED: DEXTROSE 40% GEL 15 GM TUBE PO PRN ×2 (03:24)
[2018-01-31] MEDS ORDERED: MAGNESIUM HYDROXIDE SUSP 30 ML UDCUP PO PRN (03:24)
[2018-01-31] MEDS ORDERED: IPRATROPIUM/ALBUTEROL 0.5-2.5 MG/3 ML AMPUL NEB PRN (03:24)
[2018-01-31] MEDS ORDERED: DEXTROSE 50%-WATER 25 GM/50 ML DISP.SYRIN IV PRN ×2 (03:24)
[2018-01-31] MEDS ORDERED: GLUCAGON,HUMAN RECOMB 1 MG INJ IM PRN (03:24)
[2018-01-31] MEDS ORDERED: NORMAL SALINE 1000 ML 1,000 ML IV PRN ×2 (03:30→19:08)
[2018-01-31] MEDS ORDERED: VANCOMYCIN HCL 0 MG in DEXTROSE 5%-WATER 250 ML IV NR (03:45)
[2018-01-31] MEDS ORDERED: PIPERACILLIN/TAZOBACTAM 3.375 GM VIAL IV PRN (04:48)
[2018-01-31] MEDS: HEPARIN SOD (PORCINE) 5,000 UNIT/ML 1 ML SYRINGE SUBCUT SCH ×3 (05:24→21:16)
[2018-01-31] MEDS ORDERED: PIPERACILLIN SODIUM/TAZOBACTAM 3.375 GM in NORMAL SALINE 100 ML IV SCH ×2 (06:00→12:00)
--- NOTE | 2018-01-31 06:55 | PDOC H&P ---
History of Present Illness Admission Date/PCP: 01/31/18 02:50 MYRA ELLINGTON Patient complains of: Left facial swelling and pain History of Present Illness: GARY JARAMILLO is a 48 year old male with a past medical history of tobacco dependence, insulin-dependent diabetes, recurrent abscesses, obesity and noncompliance. Patient presents with a pain and swelling to the left face he described as a pimple 3 days ago which did not improve after lancing and expressing pus. Over that time he has developed facial swelling to the eyelids. He denies use of antibiotics. In the emergency room is found to have leukocytosis and uncontrolled blood sugar in the 500s. CT is negative for periorbital cellulitis or abscess, his last A1c was 13. He started on Zosyn and vancomycin and referred to the hospitalist for admission. Past Medical History Cardiac Medical History: Reports: Congestive Heart Failure Pulmonary Medical History: Reports: Chronic Obstructive Pulmonary Disease (COPD) Endocrine Medical History: Reports: Diabetes Mellitus Type 2, Obesity Psychiatric Medical History: Reports: Tobacco Dependency Denies: Depression Hematology: Reports: None Infectious Medical History: Reports: Other Past Surgical History Past Surgical History: Reports: Appendectomy, Orthopedic Surgery, Tonsillectomy Social History Information Source: Patient, [facility] Records Lives with: Family Smoking Status: Current Every Day Smoker Frequency of Alcohol Use: Rare Hx Recreational Drug Use: No Drugs: None Hx Prescription Drug Abuse: No - Advance Directive Resuscitation Status: Full Code Family History Family History: CAD, CVA, DM, Other - bright's disease (mom)--eventually on HD for this Parental Family History Reviewed: Yes Children Family History Reviewed: Yes Sibling(s) Family History Reviewed.: Yes Medication/Allergy Home Medications: Metformin HCl [Glucophage] 1,000 mg PO BID 09/29/16 Docusate Sodium [Colace 100 mg Capsule] 100 mg PO BID #60 capsule 07/13/17 Insulin Glargine,Hum.rec.anlog [Lantus Insulin 100 Unit/1 ml 10 ml] 35 unit SUBCUT Q12 unit 07/13/17 Oxycodone HCl 5 mg PO Q6HP PRN #20 capsule 07/13/17 Allergies/Adverse Reactions: No Known Allergies Allergy (Verified 07/03/17 17:35) Review of Systems Constitutional: ABSENT: chills, fever(s), headache(s), weight gain, weight loss Eyes: ABSENT: visual disturbances Ears: ABSENT: hearing changes Cardiovascular: ABSENT: chest pain, dyspnea on exertion, edema, orthropnea, palpitations Respiratory: ABSENT: cough, hemoptysis Gastrointestinal: ABSENT: abdominal pain, constipation, diarrhea, hematemesis, hematochezia, nausea, vomiting Genitourinary: ABSENT: dysuria, hematuria Musculoskeletal: ABSENT: joint swelling Integumentary: ABSENT: rash, wounds Neurological: ABSENT: abnormal gait, abnormal speech, confusion, dizziness, focal weakness, syncope Psychiatric: ABSENT: anxiety, depression, homidical ideation, suicidal ideation Endocrine: ABSENT: cold intolerance, heat intolerance, polydipsia, polyuria Hematologic/Lymphatic: ABSENT: easy bleeding, easy bruising Physical Exam Vital Signs: Temp Pulse Resp BP Pulse Ox 98.0 F 108 H 17 140/80 H 96 01/31/18 03:01 01/30/18 23:13 01/31/18 06:00 01/31/18 05:01 01/31/18 06:00 Intake & Output 01/29/18 01/30/18 01/31/18 11:59 11:59 11:59 Output Total 700 Balance -700 General appearance: PRESENT: cooperative, disheveled, mild distress, morbidly obese Head exam: PRESENT: other Head Image: 1 - Edema and erythema, 5 mm incision with serosanguineous drainage. Eye exam: PRESENT: conjunctiva pink, EOMI, periorbital swelling, PERRLA. ABSENT : scleral icterus Ear exam: PRESENT: normal external ear exam Mouth exam: PRESENT: moist, tongue midline Neck exam: ABSENT: carotid bruit, JVD, lymphadenopathy, thyromegaly Respiratory exam: PRESENT: clear to auscultation juancho. ABSENT: rales, rhonchi, wheezes Cardiovascular exam: PRESENT: RRR. ABSENT: diastolic murmur, rubs, systolic murmur Pulses: PRESENT: normal dorsalis pedis pul Vascular exam: PRESENT: normal capillary refill GI/Abdominal exam: PRESENT: normal bowel sounds, soft. ABSENT: distended, guarding, mass, organolmegaly, rebound, tenderness Rectal exam: PRESENT: deferred Extremities exam: PRESENT: full ROM. ABSENT: calf tenderness, clubbing, pedal edema Neurological exam: PRESENT: alert, awake, oriented to person, oriented to place , oriented to time, oriented to situation, CN II-XII grossly intact. ABSENT: motor sensory deficit Psychiatric exam: PRESENT: appropriate affect, normal mood. ABSENT: homicidal ideation, suicidal ideation Skin exam: PRESENT: dry, intact, warm, other - 3 mm lesion over the zygomatic process with serosanguineous drainage. ABSENT: cyanosis, rash Results Impressions: Facial Bones CT 01/30/18 23:35 IMPRESSION: Moderate cellulitis pattern of the left paracentral face. Assessment & Plan - Diagnosis (1) Facial cellulitis Is this a current diagnosis for this admission?: Yes Plan: Telemetry floor, surgical consult, empiric antibiotics, follow-up blood culture and CBC (2) Hyperglycemia Is this a current diagnosis for this admission?: Yes Plan: Patient expresses anger towards spouse for purchasing baked goods he cannot resist. Education (3) DM type 2 (diabetes mellitus, type 2) Qualifiers: Diabetes mellitus jail insulin use: with jail use Diabetes mellitus complication status: with skin complications Diabetes mellitus complication detail: with other skin ulcer Qualified Code(s): E11.622 - Type 2 diabetes mellitus with other skin ulcer; Z79.4 - shelter (current) use of insulin Is this a current diagnosis for this admission?: Yes Plan: Long-term noncompliance. Education, long-acting insulin initiated with Humalog sliding scale - Time Time Spent: 30 to 50 Minutes - Inpatient Certification Medical Necessity: Need Close Monitoring Due to Risk of Patient Decompensation
[2018-01-31] MEDS: INSULIN LISPRO 100 UNIT/ML 3 ML VIAL SUBCUT PRN ×3 (07:35→17:32)
[2018-01-31] MEDS ORDERED: MORPHINE SULFATE 10 MG/ML INJ ONE (08:05)
[2018-01-31] MEDS: MORPHINE SULFATE 10 MG/ML INJ IV PRN ×2 (08:35→11:56)
[2018-01-31] MEDS: INSULIN GLARGINE,HUM.REC.ANLOG 1,000 UNIT/10 ML UNIT SUBCUT SCH ×2 (10:06→21:15)
[2018-01-31] MEDS: OXYCODONE HCL IR 5 MG TABLET PO PRN ×2 (10:06→19:34)
[2018-01-31] MEDS: VANCOMYCIN HCL 1,250 MG in DEXTROSE 5%-WATER 250 ML IV SCH ×2 (10:58→17:32)
--- NOTE | 2018-01-31 11:35 | PDOC CONSULTATION ---
Consultation Consult Date: 01/31/18 Consult reason:: Cellulitis left face History of Present Illness Admission Date/PCP: 01/31/18 02:50 MYRA ELLINGTON Patient complains of: Pains left side of face History of Present Illness: 48 yo diabetic pulled a hair from his left face about 5 days ago. The next day noted a small pimple like lesion of the face which gradually fot bigger and more painful. Went to ED last night and had a Ct scan of face which showed cellulitis without a drainable abscess. Past Medical History Cardiac Medical History: Reports: Congestive Heart Failure Pulmonary Medical History: Reports: Chronic Obstructive Pulmonary Disease (COPD) Endocrine Medical History: Reports: Diabetes Mellitus Type 2, Obesity Psychiatric Medical History: Reports: Tobacco Dependency Denies: Depression Hematology: Reports: None Infectious Medical History: Reports: Other Past Surgical History Past Surgical History: Reports: Appendectomy, Orthopedic Surgery, Tonsillectomy Social History Lives with: Family Smoking Status: Current Every Day Smoker Cigarettes Packs Per Day: 0.6 Frequency of Alcohol Use: Rare Hx Recreational Drug Use: No Drugs: None Hx Prescription Drug Abuse: No - Advance Directive Resuscitation Status: Full Code Family History Family History: CAD, CVA, DM, Other - bright's disease (mom)--eventually on HD for this Parental Family History Reviewed: Yes - father from a brain aneurysm and in his 60's Children Family History Reviewed: No Sibling(s) Family History Reviewed.: No Medication/Allergy Home Medications: No Home Medications 01/31/18 Allergies/Adverse Reactions: No Known Allergies Allergy (Verified 07/03/17 17:35) Review of Systems Constitutional: PRESENT: chills Eyes: PRESENT: other - lrft eye shut because of cellulitis/edema from left face cellulitis site Ears: PRESENT: other - no hearing changes Gastrointestinal: PRESENT: other - no abdominal pains Genitourinary: PRESENT: other - no dysuria Integumentary: PRESENT: erythema - left face to left eye Neurological: PRESENT: other - no seizures Physical Exam Vital Signs: Temp Pulse Resp BP Pulse Ox 98.0 F 108 H 21 H 144/89 H 95 01/31/18 03:01 01/30/18 23:13 01/31/18 11:00 01/31/18 11:00 01/31/18 11:00 Intake & Output 01/30/18 01/31/1802/01/18 06:59 06:59 06:59 Output Total 700 Balance -700 Weight 125.4 kg General appearance: PRESENT: mild distress, morbidly obese Head exam: PRESENT: atraumatic Eye exam: PRESENT: conjunctiva pink Ear exam: PRESENT: TM's normal bilaterally Neck exam: PRESENT: full ROM Respiratory exam: PRESENT: clear to auscultation juancho Cardiovascular exam: PRESENT: RRR Pulses: PRESENT: normal radial pulses Vascular exam: PRESENT: normal capillary refill GI/Abdominal exam: PRESENT: soft - non tender Rectal exam: PRESENT: deferred Extremities exam: PRESENT: full ROM Musculoskeletal exam: PRESENT: ambulatory Neurological exam: PRESENT: altered, oriented to person, oriented to place, oriented to time, oriented to situation Psychiatric exam: PRESENT: appropriate affect Skin exam: PRESENT: erythema, warm - left face to left eyelids Results Impressions: Facial Bones CT 01/30/18 23:35 IMPRESSION: Moderate cellulitis pattern of the left paracentral face. Assessment & Plan - Diagnosis (1) Facial cellulitis Is this a current diagnosis for this admission?: Yes (2) Hyperglycemia Is this a current diagnosis for this admission?: Yes (3) Diabetes 1.5, managed as type 1 Is this a current diagnosis for this admission?: Yes - Time Time Spent: 30 to 50 Minutes - Inpatient Certification Medical Necessity: Need For IV Fluids, Need for Pain Control, Need for IV Antibiotics, Need for Surgery - Plan Summary Plan Summary: Had CT scan of face showed no drainable abscess Also, pt noted to be eating when seen Keep NPO and possible drainage of developing abscess of the left face in am Continue IV antibiotic.
--- NOTE | 2018-01-31 15:37 | Progress Note ---
Provider Note Provider Note: 48-year-old gentleman with past medical history of Insulin-dependent diabetes Recurrent abscesses Obesity Tobacco dependence Noncompliance COPD CHF He presented to the emergency room with pain and swelling to the left side of his face which started with a pimple and he then developed facial swelling up to the L eyelids. In the emergency room he was found to have leukocytosis and blood sugar in the 500s. CT of the face was negative for periorbital cellulitis or abscess. The patient was started on Zosyn and vancomycin. Temperature is not recorded in the computer he still remains in the emergency room Heart rate 101 Blood pressure 143/77 Respiratory rate 17, 96% on 2 L Physical exam: Lace male, obese, lying in bed, on CPAP. He has significant edema of his left cheek extending into the left side of his neck as well as periorbital edema and erythema with tenderness. Lungs: Clear to auscultation bilaterally normal respiratory effort Cardiac: S1-S2 regular Abd: Soft, obese Plan: Per history and physical. Continue Lantus and aspart. Analgesics for facial pain Continue antibiotics. No drainable abscess seen on CT. Surgical consultation.
[2018-01-31] MEDS: PIPERACILLIN SODIUM/TAZOBACTAM 3.375 GM in NORMAL SALINE 100 ML IV SCH ×2 (16:04→21:12)
[2018-01-31] MEDS: KETOROLAC TROMETHAMINE INJ/PF 30 MG/1 ML SDV IV PRN (23:25)
[2018-02-01] MEDS: VANCOMYCIN HCL 1,250 MG in DEXTROSE 5%-WATER 250 ML IV SCH ×2 (01:05→12:24)
[2018-02-01] MEDS: PIPERACILLIN SODIUM/TAZOBACTAM 3.375 GM in NORMAL SALINE 100 ML IV SCH ×4 (02:39→21:07)
[2018-02-01] MEDS: OXYCODONE HCL IR 5 MG TABLET PO PRN (03:54)
[2018-02-01 04:37] LABS: ABSOLUTE EOSINOPHILS # (AUTO) 0.2 10^3/uL (0.0-0.6); ABSOLUTE LYMPHOCYTES (AUTO) 1.4 10^3/uL (0.5-4.7); ABSOLUTE MONOCYTES (AUTO) 1.1 10^3/uL (0.1-1.4); ABSOLUTE NEUT (AUTO) 11.3 10^3/uL (1.7-8.2); BASOPHILS % (AUTO) 0.2 % (0-2); EOSINOPHILS % (AUTO) 1.5 % (0-6); HEMATOCRIT 36.6 % (37.9-51.0); HEMOGLOBIN 12.3 g/dL (13.5-17.0); LYMPHOCYTES % (AUTO) 10.2 % (13-45); MEAN CORPUSCULAR HEMOGLOBIN 28.8 pg (27.0-33.4); MEAN CORPUSCULAR HGB CONC 33.6 g/dL (32.0-36.0); MEAN CORPUSCULAR VOLUME 86 fl (80-97); MONOCYTES % (AUTO) 8.1 % (3-13); PLATELET COUNT 198 10^3/uL (150-450); RED BLOOD COUNT 4.27 10^6/uL (4.35-5.55); RED CELL DISTRIBUTION WIDTH 13.2 % (11.5-14.0); TOTAL CELLS COUNTED % (AUTO) 100 %; WHITE BLOOD COUNT 14.1 10^3/uL (4.0-10.5)
[2018-02-01] MEDS: HEPARIN SOD (PORCINE) 5,000 UNIT/ML 1 ML SYRINGE SUBCUT SCH ×3 (05:02→21:46)
[2018-02-01 05:05] LABS: ANION GAP 8 (5-19); BLOOD UREA NITROGEN 18 mg/dL (7-20); CALCIUM 8.3 mg/dL (8.4-10.2); CARBON DIOXIDE 26 mmol/L (22-30); CHLORIDE 99 mmol/L (98-107); GLUCOSE 327 mg/dL (75-110); PHOSPHORUS 2.9 mg/dL (2.5-4.5); POTASSIUM 3.9 mmol/L (3.6-5.0); SODIUM 133.1 mmol/L (137-145)
[2018-02-01] MEDS: KETOROLAC TROMETHAMINE INJ/PF 30 MG/1 ML SDV IV PRN ×2 (05:28→21:46)
[2018-02-01] MEDS: INSULIN LISPRO 100 UNIT/ML 3 ML VIAL SUBCUT PRN ×3 (09:00→17:10)
[2018-02-01] MEDS ORDERED: MIDAZOLAM 2 MG/2 ML INJ ONE (09:42)
[2018-02-01] MEDS: INSULIN GLARGINE,HUM.REC.ANLOG 1,000 UNIT/10 ML UNIT SUBCUT SCH ×2 (09:42→22:41)
[2018-02-01] MEDS ORDERED: FENTANYL CITRATE INJ/PF 100 MCG/2 ML AMPUL ONE (09:42)
[2018-02-01] MEDS ORDERED: PROPOFOL INJ 200 MG/20 ML VIAL IV ONE (09:43)
[2018-02-01] MEDS ORDERED: LIDOCAINE 0.5% INJ-PF (5 MG/ML) 50 ML SDV ONE (09:56)
[2018-02-01] MEDS ORDERED: BUPIVACAINE HCL 0.25 % INJ/PF (2.5 MG/1 ML) 30 ML VIAL ONE (09:56)
[2018-02-01] MEDS ORDERED: PROMETHAZINE HCL INJ 25 MG/1 ML VIAL IV PRN ×2 (10:40)
[2018-02-01] MEDS ORDERED: MEPERIDINE HCL/PF INJ 25 MG/1 ML DISP.SYRIN IV PRN (10:40)
[2018-02-01] MEDS ORDERED: FENTANYL CITRATE INJ/PF 100 MCG/2 ML AMPUL IV PRN ×3 (10:40)
[2018-02-01] MEDS ORDERED: DIPHENHYDRAMINE HCL 50 MG/ML VIAL IV PRN (10:40)
[2018-02-01 10:41] LABS: VANCOMYCIN,TROUGH 9.5 ug/mL (5.0-20.0)
[2018-02-01] MEDS: FENTANYL CITRATE INJ/PF 100 MCG/2 ML AMPUL ONE ×2 (11:30→11:40)
--- NOTE | 2018-02-01 12:14 | OPERATIVE REPORT E ---
Operative Report NAME: GARY JARAMILLO : 1970 AGE: 48Y DATE OF SURGERY: 02/01/2018 ROOM: 401 PREOPERATIVE DIAGNOSIS: Abscess of the left face. POSTOPERATIVE DIAGNOSIS: Abscess of the left face. OPERATION: Incision and drainage and debridement of 5 x 4 x 3.5 cm abscess cavity, left face just below the zygomatic arch. SURGEON: VELIA TROY M.D. ANESTHESIA: General. INDICATION: This is a 48-year-old male who plucked hair on his left cheek about 5 days ago. This gradually got swollen, red, and painful, and was admitted yesterday. He had a CAT scan of the face, which showed no drainable abscess yesterday. However, today, started to leak purulent material. There is a big induration around the left face with erythema involving the left eyelids. DESCRIPTION OF PROCEDURE: After adequate general anesthesia, the patient was placed in supine position and the left facial area prepped and draped in the usual sterile fashion. The draining site was then probed and more purulent material extruded out and cultures were obtained. Next, local anesthesia infiltrated around the area and an incision made medially. Local anesthesia infiltrated laterally and the incision also extended laterally to a total distance of about 4 cm. Next, the abscess site was then probed and appears to be going down deep in between facial muscle. There is still a lot of induration and further *------* incision made after local incision made. There was a lot of purulent material that was squeezed out and these areas were then probed and all purulent material removed. The area was subsequently pulse lavaged with a total of 3 L of saline. Some necrotic tissue was removed. After no more evidence of any pus collection, the cavity site was then packed with 0.25 inch Iodoform gauze using all 1 bottle content. Some bleeders on the skin were earlier controlled with cautery. The patient tolerated the procedure well. Needle, instrument, and sponge count were all correct. Estimated blood loss about 20 mL. The patient brought to the recovery room in satisfactory condition. DICTATING PHYSICIAN: VELIA TROY M.D. [id number] PHY#: [id number] ID: [id number] JOB#: [id number] ACCT: [id number] cc:VELIA TROY M.D. >
[2018-02-01] MEDS: MORPHINE SULFATE 10 MG/ML INJ IV PRN ×2 (12:22→17:10)
[2018-02-01] MEDS ORDERED: SUCCINYLCHOLINE CHLORIDE INJ 200 MG/10 ML VIAL ONE (15:06)
--- NOTE | 2018-02-01 16:50 | PDOC PROGRESS REPORT ---
Subjective Progress Note for:: 02/01/18 Subjective:: This patient was admitted with left facial swelling as well as cellulitis. He has been seen by surgery and is scheduled for OR today for incision and drainage. Reason For Visit: FACIAL CELLULITIS,DIABETES,THAD Physical Exam Vital Signs: Temp Pulse Resp BP Pulse Ox 97.7 F 92 19 149/71 H 97 02/01/18 15:21 02/01/18 15:21 02/01/18 15:21 02/01/18 15:21 02/01/18 15:21 Intake & Output 01/31/18 02/01/18 02/02/18 06:59 06:59 06:59 Intake Total 2223 5350 Output Total 700 475 10 Balance -700 1748 5340 Weight 130.6 kg General appearance: PRESENT: no acute distress, other - Left facial swelling and erythema Eye exam: PRESENT: other - infra orbital below the zygomatic arch swelling with gischarge Neck exam: ABSENT: carotid bruit, JVD, lymphadenopathy, thyromegaly Respiratory exam: PRESENT: clear to auscultation juancho. ABSENT: rales, rhonchi, wheezes Cardiovascular exam: PRESENT: RRR. ABSENT: diastolic murmur, rubs, systolic murmur GI/Abdominal exam: PRESENT: normal bowel sounds, soft. ABSENT: distended, guarding, mass, organolmegaly, rebound, tenderness Rectal exam: PRESENT: deferred Musculoskeletal exam: PRESENT: ambulatory Neurological exam: PRESENT: alert, awake, oriented to person, oriented to time, oriented to situation Results Laboratory Results: 02/01/18 04:02 02/01/18 04:02 02/01/18 02/01/18 02/01/18 04:02 04:02 04:02 WBC 14.1 H RBC 4.27 L Hgb 12.3 L Hct 36.6 L MCV 86 MCH 28.8 MCHC 33.6 RDW 13.2 Plt Count 198 Seg Neutrophils % 80.0 H Lymphocytes % 10.2 L Monocytes % 8.1 Eosinophils % 1.5 Basophils % 0.2 Absolute Neutrophils 11.3 H Absolute Lymphocytes 1.4 Absolute Monocytes 1.1 Absolute Eosinophils 0.2 Absolute Basophils 0.0 Sodium 133.1 L Potassium 3.9 Chloride 99 Carbon Dioxide 26 Anion Gap 8 BUN 18 Creatinine 0.98 Est GFR ( Amer) > 60 Est GFR (Non-Af Amer) > 60 Glucose 327 H Calcium 8.3 L Phosphorus 2.9 Magnesium 2.0 TSH 4.62 02/01/18 04:02 NT-Pro-B Natriuret Pep 389 H Impressions: Facial Bones CT 01/30/18 23:35 IMPRESSION: Moderate cellulitis pattern of the left paracentral face. Assessment & Plan - Time Time Spent with patient: 15-24 minutes Medications reviewed and adjusted accordingly: Yes Anticipated discharge: Home Within: within 72 hours - Plan Summary Plan Summary: Facial cellulitis status post incision and drainage today. Will follow up on cultures Continue vancomycin and Zosyn pending culture results 2. Type 2 diabetes mellitus poorly controlled. Patient needs education and diabetic teaching
[2018-02-01] MEDS: VANCOMYCIN HCL 1,500 MG in DEXTROSE 5%-WATER 250 ML IV SCH (17:11)
[2018-02-01] MEDS: OXYCODONE-ACETAMINOPHEN 5-325 MG TABLET PO PRN (19:54)
[2018-02-02] MEDS: VANCOMYCIN HCL 1,500 MG in DEXTROSE 5%-WATER 250 ML IV SCH ×3 (01:29→18:28)
[2018-02-02] MEDS: PIPERACILLIN SODIUM/TAZOBACTAM 3.375 GM in NORMAL SALINE 100 ML IV SCH ×2 (04:27→08:35)
[2018-02-02] MEDS: HEPARIN SOD (PORCINE) 5,000 UNIT/ML 1 ML SYRINGE SUBCUT SCH ×3 (05:59→21:24)
[2018-02-02] MEDS: OXYCODONE-ACETAMINOPHEN 5-325 MG TABLET PO PRN ×2 (06:00→18:27)
[2018-02-02] MEDS: MORPHINE SULFATE 10 MG/ML INJ IV PRN ×3 (07:43→17:19)
[2018-02-02] MEDS: INSULIN LISPRO 100 UNIT/ML 3 ML VIAL SUBCUT PRN ×3 (07:54→17:18)
[2018-02-02] MEDS: KETOROLAC TROMETHAMINE INJ/PF 30 MG/1 ML SDV IV PRN ×2 (08:34→18:27)
--- NOTE | 2018-02-02 09:45 | PDOC PROGRESS REPORT ---
Subjective Progress Note for:: 02/02/18 Subjective:: This patient was admitted with left facial swelling as well as cellulitis. He is s/p incision and drainage. Cultures are currently pending Reason For Visit: FACIAL CELLULITIS,DIABETES,THAD Physical Exam Vital Signs: Temp Pulse Resp BP Pulse Ox 98.6 F 78 20 119/70 98 02/02/18 07:00 02/02/18 07:00 02/02/18 07:00 02/02/18 07:00 02/02/18 07:00 Intake & Output 02/01/18 02/02/18 02/03/18 06:59 06:59 06:59 Intake Total 2223 7942 473 Output Total 475 310 400 Balance 1748 7632 73 Weight 130.6 kg 132.8 kg General appearance: PRESENT: no acute distress, other - Facial swelling left with less erythema around the sub zygomatic arch region Head exam: PRESENT: atraumatic Eye exam: PRESENT: periorbital swelling, other - Left eyes closed with erythema and swelling Mouth exam: PRESENT: moist, tongue midline Neck exam: ABSENT: carotid bruit, JVD, lymphadenopathy, thyromegaly Respiratory exam: PRESENT: clear to auscultation juancho. ABSENT: rales, rhonchi, wheezes Cardiovascular exam: PRESENT: RRR. ABSENT: diastolic murmur, rubs, systolic murmur Pulses: PRESENT: normal dorsalis pedis pul GI/Abdominal exam: PRESENT: normal bowel sounds, soft. ABSENT: distended, guarding, mass, organolmegaly, rebound, tenderness Rectal exam: PRESENT: deferred Extremities exam: PRESENT: calf tenderness, full ROM, tenderness. ABSENT: clubbing, pedal edema Neurological exam: PRESENT: alert, awake, oriented to person, oriented to place , oriented to time, oriented to situation, CN II-XII grossly intact. ABSENT: motor sensory deficit Skin exam: PRESENT: other - Left facial and orbital area as described Results Laboratory Results: 02/01/18 04:02 02/01/18 04:02 02/01/18 04:02 NT-Pro-B Natriuret Pep 389 H Impressions: Facial Bones CT 01/30/18 23:35 IMPRESSION: Moderate cellulitis pattern of the left paracentral face. Assessment & Plan - Time Time Spent with patient: 15-24 minutes Medications reviewed and adjusted accordingly: Yes Anticipated discharge: Home Within: within 72 hours - Inpatient Certification Based on my medical assessment, after consideration of the patient's comorbidities, presenting symptoms, or acuity I expect that the services needed warrant INPATIENT care.: Yes Medical Necessity: Need for IV Antibiotics, Need for Surgery - Plan Summary Plan Summary: 1.Facial cellulitis status post incision and drainage. cultures are currently pending Continue vancomycin and Zosyn pending culture results 2. Type 2 diabetes mellitus poorly controlled. Patient needs education and diabetic teaching Continue SSI 3. Morbid obesity-weight loss encouraged
[2018-02-02] MEDS: INSULIN GLARGINE,HUM.REC.ANLOG 1,000 UNIT/10 ML UNIT SUBCUT SCH (10:52)
--- NOTE | 2018-02-02 14:27 | Progress Note ---
Provider Note Provider Note: ID Consult Note Asked to review patient's chart by Pharmacy. Mr. Hunt is a 48 yo with obesity, tobacco use and poorly controlled diabetes. Per notes, he presented to the hospital with L facial cellulitis that started after attempting to remove hair from his cheek. He was empirically treated with vancomycin and Zosyn. A CT scan of the face initially did not reveal any abscess. However, a small amount of spontaneous drainage of purulent material started to drain, and he was taken to the OR for I&D of a 5 x 4 x 3.5 cm abscess cavity. Blood cultures have been negative x 48h. Cultures from the abscess obtained at surgery have preliminarily been reported as showing 4+ growth of Gram positive cocci in clusters. After I&D, the patient has had some improvement in erythema around the sub-zygomatic arch region where his cellulitis was focused. Impression/Recommendations Facial cellulitis, s/p incision and drainage. With cultures preliminarily reported as showing growth of only 4+ GPCs in clusters, discontinuing Zosyn and continuing vancomycin alone would be appropriate. I anticipate that this will be identified as Staph aureus based on the Gram stain morphology. When identification and susceptibilities are available, therapy can be further streamlined. Irineo Tao MD pager [phone]
[2018-02-02] MEDS ORDERED: INSULIN GLARGINE,HUM.REC.ANLOG 1,000 UNIT/10 ML UNIT SUBCUT SCH (15:13)
[2018-02-02 18:32] LABS: VANCOMYCIN,TROUGH 15.6 ug/mL (5.0-20.0)
--- NOTE | 2018-02-02 19:12 | PDOC PROGRESS REPORT ---
Subjective Progress Note for:: 02/02/18 Subjective:: Still with pains operated side but less than pre-op. Reason For Visit: FACIAL CELLULITIS,DIABETES,THAD Physical Exam Vital Signs: Temp Pulse Resp BP Pulse Ox 98.0 F 81 16 137/75 H 99 02/02/18 16:04 02/02/18 16:04 02/02/18 16:04 02/02/18 16:04 02/02/18 16:04 Intake & Output 02/01/18 02/02/18 02/03/18 06:59 06:59 06:59 Intake Total 2223 7942 473 Output Total 475 310 400 Balance 1748 7632 73 Weight 130.6 kg 132.8 kg Exam: Dressings/packing changed. Wound looks clean and dry but still with some tender surrounding induration. Has some edema over opposite eyelids. Results Laboratory Results: 02/01/18 04:02 02/01/18 04:02 NT-Pro-B Natriuret Pep 389 H Impressions: Facial Bones CT 01/30/18 23:35 IMPRESSION: Moderate cellulitis pattern of the left paracentral face. Assessment & Plan - Diagnosis (1) Facial cellulitis Is this a current diagnosis for this admission?: Yes (2) Hyperglycemia Is this a current diagnosis for this admission?: Yes (3) Diabetes 1.5, managed as type 1 Is this a current diagnosis for this admission?: Yes - Time Time Spent with patient: 15-24 minutes - Plan Summary Plan Summary: Continue daily dressing changes by nurses. Continue IV antibiotics for at least 48-72 hrs.
[2018-02-02] MEDS: INSULIN GLARGINE,HUM.REC.ANLOG 300 UNIT/3 ML INSULN.PEN SUBCUT SCH (21:24)
[2018-02-02] MEDS: ZOLPIDEM TARTRATE 5 MG TABLET PO SCH (21:25)
[2018-02-03] MEDS: VANCOMYCIN HCL 1,500 MG in DEXTROSE 5%-WATER 250 ML IV SCH ×2 (02:05→10:53)
[2018-02-03] MEDS: OXYCODONE-ACETAMINOPHEN 5-325 MG TABLET PO PRN ×4 (02:08→17:12)
[2018-02-03] MEDS: HEPARIN SOD (PORCINE) 5,000 UNIT/ML 1 ML SYRINGE SUBCUT SCH ×3 (05:07→22:54)
[2018-02-03] MEDS: INSULIN LISPRO 100 UNIT/ML 3 ML VIAL SUBCUT PRN ×2 (07:47→12:33)
[2018-02-03] MEDS: MORPHINE SULFATE 10 MG/ML INJ IV PRN ×4 (08:22→22:47)
[2018-02-03 08:49] LABS: ABSOLUTE EOSINOPHILS # (AUTO) 0.4 10^3/uL (0.0-0.6); ABSOLUTE LYMPHOCYTES (AUTO) 1.2 10^3/uL (0.5-4.7); ABSOLUTE MONOCYTES (AUTO) 0.8 10^3/uL (0.1-1.4); ABSOLUTE NEUT (AUTO) 6.6 10^3/uL (1.7-8.2); BASOPHILS % (AUTO) 0.4 % (0-2); EOSINOPHILS % (AUTO) 4.9 % (0-6); HEMATOCRIT 33.2 % (37.9-51.0); HEMOGLOBIN 11.3 g/dL (13.5-17.0); LYMPHOCYTES % (AUTO) 12.9 % (13-45); MEAN CORPUSCULAR HEMOGLOBIN 28.5 pg (27.0-33.4); MEAN CORPUSCULAR VOLUME 84 fl (80-97); MONOCYTES % (AUTO) 8.7 % (3-13); PLATELET COUNT 249 10^3/uL (150-450); RED BLOOD COUNT 3.96 10^6/uL (4.35-5.55); RED CELL DISTRIBUTION WIDTH 13.1 % (11.5-14.0); SEGMENTED NEUTROPHILS % (AUTO) 73.1 % (42-78); TOTAL CELLS COUNTED % (AUTO) 100 %
[2018-02-03 09:13] LABS: ANION GAP 9 (5-19); BLOOD UREA NITROGEN 27 mg/dL (7-20); CALCIUM 8.8 mg/dL (8.4-10.2); CARBON DIOXIDE 24 mmol/L (22-30); CHLORIDE 100 mmol/L (98-107); GLUCOSE 201 mg/dL (75-110); POTASSIUM 4.2 mmol/L (3.6-5.0); SODIUM 133.4 mmol/L (137-145)
--- NOTE | 2018-02-03 09:49 | PDOC PROGRESS REPORT ---
Subjective Progress Note for:: 02/03/18 Reason For Visit: FACIAL CELLULITIS,DIABETES,THAD Patient complaining of lots of facial pain. He states he feels a little better except during dressing change. According the nurse who had the patient yesterday, she said the facial swelling is diminished. Physical Exam Vital Signs: Temp Pulse Resp BP Pulse Ox 98.6 F 72 17 128/73 H 96 02/03/18 08:02 02/03/18 08:02 02/03/18 08:02 02/03/18 08:02 02/03/18 08:02 Intake & Output 02/02/18 02/03/18 02/04/18 06:59 06:59 06:59 Intake Total 7942 1323 Output Total 310 400 Balance 7632 923 Weight 132.8 kg 129.8 kg General appearance: PRESENT: mild distress Eye exam: PRESENT: other - The head and face are examined. This is a very impressive soft tissue infection with marked swelling of the periorbital region left she and nasal area. Packing removed from the operative debridement site which is approximately 2 and half centimeters in diameter by 2 cm deep. There is fibrinous exudate on the perimeter which was sharply debrided by Dr. Coronel at bedside scissors and pickups. Cavity still has some necrotic tissue but thin film only Results Laboratory Results: 02/03/18 07:51 02/03/18 07:51 02/02/18 02/03/18 02/03/18 17:40 07:51 07:51 WBC 9.0 RBC 3.96 L Hgb 11.3 L Hct 33.2 L MCV 84 MCH 28.5 MCHC 34.0 RDW 13.1 Plt Count 249 Seg Neutrophils % 73.1 Lymphocytes % 12.9 L Monocytes % 8.7 Eosinophils % 4.9 Basophils % 0.4 Absolute Neutrophils 6.6 Absolute Lymphocytes 1.2 Absolute Monocytes 0.8 Absolute Eosinophils 0.4 Absolute Basophils 0.0 Sodium 133.4 L Potassium 4.2 Chloride 100 Carbon Dioxide 24 Anion Gap 9 BUN 27 H Creatinine 1.00 1.54 H Est GFR ( Amer) > 60 58 L Est GFR (Non-Af Amer) > 60 48 L Glucose 201 H Calcium 8.8 02/01/18 10:39 Face - Abscess Gram Stain - Final 02/01/18 10:39 Face - Abscess Wound Culture - Final Staphylococcus Aureus No Anaerobic Organisms 02/01/18 10:37 Face - Abscess Gram Stain - Final 02/01/18 10:37 Face - Abscess Wound Culture - Final Staphylococcus Aureus No Anaerobic Organisms 02/01/18 04:02 NT-Pro-B Natriuret Pep 389 H Impressions: Facial Bones CT 01/30/18 23:35 IMPRESSION: Moderate cellulitis pattern of the left paracentral face. Assessment & Plan - Diagnosis (1) Facial abscess Is this a current diagnosis for this admission?: Yes Plan: Patient is 3 days status post operative debridement left facial abscess. This is a very impressive infection caused by staph aureus, sensitive to all antibiotics. Patient currently on vancomycin. According to nursing staff, and patient, the swelling is improved. He still cannot see out of his left eye due to the periorbital edema. Wound cavity some residual slough; I debrided amount of perimeter tissue at bedside which he tolerated reasonably Recommendations and plan 1. I suggested we increase the frequency of dressing changes to twice a day to promote a mechanical debridement; he should get into the shower, remove packing , then get out of the shower and have it repacked. 2. Continue intravenous antibiotics 3. We will start Colace a stool softener. 4. Patient will need another 24-48 hours of intravenous antibiotics until the facial swelling subsides. According to the patient he was hospitalized last year for bilateral gluteal and groin infections requiring 3 weeks of hospitalization.
[2018-02-03] MEDS: INSULIN GLARGINE,HUM.REC.ANLOG 300 UNIT/3 ML INSULN.PEN SUBCUT SCH ×2 (10:53→22:37)
[2018-02-03] MEDS: DOCUSATE SODIUM 100 MG CAPSULE PO SCH ×2 (10:53→18:15)
--- NOTE | 2018-02-03 13:35 | PDOC PROGRESS REPORT ---
Subjective Progress Note for:: 02/03/18 Subjective:: This patient was admitted with left facial swelling as well as cellulitis. He is s/p incision and drainage. Cultures are yielding MRSA Reason For Visit: FACIAL CELLULITIS,DIABETES,THAD Physical Exam Vital Signs: Temp Pulse Resp BP Pulse Ox 98.4 F 66 19 128/71 H 96 02/03/18 12:07 02/03/18 12:07 02/03/18 12:07 02/03/18 12:07 02/03/18 12:07 Intake & Output 02/02/18 02/03/18 02/04/18 06:59 06:59 06:59 Intake Total 7942 1323 Output Total 310 400 Balance 7632 923 Weight 132.8 kg 129.8 kg General appearance: PRESENT: no acute distress Eye exam: PRESENT: conjunctiva pink, EOMI, PERRLA. ABSENT: scleral icterus Ear exam: PRESENT: normal external ear exam Neck exam: ABSENT: carotid bruit, JVD, lymphadenopathy, thyromegaly Respiratory exam: PRESENT: clear to auscultation juancho. ABSENT: rales, rhonchi, wheezes Cardiovascular exam: PRESENT: RRR. ABSENT: diastolic murmur, rubs, systolic murmur Pulses: PRESENT: normal dorsalis pedis pul GI/Abdominal exam: PRESENT: normal bowel sounds, soft. ABSENT: distended, guarding, mass, organolmegaly, rebound, tenderness Rectal exam: PRESENT: deferred Extremities exam: PRESENT: full ROM. ABSENT: calf tenderness, clubbing, pedal edema Musculoskeletal exam: PRESENT: other - Left facial swelling with erythema Neurological exam: PRESENT: alert, awake, oriented to person, oriented to place , oriented to time, oriented to situation, CN II-XII grossly intact. ABSENT: motor sensory deficit Results Laboratory Results: 02/03/18 07:51 02/03/18 07:51 02/02/18 02/03/18 02/03/18 17:40 07:51 07:51 WBC 9.0 RBC 3.96 L Hgb 11.3 L Hct 33.2 L MCV 84 MCH 28.5 MCHC 34.0 RDW 13.1 Plt Count 249 Seg Neutrophils % 73.1 Lymphocytes % 12.9 L Monocytes % 8.7 Eosinophils % 4.9 Basophils % 0.4 Absolute Neutrophils 6.6 Absolute Lymphocytes 1.2 Absolute Monocytes 0.8 Absolute Eosinophils 0.4 Absolute Basophils 0.0 Sodium 133.4 L Potassium 4.2 Chloride 100 Carbon Dioxide 24 Anion Gap 9 BUN 27 H Creatinine 1.00 1.54 H Est GFR ( Amer) > 60 58 L Est GFR (Non-Af Amer) > 60 48 L Glucose 201 H Calcium 8.8 02/01/18 10:39 Face - Abscess Gram Stain - Final 02/01/18 10:39 Face - Abscess Wound Culture - Final Staphylococcus Aureus No Anaerobic Organisms 02/01/18 10:37 Face - Abscess Gram Stain - Final 02/01/18 10:37 Face - Abscess Wound Culture - Final Staphylococcus Aureus No Anaerobic Organisms 02/01/18 04:02 NT-Pro-B Natriuret Pep 389 H Impressions: Facial Bones CT 01/30/18 23:35 IMPRESSION: Moderate cellulitis pattern of the left paracentral face. Assessment & Plan - Time Time Spent with patient: 15-24 minutes Medications reviewed and adjusted accordingly: Yes Anticipated discharge: Home Within: within 72 hours - Inpatient Certification Based on my medical assessment, after consideration of the patient's comorbidities, presenting symptoms, or acuity I expect that the services needed warrant INPATIENT care.: Yes Medical Necessity: Need for IV Antibiotics - Plan Summary Plan Summary: 1.Facial cellulitis status post incision and drainage. cultures are currently yielded MRSA Continue vancomycin 2. Type 2 diabetes mellitus poorly controlled. Patient needs education and diabetic teaching Continue SSI 3. Morbid obesity-weight loss encouraged 4. Tobacco abuse #5 COPD stable #6 stable CHF 7. Medical noncompliance 8. Sleep apnea
[2018-02-03] MEDS: CEFAZOLIN 1 GM/D5W RTU 1 GM/50 ML RTUPB IV SCH (18:15)
[2018-02-03] MEDS: ZOLPIDEM TARTRATE 5 MG TABLET PO SCH (22:38)
[2018-02-04] MEDS: CEFAZOLIN 1 GM/D5W RTU 1 GM/50 ML RTUPB IV SCH ×3 (03:16→16:49)
[2018-02-04] MEDS: MORPHINE SULFATE 10 MG/ML INJ IV PRN ×4 (03:17→23:58)
[2018-02-04] MEDS: HEPARIN SOD (PORCINE) 5,000 UNIT/ML 1 ML SYRINGE SUBCUT SCH ×3 (06:21→23:59)
[2018-02-04] MEDS: INSULIN GLARGINE,HUM.REC.ANLOG 300 UNIT/3 ML INSULN.PEN SUBCUT SCH ×2 (10:06→23:59)
[2018-02-04] MEDS: DOCUSATE SODIUM 100 MG CAPSULE PO SCH ×2 (10:07→16:35)
[2018-02-04] MEDS: KETOROLAC TROMETHAMINE INJ/PF 30 MG/1 ML SDV IV PRN ×2 (10:21→18:51)
[2018-02-04] MEDS: OXYCODONE-ACETAMINOPHEN 5-325 MG TABLET PO PRN ×2 (10:21→16:49)
--- NOTE | 2018-02-04 12:35 | PDOC PROGRESS REPORT ---
Subjective Progress Note for:: 02/04/18 Subjective:: This patient was admitted with left facial swelling as well as cellulitis. He is s/p incision and drainage. Cultures are yielding MSSA Patient is clinically improved Reason For Visit: FACIAL CELLULITIS,DIABETES,THAD Physical Exam Vital Signs: Temp Pulse Resp BP Pulse Ox 97.4 F 65 12 117/64 97 02/04/18 11:00 02/04/18 11:00 02/04/18 11:00 02/04/18 11:00 02/04/18 11:00 Intake & Output 02/03/18 02/04/18 02/05/18 06:59 06:59 06:59 Intake Total 1323 1571 Output Total 400 250 Balance 923 1321 Weight 129.8 kg 135.4 kg General appearance: PRESENT: no acute distress, morbidly obese, well-developed, well-nourished, other Head exam: PRESENT: atraumatic Eye exam: PRESENT: periorbital swelling, other - swelling and erythema L periorbital area improving, Ear exam: PRESENT: normal external ear exam Neck exam: ABSENT: carotid bruit, JVD, lymphadenopathy, thyromegaly Respiratory exam: PRESENT: clear to auscultation juancho. ABSENT: rales, rhonchi, wheezes Cardiovascular exam: PRESENT: RRR. ABSENT: diastolic murmur, rubs, systolic murmur GI/Abdominal exam: PRESENT: normal bowel sounds, soft. ABSENT: distended, guarding, mass, organolmegaly, rebound, tenderness Rectal exam: PRESENT: deferred Extremities exam: PRESENT: full ROM. ABSENT: calf tenderness, clubbing, pedal edema Neurological exam: PRESENT: alert, awake, oriented to person, oriented to place , oriented to time, oriented to situation, CN II-XII grossly intact. ABSENT: motor sensory deficit Results Laboratory Results: 02/03/18 07:51 02/03/18 07:51 02/01/18 10:39 Face - Abscess Gram Stain - Final 02/01/18 10:39 Face - Abscess Wound Culture - Final Staphylococcus Aureus No Anaerobic Organisms 02/01/18 10:37 Face - Abscess Gram Stain - Final 02/01/18 10:37 Face - Abscess Wound Culture - Final Staphylococcus Aureus No Anaerobic Organisms 02/01/18 04:02 NT-Pro-B Natriuret Pep 389 H Impressions: Facial Bones CT 01/30/18 23:35 IMPRESSION: Moderate cellulitis pattern of the left paracentral face. Assessment & Plan - Time Time Spent with patient: 15-24 minutes Medications reviewed and adjusted accordingly: Yes Anticipated discharge: Home Within: within 72 hours - Inpatient Certification Based on my medical assessment, after consideration of the patient's comorbidities, presenting symptoms, or acuity I expect that the services needed warrant INPATIENT care.: Yes Medical Necessity: Need for IV Antibiotics - Plan Summary Plan Summary: 1.Facial cellulitis status post incision and drainage. cultures are currently yielded MSSA Continue Ancef Day 2. He was previously on Vancomycin 2. Type 2 diabetes mellitus poorly controlled. Patient needs education and diabetic teaching Continue SSI 3. Morbid obesity-weight loss encouraged 4. Tobacco abuse #5 COPD stable #6 stable CHF, compensated 7. Medical noncompliance 8. Sleep apnea 9. Mild hyponatremia
[2018-02-04] MEDS: INSULIN LISPRO 100 UNIT/ML 3 ML VIAL SUBCUT PRN (12:42)
--- NOTE | 2018-02-04 19:17 | PDOC PROGRESS REPORT ---
Subjective Progress Note for:: 02/04/18 Subjective:: left facial pains improving Reason For Visit: FACIAL CELLULITIS,DIABETES,THAD Physical Exam Vital Signs: Temp Pulse Resp BP Pulse Ox 97.4 F 65 12 117/64 97 02/04/18 15:01 02/04/18 15:01 02/04/18 15:01 02/04/18 15:01 02/04/18 15:01 Intake & Output 02/03/18 02/04/18 02/05/18 06:59 06:59 06:59 Intake Total 1323 1571 2190 Output Total 400 250 Balance 923 1321 2190 Weight 129.8 kg 135.4 kg Exam: Less inflamed and less tender left face operative site Results Laboratory Results: 02/03/18 07:51 02/03/18 07:51 02/01/18 04:02 NT-Pro-B Natriuret Pep 389 H Impressions: Facial Bones CT 01/30/18 23:35 IMPRESSION: Moderate cellulitis pattern of the left paracentral face. Assessment & Plan - Diagnosis (1) Facial cellulitis Is this a current diagnosis for this admission?: Yes (2) Hyperglycemia Is this a current diagnosis for this admission?: Yes (3) Diabetes 1.5, managed as type 1 Is this a current diagnosis for this admission?: Yes - Time Time Spent with patient: 15-24 minutes
[2018-02-04] MEDS: ZOLPIDEM TARTRATE 5 MG TABLET PO SCH (23:59)
[2018-02-05] MEDS: CEFAZOLIN 1 GM/D5W RTU 1 GM/50 ML RTUPB IV SCH ×3 (03:35→17:13)
[2018-02-05] MEDS: OXYCODONE-ACETAMINOPHEN 5-325 MG TABLET PO PRN ×4 (06:48→21:08)
[2018-02-05] MEDS: KETOROLAC TROMETHAMINE INJ/PF 30 MG/1 ML SDV IV PRN (06:49)
[2018-02-05] MEDS: HEPARIN SOD (PORCINE) 5,000 UNIT/ML 1 ML SYRINGE SUBCUT SCH ×3 (06:51→21:11)
[2018-02-05] MEDS: INSULIN GLARGINE,HUM.REC.ANLOG 300 UNIT/3 ML INSULN.PEN SUBCUT SCH ×2 (10:16→21:10)
[2018-02-05] MEDS: DOCUSATE SODIUM 100 MG CAPSULE PO SCH ×2 (10:17→17:10)
[2018-02-05] MEDS: INSULIN LISPRO 100 UNIT/ML 3 ML VIAL SUBCUT PRN ×2 (12:52→17:13)
--- NOTE | 2018-02-05 14:15 | PDOC PROGRESS REPORT ---
Subjective Progress Note for:: 02/05/18 Subjective:: less pains Reason For Visit: FACIAL CELLULITIS,DIABETES,THAD Physical Exam Vital Signs: Temp Pulse Resp BP Pulse Ox 98.4 F 62 19 138/74 H 97 02/05/18 10:58 02/05/18 10:58 02/05/18 10:58 02/05/18 10:58 02/05/18 10:58 Intake & Output 02/04/18 02/05/18 02/06/18 06:59 06:59 06:59 Intake Total 1571 2590 Output Total 250 Balance 1321 2590 Weight 135.4 kg 135.6 kg 135.6 kg Exam: I&D site left face looks relatively clean and dry but still with alot of induration around wound Results Laboratory Results: 02/03/18 07:51 02/03/18 07:51 02/01/18 04:02 NT-Pro-B Natriuret Pep 389 H Impressions: Facial Bones CT 01/30/18 23:35 IMPRESSION: Moderate cellulitis pattern of the left paracentral face. Assessment & Plan - Diagnosis (1) Facial cellulitis Is this a current diagnosis for this admission?: Yes (2) Hyperglycemia Is this a current diagnosis for this admission?: Yes (3) Diabetes 1.5, managed as type 1 Is this a current diagnosis for this admission?: Yes - Time Time Spent with patient: 15-24 minutes - Plan Summary Plan Summary: Continue wet to dry dressings and IV Antibiotics
--- NOTE | 2018-02-05 18:06 | PDOC PROGRESS REPORT ---
Subjective Progress Note for:: 02/05/18 Subjective:: Left face pain is improving. No fevers or chills. He does not think there is any drainage from the wound. He is eating and drinking without difficulty. No constipation or diarrhea. No dysuria. Chest pain or difficulty breathing. No new weakness. Reason For Visit: FACIAL CELLULITIS,DIABETES,THAD Physical Exam Vital Signs: Temp Pulse Resp BP Pulse Ox 98.2 F 66 19 136/77 H 96 02/05/18 15:30 02/05/18 15:30 02/05/18 15:30 02/05/18 15:30 02/05/18 15:30 Intake & Output 02/04/18 02/05/18 02/06/18 06:59 06:59 06:59 Intake Total 1571 2590 939 Output Total 250 Balance 1321 2590 939 Weight 135.4 kg 135.6 kg 135.6 kg General appearance: PRESENT: no acute distress, cooperative, obese Head exam: PRESENT: atraumatic, normocephalic, other - Face exampatient's left cheek has a little centimeter deep by several centimeter wide I&D pocket, cellulitis seems to be receding. There continues to be induration around the circumference of the wound opening. Eye exam: PRESENT: conjunctiva pink. ABSENT: scleral icterus Ear exam: PRESENT: normal external ear exam Mouth exam: PRESENT: moist, neck supple Neck exam: PRESENT: lymphadenopathy Respiratory exam: PRESENT: clear to auscultation juancho, unlabored. ABSENT: rales , rhonchi, wheezes Cardiovascular exam: PRESENT: RRR. ABSENT: systolic murmur Pulses: PRESENT: normal radial pulses GI/Abdominal exam: PRESENT: normal bowel sounds, soft. ABSENT: distended, tenderness Rectal exam: PRESENT: deferred Extremities exam: ABSENT: pedal edema, tenderness Musculoskeletal exam: PRESENT: normal inspection Neurological exam: PRESENT: alert, awake, oriented to person, oriented to place , oriented to situation, CN II-XII grossly intact Psychiatric exam: PRESENT: appropriate affect. ABSENT: agitated, anxious Skin exam: PRESENT: dry, warm, other - Please see head exam above Results Laboratory Results: 02/03/18 07:51 02/03/18 07:51 02/01/18 04:02 NT-Pro-B Natriuret Pep 389 H Impressions: Facial Bones CT 01/30/18 23:35 IMPRESSION: Moderate cellulitis pattern of the left paracentral face. Assessment & Plan - Diagnosis (1) Facial abscess Is this a current diagnosis for this admission?: Yes Plan: Cellulitis is improving. Surgeon is following after IND. Continue Ancef for MSSA. (3) CHF (congestive heart failure) Is this a current diagnosis for this admission?: Yes Plan: Unknown type. Appears well compensated. (4) Facial cellulitis Is this a current diagnosis for this admission?: Yes Plan: Cellulitis improving. Induration persists around circumference of wound. Will monitor closely. (5) DM type 2 (diabetes mellitus, type 2) Qualifiers: Diabetes mellitus inter[employer] customer [employer] insulin use: with skilled nursing use Diabetes mellitus complication status: with skin complications Diabetes mellitus complication detail: with other skin ulcer Qualified Code(s): E11.622 - Type 2 diabetes mellitus with other skin ulcer; Z79.4 - MCC (current) use of insulin Is this a current diagnosis for this admission?: Yes Plan: Patient has well-controlled blood sugars when he is not snacking. I am reluctant to change his glargine dosing for this reason. Will discuss dietary counseling with him tomorrow. (6) Severe obesity (BMI 35.0-35.9 with comorbidity) Is this a current diagnosis for this admission?: Yes Plan: Patient will need obesity counseling. (7) Tobacco abuse Is this a current diagnosis for this admission?: Yes Plan: Patient will need tobacco cessation counseling. - Time Time Spent with patient: 25-34 minutes Medications reviewed and adjusted accordingly: Yes - Inpatient Certification Based on my medical assessment, after consideration of the patient's comorbidities, presenting symptoms, or acuity I expect that the services needed warrant INPATIENT care.: Yes I certify that my determination is in accordance with my understanding of Medicare's requirements for reasonable and necessary INPATIENT services [42 CFR 412.3e].: Yes Medical Necessity: Need for IV Antibiotics, Need for Surgery
[2018-02-05] MEDS: ONDANSETRON HCL INJ/PF 4 MG/2 ML SDV IV PRN (21:08)
[2018-02-05] MEDS: ZOLPIDEM TARTRATE 5 MG TABLET PO SCH (21:11)
[2018-02-06] MEDS: HEPARIN SOD (PORCINE) 5,000 UNIT/ML 1 ML SYRINGE SUBCUT SCH ×3 (05:03→22:42)
[2018-02-06] MEDS: OXYCODONE-ACETAMINOPHEN 5-325 MG TABLET PO PRN ×2 (05:07→17:26)
[2018-02-06] MEDS: CEFAZOLIN 1 GM/D5W RTU 1 GM/50 ML RTUPB IV SCH ×2 (05:07→13:48)
[2018-02-06] MEDS: ONDANSETRON HCL INJ/PF 4 MG/2 ML SDV IV PRN ×2 (06:27→19:09)
[2018-02-06] MEDS ORDERED: KETOROLAC TROMETHAMINE INJ/PF 30 MG/1 ML SDV IV PRN (08:48)
[2018-02-06] MEDS: INSULIN GLARGINE,HUM.REC.ANLOG 300 UNIT/3 ML INSULN.PEN SUBCUT SCH ×2 (10:13→23:07)
[2018-02-06] MEDS: DOCUSATE SODIUM 100 MG CAPSULE PO SCH ×2 (10:15→17:19)
[2018-02-06] MEDS: INSULIN LISPRO 100 UNIT/ML 3 ML VIAL SUBCUT PRN (12:09)
--- NOTE | 2018-02-06 14:08 | PDOC PROGRESS REPORT ---
Subjective Progress Note for:: 02/06/18 Subjective:: Less pains left face wound Reason For Visit: FACIAL CELLULITIS,DIABETES,THAD Physical Exam Vital Signs: Temp Pulse Resp BP Pulse Ox 97.5 F 66 19 139/76 H 95 02/06/18 11:13 02/06/18 11:13 02/06/18 11:13 02/06/18 11:13 02/06/18 11:13 Intake & Output 02/05/18 02/06/18 02/07/18 06:59 06:59 06:59 Intake Total 2590 1623 Balance 2590 1623 Weight 135.6 kg 137.6 kg Exam: Less inflammation. Able to open left eyelid Wound dramatically smaller Continue wet to dry dressing and antibiotic IV Could probably be discharge on po antibiotics in 24-48 hrs Arrange follow up with the wound care center in 1-2 weeks Results Laboratory Results: 02/03/18 07:51 02/03/18 07:51 02/01/18 04:02 NT-Pro-B Natriuret Pep 389 H Impressions: Facial Bones CT 01/30/18 23:35 IMPRESSION: Moderate cellulitis pattern of the left paracentral face. Assessment & Plan - Diagnosis (1) Facial cellulitis Is this a current diagnosis for this admission?: Yes (2) Hyperglycemia Is this a current diagnosis for this admission?: Yes (3) Diabetes 1.5, managed as type 1 Is this a current diagnosis for this admission?: Yes
--- NOTE | 2018-02-06 16:24 | PDOC PROGRESS REPORT ---
Subjective Progress Note for:: 02/06/18 Subjective:: No chest pain or difficulty breathing. No fevers or chills. No nausea or vomiting. He is eating and drinking without difficulty. His left facial pain is improving. No drainage from the wound. His main complaint is that he wants to go home. Reason For Visit: FACIAL CELLULITIS,DIABETES,THAD Physical Exam Vital Signs: Temp Pulse Resp BP Pulse Ox 97.5 F 66 19 139/76 H 95 02/06/18 11:13 02/06/18 11:13 02/06/18 11:13 02/06/18 11:13 02/06/18 11:13 Intake & Output 02/05/18 02/06/18 02/07/18 06:59 06:59 06:59 Intake Total 2590 1623 Balance 2590 1623 Weight 135.6 kg 137.6 kg General appearance: PRESENT: no acute distress Head exam: PRESENT: atraumatic, normocephalic, other - Face exam shows left cheek wound, status post I&D with improving cellulitis, improving edema, improving induration. Eye exam: PRESENT: conjunctiva pink, EOMI. ABSENT: scleral icterus Mouth exam: PRESENT: moist, neck supple Respiratory exam: PRESENT: clear to auscultation juancho, unlabored. ABSENT: rales , rhonchi, wheezes Cardiovascular exam: PRESENT: RRR. ABSENT: systolic murmur Pulses: PRESENT: normal radial pulses GI/Abdominal exam: PRESENT: normal bowel sounds, soft. ABSENT: distended, tenderness Rectal exam: PRESENT: deferred Extremities exam: ABSENT: pedal edema Neurological exam: PRESENT: alert, awake, oriented to person, oriented to place , oriented to situation, CN II-XII grossly intact Psychiatric exam: PRESENT: appropriate affect. ABSENT: anxious Skin exam: PRESENT: dry, warm Results Laboratory Results: 02/03/18 07:51 02/03/18 07:51 02/01/18 04:02 NT-Pro-B Natriuret Pep 389 H Impressions: Facial Bones CT 01/30/18 23:35 IMPRESSION: Moderate cellulitis pattern of the left paracentral face. Assessment & Plan - Diagnosis (1) Facial abscess Is this a current diagnosis for this admission?: Yes Plan: I spoke with Dr. Mistry about the wound and the plan for discharge today. Dr. Mistry recommends surgical center follow-up. He thinks the wound will heal well as long as the patient takes care of it. He will need to go home on wet-to -dry dressing changes and probably he will need retirement in the home. Today I will transition his Ancef to oral Keflex 500 mg p.o. every 6 hours. I have also stopped his IV morphine and IV Toradol as he is not using these, we will continue Percocet as needed pain. (2) CHF (congestive heart failure) Is this a current diagnosis for this admission?: Yes (3) Facial cellulitis Is this a current diagnosis for this admission?: Yes Plan: Please see plan for facial abscess. (4) DM type 2 (diabetes mellitus, type 2) Qualifiers: Diabetes mellitus data integration developer insulin use: with data integration developer use Diabetes mellitus complication status: with skin complications Diabetes mellitus complication detail: with other skin ulcer Qualified Code(s): E11.622 - Type 2 diabetes mellitus with other skin ulcer; Z79.4 - shelter (current) use of insulin Is this a current diagnosis for this admission?: Yes Plan: Patient is not compliant with a diabetic diet. We discussed the importance of maintaining good diabetes control especially now with this significant infection probably related to poorly controlled diabetes and other risk factors. Will continue current diabetic care. (5) Severe obesity (BMI 35.0-35.9 with comorbidity) Is this a current diagnosis for this admission?: Yes Plan: Continue to encourage weight loss and healthy dietary habits along with regular exercise. (6) Tobacco abuse Is this a current diagnosis for this admission?: Yes Plan: Continue to discourage tobacco use. - Time Time Spent with patient: 25-34 minutes Anticipated discharge: Home with Homehealth - Inpatient Certification Based on my medical assessment, after consideration of the patient's comorbidities, presenting symptoms, or acuity I expect that the services needed warrant INPATIENT care.: Yes I certify that my determination is in accordance with my understanding of Medicare's requirements for reasonable and necessary INPATIENT services [42 CFR 412.3e].: Yes Medical Necessity: Risk of Complication if Not Cared For in Hospital Post Hospital Care: D/C [employer] Documentation
[2018-02-06] MEDS: CEPHALEXIN 500 MG CAPSULE PO SCH ×2 (17:23→23:13)
[2018-02-06] MEDS ORDERED: MORPHINE SULFATE 10 MG/ML INJ IV ONE (19:00)
[2018-02-06] MEDS: ZOLPIDEM TARTRATE 5 MG TABLET PO SCH (22:42)
[2018-02-06] MEDS: OXYCODONE HCL SR 10 MG TABLET PO PRN (23:07)
[2018-02-06] MEDS: ACETAMINOPHEN 325 MG TABLET PO PRN (23:08)
[2018-02-07] MEDS ORDERED: MORPHINE SULFATE 10 MG/ML INJ IV SCH
[2018-02-07] MEDS: ACETAMINOPHEN 325 MG TABLET PO PRN (04:52)
[2018-02-07] MEDS: OXYCODONE HCL SR 10 MG TABLET PO PRN ×2 (04:53→17:37)
[2018-02-07] MEDS: CEPHALEXIN 500 MG CAPSULE PO SCH ×3 (05:06→17:36)
[2018-02-07] MEDS: HEPARIN SOD (PORCINE) 5,000 UNIT/ML 1 ML SYRINGE SUBCUT SCH ×3 (05:06→22:25)
[2018-02-07 06:28] LABS: ANION GAP 9 (5-19); BLOOD UREA NITROGEN 42 mg/dL (7-20); CARBON DIOXIDE 26 mmol/L (22-30); CHLORIDE 103 mmol/L (98-107); GLUCOSE 146 mg/dL (75-110); POTASSIUM 5.2 mmol/L (3.6-5.0); SODIUM 138.2 mmol/L (137-145)
[2018-02-07] MEDS ORDERED: NORMAL SALINE 1000 ML 1,000 ML IV PRN ×3 (07:42→19:51)
[2018-02-07] MEDS: INSULIN GLARGINE,HUM.REC.ANLOG 300 UNIT/3 ML INSULN.PEN SUBCUT SCH (11:24)
[2018-02-07] MEDS: DOCUSATE SODIUM 100 MG CAPSULE PO SCH ×2 (11:24→17:36)
[2018-02-07 12:52] LABS: APPEARANCE,URINE CLEAR; BILIRUBIN,URINE NEGATIVE (NEGATIVE); COLOR,URINE YELLOW; GLUCOSE, URINE NEGATIVE (NEGATIVE); KETONES,URINE NEGATIVE (NEGATIVE); LEUKOCYTE ESTERASE,URINE NEGATIVE (NEGATIVE); NITRITE,URINE NEGATIVE (NEGATIVE); PROTEIN,URINE NEGATIVE (NEGATIVE); UROBILINOGEN,URINE NEGATIVE mg/dL (<2.0)
[2018-02-07 15:48] LABS: ANION GAP 7 (5-19); BLOOD UREA NITROGEN 42 mg/dL (7-20); CALCIUM 9.9 mg/dL (8.4-10.2); CARBON DIOXIDE 28 mmol/L (22-30); CHLORIDE 102 mmol/L (98-107); GLUCOSE 172 mg/dL (75-110); POTASSIUM 5.3 mmol/L (3.6-5.0); SODIUM 137.4 mmol/L (137-145)
--- NOTE | 2018-02-07 19:59 | PDOC PROGRESS REPORT ---
Subjective Progress Note for:: 02/07/18 Subjective:: Patient is breathing fine. No new pain. His left face at the abscess I&D site is still pretty painful. No difficulty with urination. No hematuria. No abdominal pain nausea or vomiting. No chest pain. Patient is ambulating without difficulty. No flank pain. I discussed patient's acute kidney injury and he is extremely frustrated and wants to go home, he wants to leave AMA. After multiple conversations with him today between me and his nurse we are able to convince him to stay in the hospital for safety. Reason For Visit: FACIAL CELLULITIS,DIABETES,THAD Physical Exam Vital Signs: Temp Pulse Resp BP Pulse Ox 99.1 F 65 16 160/80 H 98 02/07/18 16:51 02/07/18 16:51 02/07/18 16:51 02/07/18 16:51 02/07/18 16:51 Intake & Output 02/06/18 02/07/18 02/08/18 06:59 06:59 06:59 Intake Total 1623 1555 1410 Output Total 300 Balance 1623 1555 1110 Weight 137.6 kg General appearance: PRESENT: mild distress, morbidly obese Head exam: PRESENT: atraumatic, normocephalic Eye exam: PRESENT: EOMI Ear exam: PRESENT: normal external ear exam Respiratory exam: PRESENT: clear to auscultation juancho, unlabored. ABSENT: rales , wheezes Cardiovascular exam: PRESENT: RRR. ABSENT: systolic murmur Pulses: PRESENT: normal radial pulses GI/Abdominal exam: PRESENT: normal bowel sounds, soft. ABSENT: distended, tenderness Musculoskeletal exam: PRESENT: ambulatory Neurological exam: PRESENT: alert, awake, oriented to person, oriented to place , oriented to situation, CN II-XII grossly intact Psychiatric exam: PRESENT: agitated Skin exam: PRESENT: dry, intact, warm, other - Left face with dressing in place. Edema is significantly improved. Erythema is also improved. Results Laboratory Results: 02/03/18 07:51 02/07/18 15:25 02/07/18 02/07/18 02/07/18 05:19 11:05 13:30 Sodium 138.2 Cancelled Potassium 5.2 H Cancelled Chloride 103 Cancelled Carbon Dioxide 26 Cancelled Anion Gap 9 Cancelled BUN 42 H Cancelled Creatinine 2.53 H Cancelled Est GFR ( Amer) 33 L Cancelled Est GFR (Non-Af Amer) 27 L Cancelled Glucose 146 H Cancelled Calcium 10.0 Cancelled Urine Color YELLOW Urine Appearance CLEAR Urine pH 5.0 Ur Specific Mize 1.010 Urine Protein NEGATIVE Urine Glucose (UA) NEGATIVE Urine Ketones NEGATIVE Urine Blood SMALL H Urine Nitrite NEGATIVE Ur Leukocyte Esterase NEGATIVE Urine WBC (Auto) 2 Urine RBC (Auto) 1 02/07/18 15:25 Sodium 137.4 Potassium 5.3 H Chloride 102 Carbon Dioxide 28 Anion Gap 7 BUN 42 H Creatinine 2.49 H Est GFR ( Amer) 34 L Est GFR (Non-Af Amer) 28 L Glucose 172 H Calcium 9.9 Urine Color Urine Appearance Urine pH Ur Specific Mize Urine Protein Urine Glucose (UA) Urine Ketones Urine Blood Urine Nitrite Ur Leukocyte Esterase Urine WBC (Auto) Urine RBC (Auto) 02/01/18 04:02 NT-Pro-B Natriuret Pep 389 H Impressions: Facial Bones CT 01/30/18 23:35 IMPRESSION: Moderate cellulitis pattern of the left paracentral face. Assessment & Plan - Diagnosis (1) Acute renal injury Is this a current diagnosis for this admission?: Yes Plan: Patient's creatinine has approximately doubled since the last basic metabolic panel checked. He has an acute kidney injury of not entirely clear etiology. I fluid hydrated him with a significant amount of IV fluids today and his renal function is unchanged though it has not worsened. Urinalysis shows a small amount of blood and urine cultures pending. Renal ultrasound is ordered. Patient is urinating well and there is no sign of obstruction. This could be an acute interstitial nephritis that is medication related. For that reason I stopped his cephalosporin and have started him on clindamycin. Patient has been extremely agitated about the situation and wanted to leave [place] today. Will recheck basic metabolic panel in the morning. (2) Facial abscess Is this a current diagnosis for this admission?: Yes Plan: Patient has been recovering well since his I&D. He has been on Ancef and then Keflex for treatment of an MSSA abscess. Today he developed acute kidney injury as seen on morning labs. As there is the possibility that the kidney injury could be related to nephrotoxins, I have changed his antibiotics to clindamycin as this does not appear to be a prerenal acute kidney injury.. (3) CHF (congestive heart failure) Is this a current diagnosis for this admission?: Yes Plan: Stable, no changes (4) Facial cellulitis Is this a current diagnosis for this admission?: Yes Plan: Improving. Antibiotic was changed to clindamycin secondary to needing to avoid renal toxins. (5) DM type 2 (diabetes mellitus, type 2) Qualifiers: Diabetes mellitus superintendent container terminal insulin use: with superintendent container terminal use Diabetes mellitus complication status: with skin complications Diabetes mellitus complication detail: with other skin ulcer Qualified Code(s): E11.622 - Type 2 diabetes mellitus with other skin ulcer; Z79.4 - [facility]DC (current) use of insulin Is this a current diagnosis for this admission?: Yes Plan: Given infection his CBGs are relatively well controlled. No changes today. (6) Severe obesity (BMI 35.0-35.9 with comorbidity) Is this a current diagnosis for this admission?: Yes Plan: Patient was too agitated today to talk about weight loss. (7) Tobacco abuse Is this a current diagnosis for this admission?: Yes Plan: 2 agitated today to be receptive to tobacco cessation counseling. - Time Time Spent with patient: 35 or more minutes Medications reviewed and adjusted accordingly: Yes Anticipated discharge: Home - Inpatient Certification Based on my medical assessment, after consideration of the patient's comorbidities, presenting symptoms, or acuity I expect that the services needed warrant INPATIENT care.: Yes I certify that my determination is in accordance with my understanding of Medicare's requirements for reasonable and necessary INPATIENT services [42 CFR 412.3e].: Yes Medical Necessity: Need Close Monitoring Due to Risk of Patient Decompensation, Risk of Complication if Not Cared For in Hospital
[2018-02-07] MEDS ORDERED: SODIUM POLYSTYRENE SULFONATE 15 GM/60 ML PO ONE (20:30)
[2018-02-07] MEDS: CLINDAMYCIN HCL 150 MG CAPSULE PO SCH (22:22)
[2018-02-07] MEDS: ZOLPIDEM TARTRATE 5 MG TABLET PO SCH (22:25)
[2018-02-07] MEDS ORDERED: INSULIN GLARGINE,HUM.REC.ANLOG 300 UNIT/3 ML INSULN.PEN SUBCUT ONE (22:37)
[2018-02-08] MEDS: INSULIN GLARGINE,HUM.REC.ANLOG 300 UNIT/3 ML INSULN.PEN SUBCUT SCH ×3 (00:14→23:36)
[2018-02-08] MEDS: ONDANSETRON HCL INJ/PF 4 MG/2 ML SDV IV PRN (04:25)
[2018-02-08] MEDS: HEPARIN SOD (PORCINE) 5,000 UNIT/ML 1 ML SYRINGE SUBCUT SCH ×3 (05:07→23:15)
[2018-02-08] MEDS: CLINDAMYCIN HCL 150 MG CAPSULE PO SCH ×3 (05:29→23:36)
--- NOTE | 2018-02-08 08:12 | RADIOLOGY REPORT (SQ) ---
EXAM DESCRIPTION: U/S RETROPERITON (RENAL/AORTA) COMPLETED DATE/TIME: 02/08/2018 7:13 am REASON FOR STUDY: Acute kidney injury COMPARISON: Bilateral renal ultrasound 07/08/2017 TECHNIQUE: Dynamic and static grayscale images acquired of the kidneys and bladder and recorded on P ACS. Additional selected color Doppler and spectral images recorded. LIMITATIONS: Body habitus, left kidney not well seen FINDINGS: Both kidneys are normal in size. No hydronephrosis. No upper hydroureter. No bladder calculi. Limited view of the bladder unremarkable. IMPRESSION: Limited study due to body habitus. No hydronephrosis TECHNICAL DOCUMENTATION: JOB ID: [id number] [employer]- All Rights Reserved Reading location - IP/workstation name: [email or web address]
[2018-02-08] MEDS: OXYCODONE HCL SR 10 MG TABLET PO PRN (09:20)
[2018-02-08] MEDS: DOCUSATE SODIUM 100 MG CAPSULE PO SCH ×2 (09:21→17:07)
[2018-02-08] MEDS: ACETAMINOPHEN 325 MG TABLET PO PRN (15:36)
[2018-02-08 15:41] LABS: ABSOLUTE BASOPHILS # (AUTO) 0.1 10^3/uL (0.0-0.2); ABSOLUTE EOSINOPHILS # (AUTO) 0.2 10^3/uL (0.0-0.6); ABSOLUTE LYMPHOCYTES (AUTO) 1.6 10^3/uL (0.5-4.7); ABSOLUTE MONOCYTES (AUTO) 0.8 10^3/uL (0.1-1.4); ABSOLUTE NEUT (AUTO) 5.4 10^3/uL (1.7-8.2); BASOPHILS % (AUTO) 0.8 % (0-2); EOSINOPHILS % (AUTO) 2.2 % (0-6); HEMATOCRIT 34.6 % (37.9-51.0); HEMOGLOBIN 11.5 g/dL (13.5-17.0); LYMPHOCYTES % (AUTO) 19.4 % (13-45); MEAN CORPUSCULAR HEMOGLOBIN 28.5 pg (27.0-33.4); MEAN CORPUSCULAR HGB CONC 33.2 g/dL (32.0-36.0); MEAN CORPUSCULAR VOLUME 86 fl (80-97); MONOCYTES % (AUTO) 10.3 % (3-13); PLATELET COUNT 303 10^3/uL (150-450); RED BLOOD COUNT 4.03 10^6/uL (4.35-5.55); RED CELL DISTRIBUTION WIDTH 13.4 % (11.5-14.0); SEGMENTED NEUTROPHILS % (AUTO) 67.3 % (42-78); TOTAL CELLS COUNTED % (AUTO) 100 %
[2018-02-08 16:02] LABS: ANION GAP 10 (5-19); BLOOD UREA NITROGEN 39 mg/dL (7-20); CALCIUM 9.6 mg/dL (8.4-10.2); CARBON DIOXIDE 28 mmol/L (22-30); CHLORIDE 103 mmol/L (98-107); GLUCOSE 155 mg/dL (75-110); POTASSIUM 5.7 mmol/L (3.6-5.0); SODIUM 140.9 mmol/L (137-145)
[2018-02-08] MEDS ORDERED: SODIUM POLYSTYRENE SULFONATE 15 GM/60 ML PO ONE (16:42)
[2018-02-08] MEDS: LACTOBACILLUS ACIDOPHILUS 250 MG TAB PO SCH (17:09)
[2018-02-08] MEDS ORDERED: LIDOCAINE 0.5% INJ-PF (5 MG/ML) 50 ML SDV ONE (20:34)
[2018-02-08] MEDS: ZOLPIDEM TARTRATE 5 MG TABLET PO SCH (23:15)
[2018-02-09] MEDS ORDERED: LIDOCAINE 0.5% INJ-PF (5 MG/ML) 50 ML SDV INJ ONE (04:00)
[2018-02-09] MEDS: HEPARIN SOD (PORCINE) 5,000 UNIT/ML 1 ML SYRINGE SUBCUT SCH ×3 (06:01→22:51)
[2018-02-09] MEDS: CLINDAMYCIN HCL 150 MG CAPSULE PO SCH ×3 (06:42→22:51)
[2018-02-09] MEDS: OXYCODONE HCL SR 10 MG TABLET PO PRN ×2 (06:47→14:51)
[2018-02-09 10:54] LABS: ABSOLUTE EOSINOPHILS # (AUTO) 0.1 10^3/uL (0.0-0.6); ABSOLUTE LYMPHOCYTES (AUTO) 1.3 10^3/uL (0.5-4.7); ABSOLUTE MONOCYTES (AUTO) 0.7 10^3/uL (0.1-1.4); ABSOLUTE NEUT (AUTO) 5.6 10^3/uL (1.7-8.2); BASOPHILS % (AUTO) 0.5 % (0-2); EOSINOPHILS % (AUTO) 1.8 % (0-6); HEMATOCRIT 34.3 % (37.9-51.0); HEMOGLOBIN 11.5 g/dL (13.5-17.0); LYMPHOCYTES % (AUTO) 17.1 % (13-45); MEAN CORPUSCULAR HEMOGLOBIN 28.9 pg (27.0-33.4); MEAN CORPUSCULAR HGB CONC 33.6 g/dL (32.0-36.0); MEAN CORPUSCULAR VOLUME 86 fl (80-97); MONOCYTES % (AUTO) 8.5 % (3-13); PLATELET COUNT 328 10^3/uL (150-450); RED BLOOD COUNT 3.99 10^6/uL (4.35-5.55); RED CELL DISTRIBUTION WIDTH 13.4 % (11.5-14.0); SEGMENTED NEUTROPHILS % (AUTO) 72.1 % (42-78); TOTAL CELLS COUNTED % (AUTO) 100 %; WHITE BLOOD COUNT 7.7 10^3/uL (4.0-10.5)
[2018-02-09] MEDS: INSULIN GLARGINE,HUM.REC.ANLOG 300 UNIT/3 ML INSULN.PEN SUBCUT SCH ×2 (11:03→22:50)
[2018-02-09] MEDS: LACTOBACILLUS ACIDOPHILUS 250 MG TAB PO SCH ×2 (11:07→17:20)
[2018-02-09] MEDS: DOCUSATE SODIUM 100 MG CAPSULE PO SCH ×2 (11:07→17:13)
[2018-02-09 11:09] LABS: ANION GAP 12 (5-19); BLOOD UREA NITROGEN 36 mg/dL (7-20); CALCIUM 9.7 mg/dL (8.4-10.2); CARBON DIOXIDE 30 mmol/L (22-30); CHLORIDE 100 mmol/L (98-107); GLUCOSE 170 mg/dL (75-110); POTASSIUM 5.6 mmol/L (3.6-5.0); SODIUM 141.6 mmol/L (137-145)
[2018-02-09] MEDS ORDERED: SODIUM POLYSTYRENE SULFONATE 15 GM/60 ML PO ONE (16:00)
--- NOTE | 2018-02-09 17:53 | PDOC PROGRESS REPORT ---
Subjective Progress Note for:: 02/08/18 Subjective:: The patient is a morbidly obese 48-year-old male with a past medical history significant for uncontrolled insulin-dependent diabetes mellitus, recurrent abscesses, tobacco dependence and noncompliance. He presented with facial abscess and cellulitis. He was admitted for IV antibiotics. He has been seen by the general surgery service and had his wound debrided. His cellulitis is improving however the patient has developed acute renal failure. He reports that he developed acute renal failure after his last infection that he was hospitalized for. Currently his creatinine is 2.46. His creatinine when he came to the hospital was 0.95. The patient has hyperkalemia today and will be receiving some Kayexalate. It does look like his acute kidney injury is plateauing. I am going to have nephrology take a look at him today as well. The patient is quite anxious to get out of the hospital. Currently he has lost his IV access and refuses to have another one placed. He is on oral therapies. Today he states that he feels about the same. He denies fever chills. He states he has some pain on the left side of his face but that it is improving. He has had no chest pain, shortness of breath or cough. No nausea vomiting or diarrhea. No abdominal pain. He states that he is making good urine. He does complain of swelling in his lower extremities. Reason For Visit: FACIAL CELLULITIS,DIABETES,THAD Physical Exam Vital Signs: Temp Pulse Resp BP Pulse Ox 98.1 F 64 19 143/74 H 95 02/08/18 15:47 02/08/18 15:47 02/08/18 15:47 02/08/18 15:47 02/08/18 15:47 Intake & Output 02/07/18 02/08/18 02/09/18 06:59 06:59 06:59 Intake Total 1555 2742 Output Total 300 Balance 1555 2442 Weight 135.5 kg General appearance: PRESENT: no acute distress, morbidly obese Head exam: PRESENT: normocephalic, other - The patient has a dressing in place that was not removed as of the time of this dictation Mouth exam: PRESENT: moist, tongue midline Respiratory exam: PRESENT: clear to auscultation juancho. ABSENT: rales, rhonchi, wheezes Cardiovascular exam: PRESENT: RRR. ABSENT: diastolic murmur, rubs, systolic murmur GI/Abdominal exam: PRESENT: normal bowel sounds, soft. ABSENT: distended, guarding, mass, organolmegaly, rebound, tenderness Rectal exam: PRESENT: deferred Extremities exam: PRESENT: full ROM. ABSENT: calf tenderness, clubbing, pedal edema Musculoskeletal exam: PRESENT: ambulatory Neurological exam: PRESENT: alert, awake, oriented to person, oriented to place , oriented to time, oriented to situation, CN II-XII grossly intact. ABSENT: motor sensory deficit Psychiatric exam: PRESENT: agitated, anxious Skin exam: PRESENT: dry, intact, warm, other - Patient has dressing in place to the left cheek. The wound was examined and appears to be fairly clean.. ABSENT: cyanosis, rash Results Laboratory Results: 02/08/18 15:30 02/08/18 15:30 02/08/18 02/08/18 15:30 15:30 WBC 8.0 RBC 4.03 L Hgb 11.5 L Hct 34.6 L MCV 86 MCH 28.5 MCHC 33.2 RDW 13.4 Plt Count 303 Seg Neutrophils % 67.3 Lymphocytes % 19.4 Monocytes % 10.3 Eosinophils % 2.2 Basophils % 0.8 Absolute Neutrophils 5.4 Absolute Lymphocytes 1.6 Absolute Monocytes 0.8 Absolute Eosinophils 0.2 Absolute Basophils 0.1 Sodium 140.9 Potassium 5.7 H Chloride 103 Carbon Dioxide 28 Anion Gap 10 BUN 39 H Creatinine 2.54 H Est GFR ( Amer) 33 L Est GFR (Non-Af Amer) 27 L Glucose 155 H Calcium 9.6 Magnesium 2.1 02/01/18 04:02 NT-Pro-B Natriuret Pep 389 H Impressions: Facial Bones CT 01/30/18 23:35 IMPRESSION: Moderate cellulitis pattern of the left paracentral face. Renal Ultrasound 02/08/18 00:00 IMPRESSION: Limited study due to body habitus. No hydronephrosis Assessment & Plan - Diagnosis (1) Facial abscess Is this a current diagnosis for this admission?: Yes Plan: Due to concerns for nephrotoxicity his antibiotics have been changed to clindamycin. I am concerned about him getting Clostridium difficile on this antibiotic. I started him on a probiotic for now. (2) Acute renal failure Is this a current diagnosis for this admission?: Yes Plan: His creatinine may be plateauing. He has persistent hyperkalemia. We will get nephrology to take a look at him. He may need outpatient follow-up. If his kidney function begins to trend downwards and his hyperkalemia resolves he can likely be discharged home with outpatient follow-up. (3) Diabetes mellitus Is this a current diagnosis for this admission?: Yes Plan: Blood sugars are adequately controlled on current regimen. (4) Diastolic CHF, chronic Is this a current diagnosis for this admission?: Yes Plan: Currently appears to be euvolemic however he does have significant lower extremity swelling.. (5) Morbid obesity Is this a current diagnosis for this admission?: Yes Plan: Dietary discretion is advised (6) Anemia Is this a current diagnosis for this admission?: Yes Plan: He has had a precipitous drop in hemoglobin likely due to hemodilution. He also has an area of chronic disease. He has had multiple blood draws as well. (7) Tobacco abuse Is this a current diagnosis for this admission?: Yes Plan: Certainly it would be in his best interest to not smoke (8) Hyperkalemia Is this a current diagnosis for this admission?: Yes Plan: Secondary to acute renal failure. I am going to give him another dose of Kayexalate today. Nephrology has been consulted. (9) Full code status Is this a current diagnosis for this admission?: Yes - Time Time Spent with patient: 25-34 minutes - Inpatient Certification Medical Necessity: Other - Inpatient hospitalization remains necessary. The patient is requiring parenteral fluids for acute renal failure. Unfortunately his renal function continues to worsen. We are going to get nephrology to take a look at the patient. I would like to see his creatinine trending downwards prior to discharge.
--- NOTE | 2018-02-09 17:56 | PDOC PROGRESS REPORT ---
Subjective Progress Note for:: 02/09/18 Subjective:: The patient is a morbidly obese 48-year-old male with a past medical history significant for uncontrolled insulin-dependent diabetes mellitus, recurrent abscesses, tobacco dependence and noncompliance. He presented with facial abscess and cellulitis. He was admitted for IV antibiotics. He has been seen by the general surgery service and had his wound debrided. His cellulitis is improving however the patient has developed acute renal failure. He reports that he developed acute renal failure after his last infection that he was hospitalized for. Currently his creatinine is 2.46. His creatinine when he came to the hospital was 0.95. The patient has hyperkalemia today and will be receiving some Kayexalate. It does look like his acute kidney injury is plateauing. I am going to have nephrology take a look at him today as well. The patient is quite anxious to get out of the hospital. Currently he has lost his IV access and refuses to have another one placed. He is on oral therapies. Today he states that he feels about the same. He denies fever chills. He states he has some pain on the left side of his face but that it is improving. He has had no chest pain, shortness of breath or cough. No nausea vomiting or diarrhea. No abdominal pain. He states that he is making good urine. He does complain of swelling in his lower extremities. Reason For Visit: FACIAL CELLULITIS,DIABETES,THAD Physical Exam Vital Signs: Temp Pulse Resp BP Pulse Ox 98.6 F 65 16 149/73 H 98 02/09/18 15:10 02/09/18 15:10 02/09/18 15:10 02/09/18 15:10 02/09/18 15:10 Intake & Output 02/08/18 02/09/18 02/10/18 06:59 06:59 06:59 Intake Total 2742 1794 Output Total 300 Balance 2442 1794 Weight 135.5 kg 133.7 kg General appearance: PRESENT: no acute distress, well-developed, well-nourished Head exam: PRESENT: normocephalic, other - Bandage in place that was not removed Respiratory exam: PRESENT: clear to auscultation juancho. ABSENT: rales, rhonchi, wheezes Cardiovascular exam: PRESENT: RRR. ABSENT: diastolic murmur, rubs, systolic murmur GI/Abdominal exam: PRESENT: normal bowel sounds, soft. ABSENT: distended, guarding, mass, organolmegaly, rebound, tenderness Rectal exam: PRESENT: deferred Extremities exam: PRESENT: full ROM. ABSENT: calf tenderness, clubbing, pedal edema Musculoskeletal exam: PRESENT: ambulatory Neurological exam: PRESENT: alert, awake, oriented to person, oriented to place , oriented to time, oriented to situation, CN II-XII grossly intact. ABSENT: motor sensory deficit Psychiatric exam: PRESENT: appropriate affect, normal mood. ABSENT: homicidal ideation, suicidal ideation Skin exam: PRESENT: dry, intact, warm. ABSENT: cyanosis, rash Results Laboratory Results: 02/09/18 10:22 02/09/18 10:22 02/09/18 02/09/18 10:22 10:22 WBC 7.7 RBC 3.99 L Hgb 11.5 L Hct 34.3 L MCV 86 MCH 28.9 MCHC 33.6 RDW 13.4 Plt Count 328 Seg Neutrophils % 72.1 Lymphocytes % 17.1 Monocytes % 8.5 Eosinophils % 1.8 Basophils % 0.5 Absolute Neutrophils 5.6 Absolute Lymphocytes 1.3 Absolute Monocytes 0.7 Absolute Eosinophils 0.1 Absolute Basophils 0.0 Sodium 141.6 Potassium 5.6 H Chloride 100 Carbon Dioxide 30 Anion Gap 12 BUN 36 H Creatinine 2.46 H Est GFR ( Amer) 34 L Est GFR (Non-Af Amer) 28 L Glucose 170 H Calcium 9.7 Magnesium 1.9 02/01/18 04:02 NT-Pro-B Natriuret Pep 389 H Impressions: Facial Bones CT 01/30/18 23:35 IMPRESSION: Moderate cellulitis pattern of the left paracentral face. Renal Ultrasound 02/08/18 00:00 IMPRESSION: Limited study due to body habitus. No hydronephrosis Assessment & Plan - Diagnosis (1) Facial abscess Is this a current diagnosis for this admission?: Yes (2) Acute renal failure Is this a current diagnosis for this admission?: Yes (3) Diabetes mellitus Is this a current diagnosis for this admission?: Yes (4) Diastolic CHF, chronic Is this a current diagnosis for this admission?: Yes (5) Morbid obesity Is this a current diagnosis for this admission?: Yes (6) Anemia Is this a current diagnosis for this admission?: Yes (7) Tobacco abuse Is this a current diagnosis for this admission?: Yes (8) Hyperkalemia Is this a current diagnosis for this admission?: Yes (9) Full code status Is this a current diagnosis for this admission?: Yes - Time Time Spent with patient: 25-34 minutes - Inpatient Certification Medical Necessity: Other - Nephrology will see the patient today. Hopefully his creatinine will start trending downwards. If his potassium level is better he may be able to be discharged tomorrow.
[2018-02-09] MEDS ORDERED: FUROSEMIDE INJ/PF 40 MG/4 ML SDV IV ONE (19:00)
--- NOTE | 2018-02-09 19:57 | PDOC CONSULTATION ---
Consultation Consult Date: 02/09/18 Attending physician:: ANNABELLE HERRERA Consult reason:: I was asked to see the patient because of acute kidney injury and hyperkalemia. History of Present Illness Admission Date/PCP: 01/31/18 02:50 MYRA ELLINGTON History of Present Illness: GARY JARAMILLO is a 48 year old male with history of diabetes mellitus, recurrent abscesses, obesity and noncompliance who was admitted on January 31, 2018 because of facial cellulitis and abscess. Patient related that he pulled an ingrown hair on his left face and the swelling progressed and develop into an abscess. He said when he came in the left side of his face was so swollen including his left eye which was sharp when he came in. Patient was admitted with leukocytosis and elevated blood sugars as well. Facial CT scan with IV contrast was done which ruled out periorbital cellulitis or abscess. Since then he was treated with antibiotics intravenously including IV Zosyn, IV vancomycin for a short period of time, IV cefazolin and currently clindamycin. While here in the hospital the patient's kidney function started to get worse. On admission he had a BUN of 18 and creatinine of 0.95 with normal EGFR. On February 03 he had a BUN of 27 creatinine of 1.54 with estimated GFR 48. On February 07 he had a BUN of 42, creatinine of 2.53 and estimated GFR of 27. Since then his kidney function has been unchanged. Today he had a BUN of 36 and creatinine of 2.46 with estimated GFR of 28. He has been having hyperkalemia for the past 4 days anywhere between 5.2-5.7 yesterday and today it was 5.6. He has received Kayexalate for the last 3 days including today. Patient denies any problem with urination and tells me that he has good urine flow without any gross hematuria, urgency, dysuria nor frequency. He tells me about 6 months ago he was admitted and was given IV antibiotics and was told that his kidney function was abnormal. Other than that he is not aware of any chronic kidney disease. He did admit that he has had history of kidney stones in the past. He said he signed out AGAINST MEDICAL ADVICE and went home and just took some vinegar and he thought his kidney function cleared up to normal. It did not appear that he did follow-up after that episode. Currently he is very comfortable his left face swelling has been better and he wanted to actually go home. He said his appetite is good and has been drinking fluids. While here in the hospital he also developed leg swelling. Kidney ultrasound that was done on February 08 showed negative for hydronephrosis otherwise unremarkable kidneys with normal kidney sizes with the right measuring 12.1 cm in the left measuring 12.9 cm. He otherwise does not have any other complaints at this time. Past Medical History Cardiac Medical History: Reports: CHF-Diastolic Pulmonary Medical History: Reports: Chronic Obstructive Pulmonary Disease (COPD) Endocrine Medical History: Reports: Diabetes Mellitus Type 2, Obesity Complications of Diabetes: Reports: Autonomic Neuropathy Musculoskeltal Medical History: Reports: Other - History of left tibial fracture Psychiatric Medical History: Reports: Tobacco Dependency Past Surgical History Past Surgical History: Reports: Appendectomy, Orthopedic Surgery - Vertebral fracture repair with jamaal placement, Tonsillectomy, Other - Excision of left shoulder cyst Social History Lives with: Family, Spouse/Significant other Smoking Status: Current Every Day Smoker Cigarettes Packs Per Day: 0.6 Frequency of Alcohol Use: Rare Hx Recreational Drug Use: No Drugs: None Hx Prescription Drug Abuse: No - Advance Directive Resuscitation Status: Full Code Family History Family History: CAD - Mother, Chronic Kidney Disease - His father has Bright disease, CVA - Father, maternal grandmother, DM - Paternal grandfather, End Stage Renal Disease - Mother was on dialysis, paternal grandmother, Malignancy - Skin cancer in his father Parental Family History Reviewed: Yes Children Family History Reviewed: Unknown Sibling(s) Family History Reviewed.: Unknown Medication/Allergy Home Medications: Insulin Detemir [Levemir Flextouch] 30 unit SQ Q12 01/31/18 Allergies/Adverse Reactions: No Known Allergies Allergy (Verified 07/03/17 17:35) Review of Systems All systems: reviewed and no additional remarkable complaints except as stated Review of Systems: Constitutional: ABSENT: chills, fatigue, fever(s), headache(s), weight gain, weight loss Eyes: ABSENT: visual disturbances Ears: ABSENT: hearing changes Cardiovascular: ABSENT: chest pain, dyspnea on exertion, orthropnea, palpitations; positive lower extremity edema Respiratory: ABSENT: cough, dyspnea, hemoptysis Gastrointestinal: ABSENT: abdominal pain, constipation, diarrhea, hematemesis, hematochezia, nausea, vomiting Genitourinary: ABSENT: dysuria, hematuria Musculoskeletal: ABSENT: joint swelling Integumentary: ABSENT: rash, wounds Neurological: ABSENT: abnormal gait, abnormal speech, confusion, dizziness, focal weakness, numbness, syncope Psychiatric: ABSENT: anxiety, depression Endocrine: ABSENT: cold intolerance, heat intolerance, polydipsia, polyuria Hematologic/Lymphatic: ABSENT: easy bleeding, easy bruising, lymphadenopathy Physical Exam Vital Signs: Temp Pulse Resp BP Pulse Ox 98.6 F 65 16 149/73 H 98 02/09/18 15:10 02/09/18 15:10 02/09/18 15:10 02/09/18 15:10 02/09/18 15:10 Intake & Output 02/08/18 02/09/18 02/10/18 06:59 06:59 06:59 Intake Total 2742 1794 1700 Output Total 300 Balance 2442 1794 1700 Weight 135.5 kg 133.7 kg Exam: General appearance: no acute distress, cooperative, well-developed, well- nourished Head exam: PRESENT: atraumatic, normocephalic; left facial abscess has dressing over it. Eye exam: PRESENT: Conjunctiva slightly pale, EOMI, PERRLA. ABSENT: conjunctival injection, scleral icterus Mouth exam: PRESENT: moist, neck supple, tongue midline Neck exam: PRESENT: full ROM. ABSENT: carotid bruit, JVD, lymphadenopathy, thyromegaly Respiratory exam: PRESENT: clear to auscultation bilaterally. ABSENT: rales, rhonchi, stridor, wheezes Cardiovascular exam: PRESENT: RRR, +S1, +S2. ABSENT: systolic murmur Pulses: PRESENT: normal radial pulses, normal dorsalis pedis pulses GI/Abdominal exam: PRESENT: normal bowel sounds, soft. ABSENT: guarding, mass, tenderness Rectal exam: deferred Extremities exam: PRESENT: full ROM. Grade 1 bilateral lower extremity pitting edema left greater than the right ABSENT: calf tenderness Musculoskeletal: PRESENT: full ROM. ABSENT: deformity Neurological exam: PRESENT: alert, Awake, Oriented to person, Oriented to place , Oriented to time, reflexes normal, CN II-XII grossly intact. ABSENT: motor sensory deficit Psychiatric exam: PRESENT: appropriate affect, normal mood. ABSENT: homicidal ideation, suicidal ideation Skin exam: PRESENT: intact, dry, warm. ABSENT: rash Results Laboratory Results: 02/09/18 10:22 02/09/18 10:22 02/09/18 02/09/18 10:22 10:22 WBC 7.7 RBC 3.99 L Hgb 11.5 L Hct 34.3 L MCV 86 MCH 28.9 MCHC 33.6 RDW 13.4 Plt Count 328 Seg Neutrophils % 72.1 Lymphocytes % 17.1 Monocytes % 8.5 Eosinophils % 1.8 Basophils % 0.5 Absolute Neutrophils 5.6 Absolute Lymphocytes 1.3 Absolute Monocytes 0.7 Absolute Eosinophils 0.1 Absolute Basophils 0.0 Sodium 141.6 Potassium 5.6 H Chloride 100 Carbon Dioxide 30 Anion Gap 12 BUN 36 H Creatinine 2.46 H Est GFR ( Amer) 34 L Est GFR (Non-Af Amer) 28 L Glucose 170 H Calcium 9.7 Magnesium 1.9 02/01/18 04:02 NT-Pro-B Natriuret Pep 389 H Impressions: Facial Bones CT 01/30/18 23:35 IMPRESSION: Moderate cellulitis pattern of the left paracentral face. Renal Ultrasound 02/08/18 00:00 IMPRESSION: Limited study due to body habitus. No hydronephrosis Assessment & Plan - Diagnosis (1) Acute kidney injury Is this a current diagnosis for this admission?: Yes Plan: Patient is nonoliguric without significant proteinuria nor hematuria. Differential diagnosis likely secondary to possible medication induced acute interstitial nephritis versus contrast induced nephropathy. Current infection is also a risk factor. Patient's kidney function has been unchanged for the last 4 days but has some symptoms attributed to AK I including lower extremity edema and minimally elevated blood pressure. Agree with changing of the antibiotics from cephalosporin to clindamycin. Both acute interstitial nephritis and contrast-induced nephropathy has its own course and will take several days to weeks for renal recovery but rest assured most likely reversible. At this time patient does not need any acute hemodialysis treatment. I will give the patient a dose of Lasix 40 mg ideally intravenously with since he does not have an IV access we will give it orally. Avoid further nephrotoxic medications. Since the patient's kidney function may take a while for complete recovery, if the patient's kidney function shows a trend of slow improvement I think he is safe to go home from that point. While here continue to monitor kidney function. (2) Hyperkalemia Is this a current diagnosis for this admission?: Yes Plan: Secondary to AK I. Patient already given Kayexalate for the last 3 days. I am hoping that the Lasix would actually help this. (3) Hypertension Is this a current diagnosis for this admission?: Yes Plan: If this is acute onset this could be secondary to acute kidney injury with fluid retention. Patient could have an underlying essential hypertension however. Resolution of fluid retention and edema could help the blood pressure. We will see what Lasix would do for the elevated blood pressure. (4) Facial abscess Is this a current diagnosis for this admission?: Yes Plan: Continue clindamycin per hospitalist service. 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 We will follow the patient with you. - Time Time Spent: Greater than 70 Minutes
[2018-02-09] MEDS ORDERED: FUROSEMIDE 40 MG TABLET PO ONE (20:00)
[2018-02-09] MEDS: INSULIN LISPRO 100 UNIT/ML 3 ML VIAL SUBCUT PRN (22:50)
[2018-02-10] MEDS: CLINDAMYCIN HCL 150 MG CAPSULE PO SCH (05:29)
[2018-02-10] MEDS: OXYCODONE HCL SR 10 MG TABLET PO PRN ×2 (05:29→11:06)
[2018-02-10] MEDS: HEPARIN SOD (PORCINE) 5,000 UNIT/ML 1 ML SYRINGE SUBCUT SCH (05:30)
[2018-02-10 06:15] LABS: ANION GAP 9 (5-19); BLOOD UREA NITROGEN 38 mg/dL (7-20); CALCIUM 9.8 mg/dL (8.4-10.2); CARBON DIOXIDE 33 mmol/L (22-30); CHLORIDE 101 mmol/L (98-107); GLUCOSE 139 mg/dL (75-110); POTASSIUM 4.8 mmol/L (3.6-5.0); SODIUM 143.4 mmol/L (137-145)
[2018-02-10] MEDS: DOCUSATE SODIUM 100 MG CAPSULE PO SCH (09:04)
[2018-02-10] MEDS: INSULIN GLARGINE,HUM.REC.ANLOG 300 UNIT/3 ML INSULN.PEN SUBCUT SCH (09:05)
[2018-02-10] MEDS: LACTOBACILLUS ACIDOPHILUS 250 MG TAB PO SCH (09:05)
--- NOTE | 2018-02-10 11:29 | PDOC DISCHARGE SUMMARY ---
General - Admit/Disc Date/PCP Admission Date/Primary Care Provider: 01/31/18 02:50 MYRA ELLINGTON Discharge Date: 02/10/18 - Additional Information Resuscitation Status: Full Code Discharge Diet: Diabetic Discharge Activity: Activity As Tolerated Home Medications: Insulin Detemir [Levemir Flextouch] 30 unit SQ Q12 01/31/18 History of Present Illness History of Present Illness: GARY JARAMILLO is a 48 year old male patient with past medical history remarkable for uncontrolled insulin-dependent diabetes mellitus, recurrent abscess, tobacco dependence and noncompliance. He presented with facial abscess and cellulitis which involves the left side of his face. Hospital Course Hospital Course: Patient has been managed with IV antibiotics aggressively with Zosyn and vancomycin and gradually he is transitioned to P IV clindamycin. General surgeon also did incision and drainage and total debridement of his cellulitis. His cellulitis has shown remarkable improvement in the drainage has stopped but still has deep wound on his left cheek which needs close follow-up and total wound care. His hospital course is complicated by acute renal failure his creatinine increased from 0.952 2.46 for which nephrology consulted. [place] [employer] recommended medical management and suggested that his kidney function will improve gradually no dialysis recommended at this time. On the day of discharge is seen patient sitting by the bedside and playing with his iPhone. He does not have any new complaint this and he is eager to go home. Physical Exam Vital Signs: Temp Pulse Resp BP Pulse Ox 98.1 F 62 17 137/74 H 98 02/10/18 08:00 02/10/18 08:00 02/10/18 08:00 02/10/18 08:00 02/10/18 08:00 Intake & Output 02/09/18 02/10/18 02/11/18 06:59 06:59 06:59 Intake Total 1794 2966 Balance 1794 2966 Weight 133.7 kg 134 kg General appearance: PRESENT: no acute distress, well-developed, well-nourished Head exam: PRESENT: other - Healing fascial cellulitis which is granulating. Respiratory exam: PRESENT: clear to auscultation juancho. ABSENT: rales, rhonchi, wheezes Cardiovascular exam: PRESENT: RRR. ABSENT: diastolic murmur, rubs, systolic murmur GI/Abdominal exam: PRESENT: other - Obese abdomen Results Laboratory Results: 02/09/18 10:22 02/10/18 05:32 02/10/18 05:32 Sodium 143.4 Potassium 4.8 Chloride 101 Carbon Dioxide 33 H Anion Gap 9 BUN 38 H Creatinine 2.45 H Est GFR ( Amer) 34 L Est GFR (Non-Af Amer) 28 L Glucose 139 H Calcium 9.8 02/07/18 23:30 Clean Catch Midstream Urine Culture - Final NO GROWTH 2 DAYS 02/01/18 04:02 NT-Pro-B Natriuret Pep 389 H Impressions: Facial Bones CT 01/30/18 23:35 IMPRESSION: Moderate cellulitis pattern of the left paracentral face. Renal Ultrasound 02/08/18 00:00 IMPRESSION: Limited study due to body habitus. No hydronephrosis Qualifiers - * [place] BEING DISCHARGED WITH ANY OF THE FOLLOWING DIAGNOSIS?: No
[2018-02-10 12:36] VITALS: BP 119/70
== END 2018-02-10 13:00 | disposition home health service (06) | DRG 623 ==
LOC: ER 22:52 → EH 01-31 02:50 → 4N 01-31 12:53
PROVIDERS: ADMIT Internal Medicine; ATTEND Internal Medicine
PROC: 3E0234Z Introduction of Serum, Toxoid and Vaccine into Muscle, Percutaneous Approach (ICD-10-PCS; principal; 2018-01-31)
PROC: 0JB10ZZ Excision of Face Subcutaneous Tissue and Fascia, Open Approach (ICD-10-PCS; 2018-02-01)
DX: E11.628 Type 2 diabetes mellitus with other skin complications (principal); L03.211 Cellulitis of face; Z68.41 Body mass index [BMI] 40.0-44.9, adult; I50.32 Chronic diastolic (congestive) heart failure; N17.9 Acute kidney failure, unspecified; E11.65 Type 2 diabetes mellitus with hyperglycemia; B95.61 Methicillin susceptible Staphylococcus aureus infection as the cause of diseases classified elsewhere; J44.9 Chronic obstructive pulmonary disease, unspecified; T36.95XA Adverse effect of unspecified systemic antibiotic, initial encounter; E66.01 Morbid (severe) obesity due to excess calories; F17.200 Nicotine dependence, unspecified, uncomplicated; D64.9 Anemia, unspecified; E11.40 Type 2 diabetes mellitus with diabetic neuropathy, unspecified; G47.33 Obstructive sleep apnea (adult) (pediatric); E87.5 Hyperkalemia; Z90.49 Acquired absence of other specified parts of digestive tract; Z82.3 Family history of stroke; Z83.3 Family history of diabetes mellitus; Z82.49 Family history of ischemic heart disease and other diseases of the circulatory system; Z79.4 Long term (current) use of insulin; Z91.19 Patient's noncompliance with other medical treatment and regimen; Z23 Encounter for immunization
CPT/HCPCS: 300; 36415; 70487; 76770; 80048; 80053; 80202; 81001; 82565; 82803; 82962; 83605; 83735; 83880; 84100; 84443; 85025; 87040; 87070; 87075; 87077; 87086; 87186; 87205; 90471; 90715; 94660; 96365; 96367; 96375; 96376; 99285; A6266; C1751; J0330; J0690; J1644; J1815; J1885; J2250; J2270; J2405; J2543; J2704; J3010; J3370; J3490; J7030; J7060